=== PATIENT | male | born 1980 | race Caucasian/White ===

== ENCOUNTER 2023-10-21 18:27 | Inpatient (IN) | payer OTHER, SELFPAY ==
[2023-10-21] VITALS (11 sets, daily range): BP systolic 91–118; BP diastolic 55–76; BMI 28.5; BMI 26.5
[2023-10-21 13:47] LABS: % Basophils 0.3 % (0-2); % Immature Granulocytes 0.3 % (0-0.5); % Lymphocytes 9.1 % (20.5-51.1); % Monocytes 1.5 % (1.7-9.3); % Neutrophils 88.8 % (42.2-75.2); Absolute Lymphocytes 0.3 10^3/uL (1.2-3.4); Absolute Monocytes 0.1 10^3/uL (0.1-0.6); Absolute Neutrophils 2.9 10^3/uL (1.4-6.5); Hematocrit 38.9 % (39.0-52.0); Hemoglobin 13.2 g/dL (13.0-18.0); Mean Corp Hgb Conc. 33.9 g/dL (33.0-37.0); Mean Corpuscular Hgb 29.1 pg (27.0-31.0); Mean Corpuscular Volume 85.7 fL (80.0-94.0); Nucleated Red Blood Cells % 0 % (-); Red Blood Cell Count 4.54 10^6/uL (4.70-6.10); Red Cell Dist. Width 13.1 % (11.5-14.5); White Blood Cell Count 3.3 10^3/uL (4.8-10.8)
--- NOTE | 2023-10-21 13:54 | ED.GENMED ---
History of Present Illness
<Lavell Galeas Jr., PA-C - Last Filed: 10/21/23 17:42>
General
Chief Complaint: Change in Mental Status
Source: patient
Exam Limitations: none
Time Seen by Provider: 10/21/23 13:29
Nursing documentation reviewed up to this point in time: agreed with
Travel History
Have you had any contact with someone who has COVID-19?: No
Do you have any symptoms of coronavirus? Fever > 100 degrees, chills, cough, shortness of breath, sore throat, loss of taste or smell, muscle aches, or headache?: No
History of Present Illness
History of Present Illness:
43-year-old male with past medical history of seizure disorder cerebral palsy presenting to the emergency department from [facility] where he was there for suicidal ideation over the past few days coming in with altered mental status and fever
today. He claims that his foot pain to his right foot was also somewhat hypoxic prior to arrival as well. Denies any recent ingestions
Review of Systems
<Lavell Galeas Jr., PA-C - Last Filed: 10/21/23 17:42>
Review of Systems
Allergies reviewed?: Yes
All Other Systems: ROS reviewed and negative except as documented in HPI and ROS
Phy Exam
<Lavell Galeas Jr., PA-C - Last Filed: 10/21/23 17:42>
Physical Exam
Physical Exam:
GENERAL: Alert , in no apparent distress
EYE: pupils equal and reactive
NECK: Supple, no significant adenopathy.
ENT: o/p clr, mmm.
CARDIAC: Regular rate and rhythm .
LUNGS: Clear breath sounds bilaterally, no acute respiratory distress, no wheezes/rales/rhonchi
ABDOMEN: Soft, without focal tenderness, no r/g, no cvat
NEUROLOGICAL: Alert not oriented, no focal neuro deficits
SKIN: Warm and dry, skin intact.
MUSCULOSKELETAL: Significant redness swelling and tenderness palpation to the right lower extremity from the mid pagan and distal eschar to the medial aspect of the forefoot on the right side, well perfused.
PSYCH: Normal and appropriate interaction.
Course
<Lavell Galeas Jr., PA-C - Last Filed: 10/21/23 17:42>
Orders/Labs/Results
Orders:
Orders
10/21/23 13:30
EKG [Electrocardiogram (*1)] Urgent
Reason for Study: Fatigue / Weakness
10/21/23 13:31
EKG- Treatment ONCE
10/21/23 13:36
Acetaminophen Urgent
Comment: ADD ON
Alcohol Urgent
Basic Metabolic Panel Urgent
COVID-19 Antigen Urgent
Source: Nasal Swab
Complete Blood Count/With Diff Urgent
Lactic Acid Urgent
Salicylate Urgent
Comment: ADD ON
Blood Culture Urgent
EMIR Source: Blood/Venous
Specimen Description:
Influenza A+B Rapid Molecular Urgent
EMIR Source: Nasal Swab
Specimen Description:
10/21/23 13:41
0.9% Sodium Chloride 1000 ml [Nss] 2,700 ml IV NOW STA
10/21/23 13:43
Acetaminophen [Tylenol] 650 mg PO NOW STA
10/21/23 13:54
Vancomycin [Vancocin] 2,000 mg 0.9% Sodium Chloride 500 ml [Nss] 500 ml IV NOW
10/21/23 14:03
Fentanyl, Urine Urgent
PTT Urgent
Prothrombin Time Urgent
Urinalysis Reflex To Culture Urgent
Date Specimen was Collected: 10/21/23
Time Specimen was Collected: 13:43
Urine Drug Abuse Screen Urgent
Date Specimen was Collected: 10/21/23
Time Specimen was Collected: 13:43
Urine Microscopic Reflex Cult Urgent
10/21/23 14:13
Add On- LAB Urgent
Tests Added?: alcohol level, salycylate laevel, tylenol level
10/21/23 14:15
Add On- LAB Urgent
Tests Added?: urine drug screen
10/21/23 14:26
Add On- LAB Urgent
Tests Added?: ammonia
10/21/23 14:30
CR Foot - Right Min 3 Views Urgent
Comment:
Reason For Exam: foot infection
10/21/23 14:31
CT Chest Pe Study Urgent
Comment:
Reason For Exam: hypoxemix leg swelling
10/21/23 14:59
Troponin I Urgent
10/21/23 17:25
Ammonia Urgent
Cefepime HCl [Maxipime] 2,000 mg IV NOW STA
10/21/23 17:26
Potassium Urgent
Abnormal Lab Results
10/21/23 10/21/23
13:36 14:03
WBC 3.3 L 10^3/uL
(4.8-10.8)
RBC 4.54 L 10^6/uL
(4.70-6.10)
Hct 38.9 L %
(39.0-52.0)
Absolute Lymphs (auto) 0.3 L 10^3/uL
(1.2-3.4)
Neutrophils % 88.8 H %
(42.2-75.2)
Lymphocytes % 9.1 L %
(20.5-51.1)
Monocytes % 1.5 L %
(1.7-9.3)
PT 16.4 H Sec
(11.4-14.6)
BUN 23 H mg/dl
(9-20)
Creatinine 1.5 H mg/dL
(0.7-1.3)
Urine Ketones Trace A
(Negative)
Urine Bilirubin 1+ A
(Negative)
Leukocyte Esterase Rfl Trace A
(Negative)
Urine Bacteria (Reflex) Few A
(Negative)
Salicylates < 1.0 L mg/dl
(2.0-20.0)
Urine Methadone Screen Positive H
(Negative)
Acetaminophen < 10 L ug/ml
(10-30)
10/21/23 13:36
Vital Signs
Initial and Last Documented VS:
Initial Vital Signs
Temp Pulse Resp BP Pulse Ox
103.2 F H 113 16 103/69 95
10/21/23 13:29 10/21/23 13:29 10/21/23 13:29 10/21/23 13:29 10/21/23 13:29
Last Documented Vital Signs
Temp Pulse Resp BP Pulse Ox
99.4 F 87 13 95/63 2
10/21/23 17:05 10/21/23 17:01 10/21/23 14:45 10/21/23 17:01 10/21/23 13:29
<Kirby Andujar, - Last Filed: 10/21/23 15:28>
Orders/Labs/Results
Orders:
Orders
10/21/23 13:30
EKG [Electrocardiogram (*1)] Urgent
Reason for Study: Fatigue / Weakness
10/21/23 13:31
EKG- Treatment ONCE
10/21/23 13:36
Acetaminophen Urgent
Comment: ADD ON
Alcohol Urgent
Basic Metabolic Panel Urgent
COVID-19 Antigen Urgent
Source: Nasal Swab
Complete Blood Count/With Diff Urgent
Lactic Acid Urgent
Salicylate Urgent
Comment: ADD ON
Blood Culture Urgent
EMIR Source: Blood/Venous
Specimen Description:
Influenza A+B Rapid Molecular Urgent
EMIR Source: Nasal Swab
Specimen Description:
10/21/23 13:41
0.9% Sodium Chloride 1000 ml [Nss] 2,700 ml IV NOW STA
10/21/23 13:43
Acetaminophen [Tylenol] 650 mg PO NOW STA
10/21/23 13:54
Vancomycin [Vancocin] 2,000 mg 0.9% Sodium Chloride 500 ml [Nss] 500 ml IV NOW
10/21/23 14:03
Fentanyl, Urine Urgent
PTT Urgent
Prothrombin Time Urgent
Urinalysis Reflex To Culture Urgent
Date Specimen was Collected: 10/21/23
Time Specimen was Collected: 13:43
Urine Drug Abuse Screen Urgent
Date Specimen was Collected: 10/21/23
Time Specimen was Collected: 13:43
Urine Microscopic Reflex Cult Urgent
10/21/23 14:13
Add On- LAB Urgent
Tests Added?: alcohol level, salycylate laevel, tylenol level
10/21/23 14:15
Add On- LAB Urgent
Tests Added?: urine drug screen
10/21/23 14:26
Add On- LAB Urgent
Tests Added?: ammonia
10/21/23 14:30
CR Foot - Right Min 3 Views Urgent
Comment:
Reason For Exam: foot infection
10/21/23 14:31
CT Chest Pe Study Urgent
Comment:
Reason For Exam: hypoxemix leg swelling
10/21/23 14:59
Troponin I Urgent
10/21/23 17:25
Ammonia Urgent
Cefepime HCl [Maxipime] 2,000 mg IV NOW STA
10/21/23 17:26
Potassium Urgent
Abnormal Lab Results
10/21/23 10/21/23
13:36 14:03
WBC 3.3 L 10^3/uL
(4.8-10.8)
RBC 4.54 L 10^6/uL
(4.70-6.10)
Hct 38.9 L %
(39.0-52.0)
Absolute Lymphs (auto) 0.3 L 10^3/uL
(1.2-3.4)
Neutrophils % 88.8 H %
(42.2-75.2)
Lymphocytes % 9.1 L %
(20.5-51.1)
Monocytes % 1.5 L %
(1.7-9.3)
PT 16.4 H Sec
(11.4-14.6)
BUN 23 H mg/dl
(9-20)
Creatinine 1.5 H mg/dL
(0.7-1.3)
Urine Ketones Trace A
(Negative)
Urine Bilirubin 1+ A
(Negative)
Leukocyte Esterase Rfl Trace A
(Negative)
Urine Bacteria (Reflex) Few A
(Negative)
Salicylates < 1.0 L mg/dl
(2.0-20.0)
Urine Methadone Screen Positive H
(Negative)
Acetaminophen < 10 L ug/ml
(10-30)
10/21/23 13:36
Vital Signs
Initial and Last Documented VS:
Initial Vital Signs
Temp Pulse Resp BP Pulse Ox
103.2 F H 113 16 103/69 95
10/21/23 13:29 10/21/23 13:29 10/21/23 13:29 10/21/23 13:29 10/21/23 13:29
Last Documented Vital Signs
Temp Pulse Resp BP Pulse Ox
99.4 F 87 13 95/63 2
10/21/23 17:05 10/21/23 17:01 10/21/23 14:45 10/21/23 17:01 10/21/23 13:29
<KM Spencer Jr.C - Last Filed: 10/21/23 17:42>
MDM/Problems Addressed
MDM/Problems Addressed:
43-year-old male presenting to the emergency department today with concerns of altered mental status and fever from [facility] where he is currently residing due to suicidal ideation. On arrival temperature of 103.2 elevated heart rate
concern for sepsis and with likely infection source from the right foot concerning is red warm and tender. Started on IV antibiotics white count of 3.3 was given acetaminophen as well as started on a fluid bolus. Creatinine level elevated to 1.5
unclear where his baseline is no elevation of lactic acid. Urinalysis without signs of infection. Patient's hypoxia improving after receiving 2 L nasal cannula. Patient did have hypoxemia. Unclear the source CT scan was obtained to rule out PE
without evidence of PE no signs of significant pneumonia. Patient is an intravenous drug user previously concern for potential endocarditis. Blood cultures have already been sent and is being treated with empiric antibiotics plan for additional
evaluation. Patient will be admitted. Stable during ER stay.
<Lavell Galeas Jr., PA-C - Last Filed: 10/21/23 17:42>
*Critical Care Note
Total Time (30-74mins, 75-104mins- exclusive of procedures): Not Applicable
ED Attending Note
<Lavell Galeas Jr., PA-C - Last Filed: 10/21/23 17:42>
-
Portions of this chart may have been created with voice recognition software.� Occasional wrong word or��sound alike� substitutions may have occurred due to the inherent limitations of voice recognition software.
<Kirby Andujar DO - Last Filed: 10/21/23 15:28>
ED Attending Note
Patient seen and examined by attending physician: Yes
I performed the substantive portion of visit, reviewed & personally made and approve the management plan that is documented in note by myself or DAVID.: Yes
ED Attending Note:
Patient is a 43-year-old male who is brought in from [facility] where he was hospitalized for suicidal ideation and presents with change in mental status being more lethargic as well as a pulse ox below 90%. Patient admits to feeling feverish
and chilled. Patient denies coughing or nasal congestion. Patient denies feeling short of breath. Patient denies any GI or symptoms. Patient has noted that his right foot and leg are getting more swollen and red over the past 24 to 48 hours.
It was not noted originally by the staff at [facility]. On physical exam patient's cerebral palsy findings are unchanged. Patient does appear pale with dry mucous membranes. Head is normocephalic with a supple neck without adenopathy. Heart
is regular and lungs are clear. Abdomen soft nontender. On the patient's right lower extremity there is large amount of erythema and swelling of the foot and right lower leg. There is an eschar that is approximately 2 cm in diameter located on
the plantar surface of the first MTP. Concern the patient has osteomyelitis. The patient really does not have any respiratory type symptoms however we will CT his chest for etiology. Patient will be treated with antibiotics and admitted.
Discharge Plan
Departure
Patient Disposition: Admit
Date of Disposition: 10/21/23
Time of Disposition: 17:41
Admit to: IMU
Admit to doctor: Trevor
Presentation/result/management discussed w/ accepting MD/DO: Hospitalist
Patient with high blood pressure during this ER visit?: No
Condition: Good
Covid-19: Not Applicable
Discharge Problem:
Sepsis, Foot infection, Hypoxemia
Prescriptions:
No Action
trazodone 50 mg Tablet
50 mg PO HS
methadone 10 mg Tablet
140 mg PO DAILY
clonazepam 0.5 mg Tablet
0.5 mg PO QID
sertraline 100 mg Tablet
100 mg PO BID
olanzapine 5 mg Tablet
5 mg PO DAILY
loperamide 2 mg Tablet
2 mg PO Q4H PRN (Reason: diarrhea)
divalproex 500 mg Tablet,Delayed Release (Dr/Ec)
1,000 mg PO HS
divalproex 500 mg Tablet,Delayed Release (Dr/Ec)
250 mg PO DAILY
omeprazole 40 mg Capsule,Delayed Release(Dr/Ec)
40 mg PO DAILY
magnesium hydroxide [Milk of Magnesia] 400 mg/5 mL Suspension
2,400 mg PO BIDPRN PRN (Reason: constipation)
nicotine 21 mg/24 hr Patch 24 Hour
1 patch TRANSDERMAL DAILY
gabapentin 100 mg Capsule
100 mg PO DAILY
olanzapine 20 mg Tablet
20 mg PO HS
Referrals:
UNKNOWN - PT NOT,INTERVIEWE [Family Provider] -
Interventions
Interventions:
*Risk Screen - Suicide Last Done: 10/21/23 13:29
*General Assessment Last Done: 10/21/23 13:29
*Neglect/Abuse Screening Last Done: 10/21/23 13:29
ED- Fall Risk Assessment Last Done: 10/21/23 13:29
*ED COVID-19 Vaccine History Last Done: 10/21/23 13:29
ED- Pulmonary Assessment Last Done: 10/21/23 13:29
ED-Psychological Assessment Last Done: 10/21/23 13:29
ED- Neurological Assessment Last Done: 10/21/23 13:29
ED- Cardiac Assessment Last Done: 10/21/23 13:29
ED Swallowing Screen Last Done: 10/21/23 13:29
--- NOTE | 2023-10-21 14:00 | EDRN ---
the pts Sp02 dipped to 91% on 2L NC, this RN notified provider Cristhian NASH and this RN titrated 02 up to 4L NC, Sp02 came up to 96%, will continue to monitor the pt closely
[2023-10-21] MEDS: NSS 2700 ML IV (14:02)
[2023-10-21] MEDS: TYLENOL 650 MG PO ×2 (14:02→20:38)
[2023-10-21 14:04] LABS: COVID-19 Antigen Negative (Negative)
[2023-10-21 14:08] LABS: Lactic Acid 1.6 mmol/L (0.7-2.0)
[2023-10-21] MEDS: VANCOCIN 540 MG IV (14:13)
[2023-10-21 14:28] LABS: Urine Albumin Trace (Neg - Trace); Urine Bilirubin 1+ (Negative); Urine Character Clear (Clear); Urine Color Yellow; Urine Glucose Negative (Negative); Urine Ketone Trace (Negative); Urine Leukocyte Trace (Negative); Urine Nitrite Negative (Negative); Urine Occult Blood Negative (Negative); Urine Specific Gravity 1.015 (<1.030); Urine Urobilinogen Negative (Neg - 1+)
[2023-10-21 14:31] LABS: INR 1.34; PT 16.4 Sec (11.4-14.6)
[2023-10-21 14:32] LABS: APTT 30.2 Sec (23.4-35.0)
[2023-10-21 14:35] LABS: Blood Urea Nitrogen 23 mg/dl (9-20); Calcium 8.6 mg/dl (8.4-10.2); Carbon Dioxide 23 mmol/L (22-30); Chloride 100 mmol/L (98-107); Estimated Creatinine Clearance 64 ml/min; Glucose 88 mg/dl (70-99); Sodium 135 mmol/L (135-145); eGFR 58.15
[2023-10-21 14:48] LABS: Urine Bacteria Few (Negative)
[2023-10-21 14:49] LABS: Urine Red Blood Cell 0-2 /HPF (0-2); Urine White Cell 0-2 /HPF (0-5)
[2023-10-21 15:16] LABS: Acetaminophen < 10 ug/ml (10-30); Alcohol None Detected; Salicylate < 1.0 mg/dl (2.0-20.0)
[2023-10-21 15:33] LABS: Amphetamines Negative (Negative); Barbiturates Negative (Negative); Benzodiazepines Negative (Negative); Buprenorphine Negative (Negative); Cocaine Negative (Negative); Marijuana Negative (Negative); Methadone Positive (Negative); Methamphetamines Negative (Negative); Opiates Negative (Negative); Phencyclidine Negative (Negative); Tricyclic Antidepressants Negative (Negative)
[2023-10-21 15:40] LABS: Troponin I < 0.012 ng/ml
[2023-10-21 15:49] LABS: Fentanyl, Urine Negative (Negative)
[2023-10-21] MEDS: MAXIPIME 2000 MG IV (17:39)
[2023-10-21 17:41] LABS: Ammonia < 9 umol/L (9-30)
[2023-10-21 18:17] LABS: Potassium 3.1 mmol/L (3.5-5.1)
--- NOTE | 2023-10-21 18:19 | HPS.HSE ---
Addendum entered and electronically signed by Mike Hearn MD 10/21/23 18:40:
I saw and examined the patient.
The SEAT COVER MAKER or PA's note was reviewed and I agree with the note.
Comment: 43-year-old male presents from [facility] where he had been admitted 4 days ago for presentation of suicidal ADHD and and now presents to this facility with a apparent sepsis presentation change in mental status that is improved
somewhat since arrival as was basically poorly responsive and now awake and alert although looks to be chronically ill and presenting with a fever of over 103 with an obviously infected right lower extremity from just below the knee involving the
entire foot with a large chronic appearing eschar at the base of his right great toe. His blood pressure is soft at 92 systolic he is not tachycardic but is hypoxic looks malnourished and he is leukopenic. Initial CT PE study shows no evidence of
pulmonary emboli or pneumonic infiltrate. Has been empirically started on vancomycin and cefepime in the ED. He is on chronic methadone maintenance along with a history of seizure disorder on valproate no recent seizures related by patient.
Initial plain radiologic imaging of the right foot does not show evidence of bone involvement
CT of the chest unremarkable for PE or pneumonic infiltrate
Urine drug screen only positive for methadone/presently negative for benzodiazepines although listed medication on clonazepam 4 times daily
Presentation is consistent with sepsis presumed source right lower extremity/with eschar appearance would not be at all surprised if has underlying osteomyelitis and agree with MRI
-Obtain podiatry consultation
-Continue course of vancomycin and cefepime
-Prior history of MRSA
-Assess for bacteremia blood cultures pending
-Given history of IV drug abuse obtain 2D echocardiogram
-Hypoxia source not obvious after review of CTA of chest possibly in relation to sepsis
-Check for COVID
-Given presentation and history obtain HIV
Seizure history--Obtain valproic level/
Acute kidney injury
-Unclear what his baseline is but does present hypertensive
-So will probably benefit from fluid bolus and fluids IV overnight at least
-Recheck BMP in a.m.
Opioid dependent on main maintenance methadone
-Continue on present dosing
Recent suicidal ideation
-None noted or admitted to presently
-Obtain psychiatry consultation if that changes
Rest of comorbidities as outlined by SEAT COVER MAKER and discussed and agreed on
Original Note:
Family Physician
-
Family Physician: INTERVIEWE UNKNOWN - PT NOT
Chief Complaint
-
Fever
History of Present Illness
Pt is a 43yo M w/ a PMH of Cerebral Palsy, Anxiety, Depression, Auditory Hallucinations w/ accompanying Suicidal Ideations and IV drug use who is presenting to the ED from [facility] c/o altered mentation and fever. He states he is feeling
better now, but was feeling 'out of sorts' prior to his arrival. Upon arrival patient was noted to have a fever of 103.2F. He admits that his right foot has been looking good, but it unclear of the timeline. He does admit to previously having MRSA
in that foot and requiring surgery for infection of the foot. He admits to prior IVDA but denies any usage since 2006.
Medical History
Past Medical History
Past Medical History: Reports Other
Additional Past Medical History:
Anxiety/Auditory Hallucination
Seizure Disorder
Cerebral Palsy
IV Drug Abuse
Past Surgical History: Reports Other
Additional Past Surgical History:
Right Foot Infection s/p I&D
Hip Replacement
Social History
Tobacco: Smoker (1 ppd)
Alcohol: Former (Quit in 2006)
Drug: Former User (Quit in 2006)
Family History
Family History: Not pertinent
Allergies / Home Medications
Allergies reflects when Allergies were last updated in [facility].
Home Medications with original date entered in [facility]
Allergy/Medication List:
Allergies
Allergy/AdvReac Type Severity Reaction Status Date / Time
aripiprazole [From Abilify] Allergy Rash Verified 10/21/23 13:44
Home Medications
clonazepam 0.5 mg tablet 0.5 mg PO QID 10/21/23
divalproex 500 mg tablet,delayed release 1,000 mg PO HS 10/21/23
divalproex 500 mg tablet,delayed release 250 mg PO DAILY 10/21/23
gabapentin 100 mg capsule 100 mg PO DAILY 10/21/23
loperamide 2 mg tablet 2 mg PO Q4H PRN diarrhea 10/21/23
magnesium hydroxide 400 mg/5 mL oral suspension (Milk of Magnesia) 2,400 mg PO BIDPRN PRN constipation 10/21/23
methadone 10 mg tablet 140 mg PO DAILY 10/21/23
nicotine 21 mg/24 hr daily transdermal patch 1 patch transdermal DAILY 10/21/23
olanzapine 20 mg tablet 20 mg PO HS 10/21/23
olanzapine 5 mg tablet 5 mg PO DAILY 10/21/23
omeprazole 40 mg capsule,delayed release 40 mg PO DAILY 10/21/23
sertraline 100 mg tablet 100 mg PO BID 10/21/23
trazodone 50 mg tablet 50 mg PO HS 10/21/23
Review of Systems
-
A 12 point ROS was completed and negative except as noted: Yes
Constitutional: Reports Fever
Respiratory: Denies Trouble Breathing
Cardiac: Denies Chest Pain or Palpitations
Abdomen/GI: Denies Abdominal Pain, Nausea, Vomiting or Diarrhea
Physical Exam
Vital Signs
Vital Signs
Temp Pulse Resp BP Pulse Ox
99.4 F 87 13 92/61 2
10/21/23 17:05 10/21/23 18:00 10/21/23 14:45 10/21/23 17:37 10/21/23 13:29
Physical Exam
General: Other (Appears ill with poor coloring)
HEENT: Moist mucous membranes and Oxygen (Nasal cannula)
Respiratory: Clear and Non Labored Respirations
Cardiac: S1/S2 and Regular Rhythm
GI: Soft and Non Tender
Musculoskeletal: No Clubbing and No Cyanosis
Skin: Warm, Dry and Other (Erythema right foot extending up the pagan; Large callous with non-healing wound in area of 1st MTP joint)
Neuro: Awake, Alert and Oriented
Psych: Calm
Laboratory Results
-
10/21/23 13:36
10/21/23 17:42
Laboratory Results
PT 16.4 Sec (11.4-14.6) H 10/21/23 14:03
INR 1.34 10/21/23 14:03
APTT 30.2 Sec (23.4-35.0) 10/21/23 14:03
Lactic Acid 1.6 mmol/L (0.7-2.0) 10/21/23 13:36
Total Bilirubin Cancelled 10/21/23 13:36
AST Cancelled 10/21/23 13:36
ALT Cancelled 10/21/23 13:36
Alkaline Phosphatase Cancelled 10/21/23 13:36
Troponin I < 0.012 ng/ml 10/21/23 14:59
Data Reviewed
-
Lab Data: Labs Reviewed by me
Impression/Plan
-
Severe Sepsis secondary to RLE Cellulitis secondary to Non-Healing Wound
-Admit to IMU
-Check Foot MRI as concern for possible underlying osteomyelitis
-Check Echo
-Await blood cultures
-Continue vancomycin and cefepime
-Consult Wound Care
-Consult Podiatry
Acute Kidney Injury
-Continue IVFs
-Recheck labs in AM
Seizure Disorder
-Continue divalproex - Check level
Anxiety/Auditory Hallucinations
-Patient from [facility]
-Continue regimen clonazepam, olanzapine, sertraline and trazodone as prior to admission
Opioid Dependence
-Continue methadone as prior to admission
Tobacco Use Disorder
-Encourage smoking cessation
-Continue nicotine patch
DVT proph: Lovenox
Code Status: Full Code
[2023-10-21] MEDS: KCL 40 MEQ PO (18:53)
--- NOTE | 2023-10-21 19:07 | EDRN ---
Cristhian Galeas stated that the pt was in [facility] for suicidal ideation, this RN spoke with the pt and the pt denies feeling like he wants to harm himself currently, the pt stated to this RN that he has felt better the past two days, Cristhian NASH
made aware of this along with Sridevi Byrne
--- NOTE | 2023-10-21 19:12 | EDRN ---
Charge nurse notified of the pt needing to be on a one to one
--- NOTE | 2023-10-21 19:18 | EDRN ---
verbal report given to receiving IMU nurse
--- NOTE | 2023-10-21 19:24 | EDRN ---
this Rn spoke with the pt again and the pt denies feeling like he is going to hurt himself or others, the pt stated to this RN, 'I don't want to hurt myself at all i was just having a weak moment and went to [facility] for help, i feel much
better now, i promise i don't feel suicidal at all, i understand that you are worried about me', this RN notified Cristhian Galeas and Sridevi Byrne and per provider the pt is to be on a one to one, charge nurse and equipment records supervisor notified again
--- NOTE | 2023-10-21 20:22 | PHA.VAN.IN ---
Assessment
- Assessment
Renal Function: Unknown baseline
Maximum Temperature: 103.2 F oral 10/21 @ 1329
Concomitant Antimicrobials: cefepime
Plan
- Plan
Initial / Loading Dose: vanc 2000mg given in ED @ 1413 + additional 500mg pending administration
Maintenance Regimen: dosing by level
Monitoring: random level 10/22 0600
Pharmacokinetics Vancomycin I
- -
Patient Age: 43
Patient Sex: Male
Vancomycin Day #: 1
Indication: Diabetic Foot
Requesting Provider: Sridevi Hassan
Pertinent Antimicrobial Allergies:
no pertinent antimicrobial allergies
Height / Weight:
Height 6 ft 1 in
Actual Weight 91.2 kg
- Vital Signs / Lab Results
Temp Pulse Resp BP Pulse Ox
98.9 F 89 13 115/72 2
10/21/23 20:08 10/21/23 19:30 10/21/23 14:45 10/21/23 18:56 10/21/23 13:29
Lab Results - Hematology
10/21/23
13:36
WBC 3.3 L
Lab Results - Chemistry
10/21/23 10/21/23 10/21/23
13:36 13:36 13:36
BUN Cancelled 23 H
Creatinine Cancelled 1.5 H
Estimated Creat Clear Cancelled
Albumin
10/21/23
13:36
BUN
Creatinine
Estimated Creat Clear 64
Albumin Cancelled
10/21/23
13:36
Lactic Acid 1.6
Lab Results - Urine
10/21/23
14:03
Urine Nitrite (Reflex) Negative
Leukocyte Esterase Rfl Trace A
Urine WBC (Reflex) 0-2
Urine Bacteria (Reflex) Few A
Microbiology Results
10/21/23 13:36 Influenza Types A & B (JODI) - Final
Nasal Swab Negative for Influenza A & B, NAAT
Negative results must be combined with clinical observations
and patient history.
Nucleic Acid Amplification test (NAAT)performed on the
[facility] [employer] platform.
[2023-10-21] MEDS: DESYREL 50 MG PO (20:37)
[2023-10-21] MEDS: DEPAKOTE (12 HR RELEASE) 1000 MG PO (20:39)
[2023-10-21] MEDS: ZOLOFT 100 MG PO (20:39)
[2023-10-21] MEDS: ZYPREXA 20 MG PO (20:39)
[2023-10-21] MEDS: KLONOPIN 0.5 MG PO (20:40)
[2023-10-21 20:47] LABS: HIV Combo Negative (Negative)
[2023-10-21] MEDS: NSS 1000 IV (20:47)
[2023-10-21] MEDS: VANCOCIN HCL 500 MG 100 IV (20:59)
--- NOTE | 2023-10-21 21:02 | W.CS.POD ---
Consult Summary - Podiatry
-
43-year-old male presents from [facility] where he had been admitted 4 days ago for presentation of suicidal ADHD and and now presents to the [facility] with fever and change of mental status , Podiatry has been asked to evaluate Rt foot
cellultis/abscess. Patient says that he has Rt foot callus lesion for long time and some times the lesion falls of sometimes. He does not have any dormitory counselor that he follows, he does says that few yrs ago he had Rt foot surgery . HE is is in no
acute distress, no SOB, no chest pain
Reviewed PMH, meds and allergies
Exm : Rt foot edematous, palpable pedal pulses
Rt lower leg and foot is erythematous, warm to touch.
Rt submet 1st thick callus lesion with an area of small blister around the callus, no drainage , no open ulceration noted, no signs of any crepitus felt. no signs of any deep abscess felt.
WBC count 3.3
Xrays Rt foot no bone pathology or osteomyelitis
A/p: Rt lower leg and foot cellultis.
Rt plantar large callus lesion.
Plan ; PT evaluated in ER
Cont IV abx
Pending Rt foot MRI. r/o any fluid collection /abscess
Podiatry will follow,
--- NOTE | 2023-10-21 21:03 | PTCARENOTE ---
Patient arrived to room 3351 around 1999. Afebrile. Oriented to room and use of call bowman. CHG wipe down, tele monitor applied showing NSR. 02 2L NC, 99%. 1:1 sitter at bedside for SI. Pt denies any SI at this time, and instructed to report to staff
if feeling any ideations. Admission questions done, emergency contact is step mother Charis who lives in [place].
RLE red, warm, and swollen; +1 pedal pulses, elevated on pillow. Reports chronic pain to right hip, medicated per OCT. RLE nerve pain is intermittent. Pt ate a lunch box, no swallowing issues present. MRSA swab sent. Plan for MRI tomorrow.
[2023-10-22] VITALS (14 sets, daily range): BP systolic 89–138; BP diastolic 50–86; PULSE 81; O2SAT 98
[2023-10-22] MEDS: TYLENOL 650 MG PO ×2 (00:05→15:50)
[2023-10-22] MEDS: STERILE WATER FOR INJECTION 10 ML IV ×3 (02:55→17:50)
[2023-10-22] MEDS: MAXIPIME 2000 MG IV ×3 (02:55→17:49)
--- NOTE | 2023-10-22 04:15 | DOWNTIME ---
There was a [employer] Downtime on 10/22/2023 from 0111 to 10/22/2023 at 0405. Downtime documentation of patient's care, including medication administrations, has been reconciled in the electronic record per guidelines. Refer to the
patient's paper chart under the miscellaneous tab to see printed paper medication records and downtime forms.
[2023-10-22 06:02] LABS: Hematocrit 28.2 % (39.0-52.0); Hemoglobin 9.8 g/dL (13.0-18.0); Mean Corp Hgb Conc. 34.8 g/dL (33.0-37.0); Mean Corpuscular Hgb 29.4 pg (27.0-31.0); Mean Corpuscular Volume 84.7 fL (80.0-94.0); Mean Platelet Volume 11.9 fL (7.4-10.4); Platelet Count 61 10^3/uL (130-400); Red Blood Cell Count 3.33 10^6/uL (4.70-6.10); Red Cell Dist. Width 13.3 % (11.5-14.5); White Blood Cell Count 4.4 10^3/uL (4.8-10.8)
[2023-10-22 06:05] LABS: Vancomycin Random 16.9 ug/ml
[2023-10-22 06:25] LABS: ALT (SGPT) < 10 U/L (0-50); AST (SGOT) 28 U/L (17-59); Albumin 2.5 g/dl (3.5-5.0); Alkaline Phosphatase 52 U/L (38-126); Blood Urea Nitrogen 19 mg/dl (9-20); Calcium 7.3 mg/dl (8.4-10.2); Carbon Dioxide 18 mmol/L (22-30); Chloride 107 mmol/L (98-107); Estimated Creatinine Clearance 81 ml/min; Glucose 102 mg/dl (70-99); Magnesium 1.8 mg/dl (1.6-2.3); Potassium 3.6 mmol/L (3.5-5.1); Sodium 135 mmol/L (135-145); Total Bilirubin 0.5 mg/dl (0.2-1.3); Total Protein 5.7 g/dl (6.3-8.2); eGFR > 60.00
[2023-10-22 06:29] LABS: Depakane 90.1 ug/ml (50.0-120.0)
--- NOTE | 2023-10-22 07:02 | W.PN.HOSP.TC ---
Today's Communication/Plan
-
Continue present course of vancomycin and cefepime
Monitor thrombocytopenia and anemia
Obtain iron and B12 levels
Await blood culture results appreciate podiatry input
If blood cultures turn down man positive will obtain infectious disease consult for a protracted fever with continued leukopenia
Will obtain 2D echocardiogram to further evaluate
Psych consultation pending/recent suicidal ideation and came to us from [facility]
Assessment / Plan
Assessment / Plan
43-year-old male presents from [facility] where he had been admitted 4 days ago for presentation of suicidal ADHD and and now presents to this facility with a apparent sepsis presentation change in mental status that is improved somewhat since
arrival as was basically poorly responsive and now awake and alert although looks to be chronically ill and presenting with a fever of over 103 with an obviously infected right lower extremity from just below the knee involving the entire foot with
a large chronic appearing eschar at the base of his right great toe.� His blood pressure is soft at 92 systolic he is not tachycardic but is hypoxic looks malnourished and he is leukopenic.� Initial CT PE study shows no evidence of pulmonary emboli
or pneumonic infiltrate.� Has been empirically started on vancomycin and cefepime in the ED.� He is on chronic methadone maintenance along with a history of seizure disorder on valproate no recent seizures related by patient.
Initial plain radiologic imaging of the right foot does not show evidence of bone involvement
CT of the chest unremarkable for PE or pneumonic infiltrate
Urine drug screen only positive for methadone/presently negative for benzodiazepines although listed medication on clonazepam 4 times daily
Severe Sepsis secondary to RLE Cellulitis secondary to Non-Healing Wound
-Admit to IMU
-Check Foot MRI as concern for possible underlying osteomyelitis
-Check Echo
-Await blood cultures
-Continue vancomycin and cefepime
-Consult Wound Care
-Consult Podiatry appreciated
-History of MRSA/check screening
-If blood cultures positive will obtain infectious disease input
Acute Kidney Injury
-Continue IVFs
-Recheck labs in AM/creatinine dropped from 1.5-1.3
Anemia/pancytopenia?
-Leukopenia on presentation and initial hemoglobin 13.2>>> now 9.8 after fluids
-Thrombocytopenia/unclear baseline we will have to monitor with DVT prophylaxis and defer further chemical prophylaxis
-HIV pending
Seizure Disorder
-Continue divalproex - Check level
Anxiety/Auditory Hallucinations
-Patient from [facility]
-Continue regimen clonazepam, olanzapine, sertraline and trazodone as prior to admission
Opioid Dependence
-Continue methadone as prior to admission
Tobacco Use Disorder
-Encourage smoking cessation
-Continue nicotine patch
DVT proph: Lovenox
Code Status: Full Code
Anticipated Discharge: 24 - 48 hours
Subjective/Interval History
-
Date of Service: October 22, 2023
No distress overnight remains on low-flow O2 BP borderline soft denies much pain denies any suicidal ideation although remains on one-to-one again febrile overnight up to 101
Objective Data
-
Labs:
Laboratory Results
10/22/23
04:50
WBC 4.4 L
Hgb 9.8 L D
Hct 28.2 L
Plt Count 61 L
Sodium 135
Potassium 3.6
Chloride 107
Carbon Dioxide 18 L
BUN 19
Creatinine 1.3
Glucose 102 H
Calcium 7.3 L
Total Bilirubin 0.5
AST 28
ALT < 10
Alkaline Phosphatase 52
Vital Signs:
Vital Signs
Temp Pulse Resp BP Pulse Ox
99.1 F 89 13 93/52 95
10/22/23 04:18 10/22/23 06:01 10/22/23 06:01 10/22/23 06:01 10/22/23 06:01
I&O
10/21/23 10/22/23 10/23/23
06:59 06:59 06:59
Intake Total 1040 / 1040
Output Total 2400 / 2400
Balance -1360 / -1360
Review of Systems
-
History Source: Patient
Constitutional: Reports Fever and Fatigue
Musculoskeletal: Reports Muscle Pain, Muscle Stiffness and Edema (Right lower extremity)
Physical Exam
-
General: Appears Chronically Ill
HEENT: Normocephalic
Respiratory: Clear to Auscultation
Cardiac: Regular Rhythm
GI: Soft
Musculoskeletal: Edema, Right Lower Extrem (Erythematous/right foot edematous with palpable pedal pulses in the area submetatarsal in the first toe thick callus)
Psych: Intact Judgement/Insight (Denies present suicidal ideation)
Data Reviewed
-
Total Time Spent with Patient (in minutes): 45
Diagnostic Radiology: Report Reviewed by me (No evidence of any osteomyelitis based on right foot plain x-ray)
Labs: Labs Reviewed by me
[2023-10-22 07:05] LABS: HIV Combo Negative (Negative)
[2023-10-22] MEDS: ZOLOFT 100 MG PO ×2 (08:23→21:00)
[2023-10-22] MEDS: PROTONIX 40 MG PO (08:23)
[2023-10-22] MEDS: NEURONTIN 100 MG PO (08:23)
[2023-10-22] MEDS: KLONOPIN 0.5 MG PO ×4 (08:23→21:00)
[2023-10-22] MEDS: NSS 1000 IV ×2 (08:23→21:04)
[2023-10-22] MEDS: ZYPREXA 5 MG PO (08:23)
--- NOTE | 2023-10-22 08:23 | WOUNDNOTE ---
R PLANTAR 1ST MTH
[2023-10-22] MEDS: METHADONE 100 MG/10 ML 140 MG PO (08:24)
[2023-10-22] MEDS: DEPAKOTE (12 HR RELEASE) 250 MG PO (08:24)
--- NOTE | 2023-10-22 08:27 | WOUNDNOTE ---
[facility] RN note: Patient admitted with sepsis, RLE cellulitis. Patient admitted from [facility] for suicidal ideation. Patient is currently on a 1:1 (PCT Jaiden in room).
See H&P for complete history.
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
Wound Location and type/assessment: Patient admitted with: R plantar lateral 1st MTH brown/black necrotic dry ulcer with callus. No drainage. +diffuse RLE erythema. Trace-+1 RLE edema. +Palpable pedal pulses. Patient is able to ambulate. He is
currently R heel weight bear only RLE. Patient's shoe size 13.
Appetite: on regular diet.
Pressure redistribution devices in place: Centrella Max air. Patient can turn self in bed.
Plan: gauze dressing applied to R foot ulcer/callus. Podiatry on consult who will manage R foot ulcer.
Discussed with BLAYNE Hernandez.
Care plan to be updated and will follow as needed. Patient to follow up with firewall administrator.
--- NOTE | 2023-10-22 08:33 | PHA.VAN.FU ---
Vancomycin Assessment / Plan
- Assessment
Renal Function: SCR Decreasing (Unknown baseline. But seems to be improving)
WBC's are: Trending Down
In the past 24 hrs, patient has been: Febrile
Concomitant Antimicrobials: Cefepime
- Assessment - Therapeutic Drug Monitoring
Random Level: 10/22 @ 0440 was 16.9
- Dosing Plan
Dosing by Level: Re-dose today (1250mg)
Will continue to dose by level until baseline SCR is established
- Monitoring Plan
Random Level: 10/23 @0600
- Follow Up
Pharmacy will continue to follow.
Vancomycin Follow UP
- -
Patient Age: 43
Patient Sex: Male
Vancomycin Day #: 2
Indication: Diabetic Foot
Requesting Provider: Sridevi Hassan
Pertinent Antimicrobial Allergies:
no pertinent antimicrobial allergies
Height / Weight:
Height 6 ft 1 in
Actual Weight 91.2 kg
- Vital Signs / Lab Results
Temp Pulse Resp BP Pulse Ox
98.5 F 89 13 93/52 95
10/22/23 07:24 10/22/23 06:01 10/22/23 06:01 10/22/23 06:01 10/22/23 06:01
Lab Results - Hematology
10/21/23 10/22/23
13:36 04:50
WBC 3.3 L 4.4 L
Lab Results - Chemistry
10/21/23 10/21/23 10/21/23
13:36 13:36 13:36
BUN Cancelled 23 H
Creatinine Cancelled 1.5 H
Estimated Creat Clear Cancelled
Albumin
10/21/23 10/22/23
13:36 04:50
BUN 19
Creatinine 1.3
Estimated Creat Clear 64 81
Albumin Cancelled 2.5 L
10/21/23
13:36
Lactic Acid 1.6
Lab Results - Urine
10/21/23
14:03
Urine Nitrite (Reflex) Negative
Leukocyte Esterase Rfl Trace A
Microbiology Results
10/21/23 13:36 Influenza Types A & B (JODI) - Final
Nasal Swab Negative for Influenza A & B, NAAT
Negative results must be combined with clinical observations
and patient history.
Nucleic Acid Amplification test (NAAT)performed on the
[employer] platform.
Therapeutic Drug Monitoring
Random Vancomycin 16.9 ug/ml 10/22/23 04:50
--- NOTE | 2023-10-22 08:36 | WOUNDNOTE ---
[facility] RN note: Patient admitted with sepsis, RLE cellulitis. Patient admitted from [facility] for suicidal ideation. Patient is currently on a 1:1 (PCT Jaiden in room).
See H&P for complete history.
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
Wound Location and type/assessment: Patient admitted with: R plantar medial 1st MTH brown/black necrotic dry ulcer with callus. No drainage. +diffuse RLE erythema. Trace-+1 RLE edema. +Palpable pedal pulses. Patient is able to ambulate. He is
currently R heel weight bear only RLE. Patient's shoe size 13.
Appetite: on regular diet.
Pressure redistribution devices in place: Centrella Max air. Patient can turn self in bed.
Plan: gauze dressing applied to R foot ulcer/callus. Heels elevated off bed with pillow. Podiatry on consult who will manage R foot ulcer. Will follow peripherally as needed.
Discussed with BLAYNE Hernandez.
Care plan to be updated and will follow as needed. Patient to follow up with anaesthesiologist.
[2023-10-22 08:58] LABS: Iron 29 ug/dl (49-181)
[2023-10-22 08:59] LABS: Glycohemoglobin (HgbA1c) 5.4 % (4.0-5.6)
[2023-10-22 09:07] LABS: Percent Saturation 14 % (20-50); Total Iron Binding Capacity 207 ug/dl (261-462)
[2023-10-22] MEDS: NICODERM TRANSDERMAL TRANSDERM (09:18)
[2023-10-22 09:34] LABS: Vitamin B12 733 pg/ml (239-931)
--- NOTE | 2023-10-22 09:39 | PTCARENOTE ---
Pt transported to MRI with PCT Jaiden.
[2023-10-22] MEDS: NICODERM TRANSDERMAL 21 MG TRANSDERM (10:59)
[2023-10-22] MEDS: VANCOCIN 275 MG IV (11:58)
--- NOTE | 2023-10-22 12:33 | CON.MD ---
Consultation - Medical
-
patient seen chart reviewed. spoke with cm. the patient is a 43 year old male from [place] who was being rx at a psych out pt facility there who was referred to [facility] for depression and si. he was there only three or four days before being
sent here for a foot infection. he reports the foot infection is not new. he has dealt with it for about two years. he denies that he is diabetic. glucose on admit is 102. this consult was ordered for si. the patient does report si but no plan or
intent. he does hear voices telling him derogatory things about himself. sometimes the voices do tell him to kill himself but he has never acted on it and says he never would. sleep is not good. has difficulty falling and staying asleep. appetite
good w weight gain of 25 lbs. he can enjoy some aspects of life. liked talking to the other patients at [facility]. he does not have much energy generally. he is impaired by Cerebral palsy. he had received PT in the past and did well but sees
his physical conditioning as having deteriorated a lot in recent past. he has little emotional support. family is scattered see social hx below patient w hx addiction see below. current psych meds klonopin o.5 mg q id this dose he has taken for
many years. was on xanax in the past . zoloft increased from 150 daily to 200 mg daily zyprexa inc from 5 mg daily to 25 mg daily trazodone 50 mg q hs he does feel current psych meds are helping' i need a few more days on it'
past psych hx patient has had four psych admits for depression/hallucinations. has never made a suicide attempt and says he would not was rx [facility] as an out pt
medical hx patient has infected foot/leg which is currently being assessed. there is concern re osteomyelitis. anemia indices microcytic and iron studies support deficiency thereof b12 normal... tcp wbc low despite infection patient born w cp.
seizure d/o on depakote 1250 mg daily gabapentin once daily ?pain? patient on methadone maintenance
substance abuse hx etoh and opiate abuse many years ago. has taken methadone for since 2006 and remained sober
fh addiction
social hx lives alone. parents while he was young. lived w dad who is now and stepmother. his mother lives in [place]. stepmother in [facility]. little contact w either. brother recently dx w ca. does not speak to him. no hx sexual or
physical trauma. on disability. never really gainfully employed few supports
mse alert ox3 cooperative some psychomotor slowing not clear if result of cp or depression. speech very soft at time hard to hear thought process goal oriented hallucinations as above depressed mood constricted affect suicidal thoughts no intent
or plan insight judgment fair memory seems intact
dx major depression w psychotic fx
plan would continue meds as they are for now. i did wonder if the bzp and methadone are making him sedating but it could also be infection/illness in addition to natural demeanor. will monitor. do not feel he needs one to one. he has si but says
would never act on it. should return to [facility] upon medical clearance we will follow
--- NOTE | 2023-10-22 14:39 | CM ---
Patient from [facility] with Hx Cerebral Palsy with Dx Severe Sepsis secondary to RLE Cellulitis secondary to Non-Healing Wound, PATRICIA, Anemia/pancytopenia? Room air. Receiving methadone, IV Abx. Psych Consult noted-
recommend off 1:1. Seen by wound care nurse.
PT Eval 10/22; requires mod-max assist of 2 for transfers, not ambulated as patient unable to maintain heel only WB on right, recommend skilled rehab.
Met with patient who resides alone in a 5th floor apartment in elevator building in [facility].
The patient has been independent in ADLs and ambulation using his SPC.
He has no DME, prior VN or SNF.
PCP - Dr Strickland in [place]
[facility]
Spoke with Amy Solomon [facility]; they are unable to accept the patient back unless he if fully ambulatory and not a fall risk. A new referral would need to be submitted.
Phone call to [facility]; left message requesting callback to discuss possible patient referral to [facility] or [facility].
Spoke with [facility]; she will review referral and see if they can accomodate patient on methadone. Patient would need 30 day exception on PASRR signed by MD OR Level II clearance for SNF.
Plan follow up with [facility] and [facility].
--- NOTE | 2023-10-22 16:36 | PTCARENOTE ---
PT 1:1 d.c. AAO oriented, drowsy at times. Tylenol given for fever 101. Vital signs stable.
--- NOTE | 2023-10-22 17:02 | WOUNDNOTE ---
[facility] RN note: t/c Spoke with Pack Mule Worker Michelle who confirmed the [facility] order was faxed to [facility].
[2023-10-22] MEDS: LOVENOX 40 MG SC (17:50)
[2023-10-22] MEDS: ZYPREXA 20 MG PO (21:00)
[2023-10-22] MEDS: DEPAKOTE (12 HR RELEASE) 1000 MG PO (21:00)
[2023-10-22] MEDS: DESYREL 50 MG PO (21:00)
[2023-10-23] VITALS (12 sets, daily range): BP systolic 84–142; BP diastolic 59–82; PULSE 77; O2SAT 92
[2023-10-23] MEDS: STERILE WATER FOR INJECTION 10 ML IV ×2 (04:07→12:09)
[2023-10-23] MEDS: MAXIPIME 2000 MG IV ×2 (04:07→12:08)
[2023-10-23 06:00] LABS: Vancomycin Random 10.9 ug/ml
--- NOTE | 2023-10-23 06:44 | W.PN.HOSP.TC ---
Today's Communication/Plan
-
Continue present course of vancomycin/with Staph aureus in the blood can discontinue cefepime
Will consult infectious disease
Follow-up blood cultures
Continue to monitor pancytopenia
Appreciate psychiatry input and no evidence of suicidal ideation presently and off one-to-one
Will need PT evaluation and has to be fully ambulatory to go back to [facility]
Assessment / Plan
Assessment / Plan
43-year-old male presents from [facility] where he had been admitted 4 days ago for presentation of suicidal ADHD and and now presents to this facility with a apparent sepsis presentation change in mental status that is improved somewhat since
arrival as was basically poorly responsive and now awake and alert although looks to be chronically ill and presenting with a fever of over 103 with an obviously infected right lower extremity from just below the knee involving the entire foot with
a large chronic appearing eschar at the base of his right great toe.� His blood pressure is soft at 92 systolic he is not tachycardic but is hypoxic looks malnourished and he is leukopenic.� Initial CT PE study shows no evidence of pulmonary emboli
or pneumonic infiltrate.� Has been empirically started on vancomycin and cefepime in the ED.� He is on chronic methadone maintenance along with a history of seizure disorder on valproate no recent seizures related by patient.
Initial plain radiologic imaging of the right foot does not show evidence of bone involvement
CT of the chest unremarkable for PE or pneumonic infiltrate
Urine drug screen only positive for methadone/presently negative for benzodiazepines although listed medication on clonazepam 4 times daily
Severe Sepsis secondary to RLE Cellulitis secondary to Non-Healing Wound
Staph aureus bacteremia prior history of MRSA
-Admit to IMU
-Check Foot MRI as concern for possible underlying osteomyelitis/MRI not showing bone involvement
-Check Echo
-Continue vancomycin and cefepime
-Consult Wound Care
-Consult Podiatry appreciated
-History of MRSA/check screening
-Initial blood culture now growing Staph aureus/will get ID input
Acute Kidney Injury
-Continue IVFs
-Recheck labs in AM/creatinine dropped from 1.5-1.3
Anemia/pancytopenia?
-Leukopenia on presentation and initial hemoglobin 13.2>>> now 9.8 after fluids
-Thrombocytopenia/unclear baseline we will have to monitor with DVT prophylaxis and defer further chemical prophylaxis
-HIV negative
Seizure Disorder
-Continue divalproex - Check level
Anxiety/Auditory Hallucinations
-Patient from [facility]
-Continue regimen clonazepam, olanzapine, sertraline and trazodone as prior to admission
Opioid Dependence
-Continue methadone as prior to admission
Tobacco Use Disorder
-Encourage smoking cessation
-Continue nicotine patch
DVT proph: Lovenox
Code Status: Full Code
Anticipated Discharge: > 48 hours
Subjective/Interval History
-
Date of Service: October 23, 2023
Doing okay good urine output and eating well last temperature was on 4 PM yesterday afebrile since this pain referred and redness to the lower extremity. More worried about stuff he left behind at [facility] and told him to talk to case
management in that regard as he may not be able to go back there. Now off one-to-one
Objective Data
-
Vital Signs:
Vital Signs
Temp Pulse Resp BP Pulse Ox
98.1 F 78 12 116/73 95
10/23/23 04:40 10/23/23 06:00 10/23/23 06:00 10/23/23 06:00 10/23/23 06:00
I&O
10/21/23 10/22/23 10/23/23
06:59 06:59 06:59
Intake Total 1040 / 1040 720 / 720
Output Total 2400 / 2400 1400 / 1400
Balance -1360 / -1360 -680 / -680
Review of Systems
-
History Source: Patient
Constitutional: Reports Fatigue
Respiratory: Reports No Symptoms
Cardiac: Reports No Symptoms
Physical Exam
-
General: No Apparent Distress
HEENT: Normocephalic and PERRLA
Respiratory: Clear to Auscultation
Cardiac: Regular Rhythm
GI: Soft and Nontender
Musculoskeletal: Edema, Right Lower Extrem (Deformity and hallux with callus formation less erythema and swelling since admission)
Skin: Rash and IV Access / Catheter Site
Neuro: Awake
Psych: Anxious
Data Reviewed
-
Total Time Spent with Patient (in minutes): 56
Medical Tests (Nuc Med, Echo etc): Report Reviewed by me (No convincing evidence on MRI of osteomyelitis with evidence of soft tissue wound infection only in the medial forefoot)
Labs: Labs Reviewed by me (White count 4.4/initial blood culture growing Staph aureus)
[2023-10-23] MEDS: NSS IV (07:35)
[2023-10-23] MEDS: NICODERM TRANSDERMAL 21 MG TRANSDERM (08:42)
[2023-10-23] MEDS: NEURONTIN 100 MG PO (08:42)
[2023-10-23] MEDS: KLONOPIN 0.5 MG PO ×4 (08:42→21:49)
[2023-10-23] MEDS: ZYPREXA 5 MG PO (08:42)
[2023-10-23] MEDS: DEPAKOTE (12 HR RELEASE) 250 MG PO (08:42)
[2023-10-23] MEDS: PROTONIX 40 MG PO (08:42)
[2023-10-23] MEDS: ZOLOFT 100 MG PO ×2 (08:42→20:51)
[2023-10-23] MEDS: METHADONE 100 MG/10 ML 140 MG PO (08:43)
--- NOTE | 2023-10-23 08:55 | PHA.VAN.FU ---
Vancomycin Assessment / Plan
- Assessment
Renal Function: No New Labs Today
In the past 24 hrs, patient has been: Febrile
Concomitant Antimicrobials: cefepime
- Assessment - Therapeutic Drug Monitoring
Random Level: 10.9 - drawn ~17.5H after previous dose of 1250mg
- Dosing Plan
Dosing by Level: Re-dose today (Vanc 1500mg)
Dosing Comments: increasing dose slightly given decrease in level
- Monitoring Plan
Random Level: 10/24 06
- Follow Up
Pharmacy will continue to follow.
Vancomycin Follow UP
- -
Patient Age: 43
Patient Sex: Male
Vancomycin Day #: 3
Indication: Diabetic Foot
Requesting Provider: Sridevi Hassan
Pertinent Antimicrobial Allergies:
no pertinent antimicrobial allergies
Height / Weight:
Height 6 ft 1 in
Actual Weight 91.2 kg
- Vital Signs / Lab Results
Temp Pulse Resp BP Pulse Ox
98.1 F 73 15 112/66 95
10/23/23 04:40 10/23/23 08:00 10/23/23 08:00 10/23/23 08:00 10/23/23 08:00
Lab Results - Hematology
10/21/23 10/22/23
13:36 04:50
WBC 3.3 L 4.4 L
Lab Results - Chemistry
10/21/23 10/21/23 10/21/23
13:36 13:36 13:36
BUN Cancelled 23 H
Creatinine Cancelled 1.5 H
Estimated Creat Clear Cancelled
Albumin
10/21/23 10/22/23
13:36 04:50
BUN 19
Creatinine 1.3
Estimated Creat Clear 64 81
Albumin Cancelled 2.5 L
10/21/23
13:36
Lactic Acid 1.6
Microbiology Results
10/21/23 13:36 Blood Culture - Preliminary
Blood/Venous Staphylococcus aureus
Gram Stain - Preliminary
10/21/23 20:07 MRSA Screen - Final
Nose No Methicillin Resistant Staphylococcus aureus isolated.
10/21/23 18:01 Blood Culture - Preliminary
Blood/Venous No Growth in 24 hours- Final report to follow
10/21/23 13:36 Influenza Types A & B (JODI) - Final
Nasal Swab Negative for Influenza A & B, NAAT
Negative results must be combined with clinical observations
and patient history.
Nucleic Acid Amplification test (NAAT)performed on the
[employer] platform.
Therapeutic Drug Monitoring
Random Vancomycin 10.9 ug/ml 10/23/23 05:21
--- NOTE | 2023-10-23 10:52 | W.PN.UPDATE ---
Update Note
Progress Note Update
patient seen chart reviewed. patient reports in the hospital he feels more relaxed and it is easier for him to sleep. he does continue w auditory hallucinations although presently not telling him to harm self. he has not been consistent in giving
me hx of meds. now says he was on zyprexa 20 mg for over six months at 20 mg and this should be enough time for him to have responded. discussed switching to a different antipsychotic. he has not taken risperdal in the past. side effects risks vs
benefits discussed. he did not gain weight with zyprexa but weight gain is also a risk with risperdal. will cut back zyprexa eliminating am dose and reduce hs dose to 15 mg start risperdal 1 mg bid. did not change other medications. noted
patient need to be able to ambulate to return to . another issue...his belongings were left at when he came here including his cell phone and his car keys. could cm check on this for him as he is very anxious they will be lost. will follow
[2023-10-23] MEDS: VANCOCIN 300 MG IV (12:09)
[2023-10-23] MEDS: VANCOCIN 300 ML IV (12:09)
--- NOTE | 2023-10-23 14:38 | CON.ID ---
Consultation
-
Date/Time Consultation Requested: 10/23/23 6:55
Date/Time Consultation Performed: 10/23/23 14:39
Requesting Provider: Dr Hearn
Performing Provider: Dr Ventura
Reason for Consultation: s aureus bacteremia
Chief Complaint / Past History
Chief Complaint
sepsis, ams
History of Present Illness
Mr Cabrera is a 43 year old male with a current history of a chronic foot wound previously requiring surgery due to MRSA infection, remote history of IV drug abuse, auditory hallucinations with suicidal ideations, cerebral palsy who presented here
from [facility] for fever and altered mental status. On arrival was poorly responsive, now awake and alert. Reports last IVDU was 2006 - denies sharing needles at that time but reports that most of his friends who were using came down with s
aurues infections within a few months. He always had trouble with the right hip and developed a septic right hip joint in 2017 requiring replacement. He also gives a vague history of 'brain infection' at that time. Reports more recently he's had
s aureus bacteremia that was attributed to the right foot. His right foot is surprisingly benign at this time. There is right LE edema that is notable and intermittent per patient 'worse when my foot acts us.' The foot wound probes 1 mm deep in 4
different locations but definately no probe to bone - no significant erythema, warmth, tenderness or drainage. The skin around the wound is anesthetic but he has feeling in the dorsal and plantar foot. The right hip now is not red, hot or swollen.
He reports increase from his baseline right hip pain but that the pain in the right foot is worse. No other hardwear. No other suspected skin infections. The right knee is 'popping' but not red, hot, swollen or tender.
Since arrival here initially febrile to 103.2 orally, mild hypotension, systolic 92, normal HR with occasional tachycardia, wbc 3.3 on arrival now 4.4, hgb 9.8, plt 61, L shift is noted, eos are not present, INR 1.3, cr initially 1.5 now 1.3, a1c
5.4, K 3.6, co2 18, ammonia <9, UA no pyuria, UDS + methadone only, hiv screen negative, covid ag neg, 10/22 MRI LE: medial forefoot wound without evidence of osteomyelitis, 10/21 foot xray: no evidence of osteo, CTA PE: no pe, blood culturs x2 4
hours apart are both positive - first IDd as s aureus, nasal mrsa swab negative, repeeat blood cultures x2 are in progress, TTE: no vegetations, currently on vancomycin and cefepime. ID is consulted for assistance with management.
Past History
Allergy History:
aripiprazole [From Abilify] Allergy (Verified 10/21/23 13:44)
Rash
Review of Systems
Review of Systems
General: Fever and Chills
All systems: All other systems were reviewed and were negative
Vital Signs
Temp Pulse Resp BP Pulse Ox
97.8 F 79 12 118/79 96
10/23/23 11:55 10/23/23 10:00 10/23/23 10:00 10/23/23 10:00 10/23/23 10:00
Physical Exam
Physical Exam
Constitutional: No Acute Distress
Cardiovascular: Regular Rate and S1/S2; Negative Murmur or Rub
Pulmonary: Clear and Symmetric; Negative Wheezes, Rales or Rhonchi
Gastrointestinal: Soft, Non Tender, Non Distended and Normal Bowel Sounds
Extremities: Other (1+ edeam of the RLE; R hip no erythema, warmth or fluctuance; there is tenderness along the hip posteriorly )
Skin: Warm and Dry; Negative Rash or Jaundice
Wound: Other (right foot superficial wound - probes 1 mm deep at most - no probe to bone, no erythema, warmth, tenderness or draiange)
Lab / Diagnostic Study Results
10/22/23 04:50
10/22/23 04:50
Abs Immat Gran (auto) 0.0 10^3/uL (0-0.05) 10/21/23 13:36
Absolute Neuts (auto) 2.9 10^3/uL (1.4-6.5) 10/21/23 13:36
Absolute Lymphs (auto) 0.3 10^3/uL (1.2-3.4) L 10/21/23 13:36
Absolute Monos (auto) 0.1 10^3/uL (0.1-0.6) 10/21/23 13:36
Absolute Basos (auto) 0.0 10^3/uL (0-0.2) 10/21/23 13:36
Immature Gran % 0.3 % (0-0.5) 10/21/23 13:36
Neutrophils % 88.8 % (42.2-75.2) H 10/21/23 13:36
Lymphocytes % 9.1 % (20.5-51.1) L 10/21/23 13:36
Monocytes % 1.5 % (1.7-9.3) L 10/21/23 13:36
Eosinophils % 0.0 % (0-6) 10/21/23 13:36
Basophils % 0.3 % (0-2) 10/21/23 13:36
PT 16.4 Sec (11.4-14.6) H 10/21/23 14:03
INR 1.34 10/21/23 14:03
Lactic Acid 1.6 mmol/L (0.7-2.0) 10/21/23 13:36
Microbiology Results
Micro:
10/23/23 09:43 Blood Culture - Pending
Blood/Venous
10/21/23 18:01 Blood Culture - Preliminary
Blood/Venous Positive culture in progress
Gram Stain - Preliminary
10/21/23 13:36 Blood Culture - Preliminary
Blood/Venous Staphylococcus aureus
Gram Stain - Preliminary
10/21/23 20:07 MRSA Screen - Final
Nose No Methicillin Resistant Staphylococcus aureus isolated.
10/23/23 08:29 Blood Culture - Pending
Blood/Venous
10/21/23 13:36 Influenza Types A & B (JODI) - Final
Nasal Swab Negative for Influenza A & B, NAAT
Negative results must be combined with clinical observations
and patient history.
Nucleic Acid Amplification test (NAAT)performed on the
[employer] NOW platform.
Assessment / Plan
S aureus bacteremia
Foot wound - not diabetic
H/o S aureus bacteremia - R hip septic joint s/p replacement
PATRICIA, Pancytopnia
Seizure Disorder - on divalproex
Remote history of IVDU
- repeat blood cultures x2 in progress and daily until persistently clear
- TTE: no vegetations - if bacteremia persistent then would proceed to MELISSA
- MRI foot not consistent with osteomyelitis
- Xray of the R hip and pelvis to start
- appreciate podiatry input
- continue vancomycin, add cefazolin
- pending course might be a candidate for a long acting lipoglycopeptide, alternatively a course of IV therapy if it is felt that patient would be safe with a line
- follow clinically
--- NOTE | 2023-10-23 16:00 | CM ---
Patient from [facility] with Hx Cerebral Palsy with Dx Severe Sepsis secondary to RLE Cellulitis secondary to Non-Healing Wound, PATRICIA, Anemia/pancytopenia? Room air. Receiving methadone, IV Abx. Psych Consult. Seen
by wound care nurse.
Spoke with Jc [facility] Manager (ph [phone]); request that facility deliver patient's belongings including his wallet, ID and cell phone. He will have a automobile drivers drop off the belongings with security around 6pm and ask that they bring
them up to patient's room.
Met with patient and told him [facility] will bring him his belongings and he was relieved about that. He has an ortho shoe given to him today. He feels he will be able to ambulate when PT works with him again.
Spoke with Saira with [facility]; second request to please see patient with Hx substance abuse re; referral to inpatient psych facility. Will need facility that can accomodate medical needs - most likely patient will be ambulatory with RW and need
wound care. She will ask Liborio to see him this evening. Probable referral to [facility].
Plan follow patient's progress with PT.
Plan follow up with [facility].
Plan Inpatient Psych/Substance Abuse Facility.
--- NOTE | 2023-10-23 16:11 | W.PN.POD ---
Today's Communication
Today's Communication
Patient stable per podiatry
Assessment / Plan
-
A/P : resolved Rt lower leg cellultis.
Rt plantar large callus lesion - debrided at bedside
Plan ; Will cont local wound care with topical Bactroban ointment to the Rt submet 1st ulceration
DH pressure relief shoe and wt bear as tolerated.
Rt foot xrays no osteomyelitis
Rt foot MRI with no osteomyelitis or no fluid collection /abscess
No surgical intervention by podiatry
Subjective
Chief Complaint
Rt lower leg cellultis
Subjective
PT seen at bedside, doing well, no fever, chills. Resolved redness to Rt lower leg
Objective
Temp Pulse Resp BP Pulse Ox
97.8 F 68 8 108/76 96
10/23/23 11:55 10/23/23 14:00 10/23/23 14:00 10/23/23 14:00 10/23/23 14:00
10/22/23 04:50
10/22/23 04:50
Vital Signs and Lab results were reviewed.
Rt foot resolved erythema and resolved edema.
B/L palpable pedal pulses
Rt lower leg normal skin temp to touch
Rt submet 1st thick callus lesion with an area of small blister around the callus, no drainage , no open ulceration noted, no signs of any crepitus felt. no signs of any deep abscess felt.
--- NOTE | 2023-10-23 16:43 | PTCARENOTE ---
Patient OOB to chair with assist x1, right Law[place] shoe on. Patient has no c/o pain. pleasant and compliant.
[2023-10-23] MEDS: LOVENOX 40 MG SC (17:30)
[2023-10-23] MEDS: RISPERDAL 1 MG PO (20:51)
[2023-10-23] MEDS: ANCEF 10 IV (20:51)
[2023-10-23] MEDS: DEPAKOTE (12 HR RELEASE) 1000 MG PO (21:48)
[2023-10-23] MEDS: DESYREL 50 MG PO (21:48)
[2023-10-23] MEDS: ZYPREXA 15 MG PO (21:49)
--- NOTE | 2023-10-23 22:33 | PTCARENOTE ---
Patient received all belongings from security office. This nurse removed 3 packs of cigarettes, driver utility worker and medication bottles from room. Patient requested he keep 2 empty methadone bottles at his bedside since the prescription information is on the
bottle. Patient with multiple brown paper bags containing clothes/electronics/personal belongings/father's ashes/wallet/drivers licence/glasses/cell phones and chargers.
[2023-10-24] VITALS (10 sets, daily range): BP systolic 103–133; BP diastolic 65–91; PULSE 76; O2SAT 96
[2023-10-24] MEDS: ANCEF 10 IV ×3 (05:09→21:55)
[2023-10-24 05:26] LABS: Hematocrit 28.5 % (39.0-52.0); Hemoglobin 10.1 g/dL (13.0-18.0); Mean Corp Hgb Conc. 35.4 g/dL (33.0-37.0); Mean Corpuscular Hgb 29.8 pg (27.0-31.0); Mean Corpuscular Volume 84.1 fL (80.0-94.0); Red Blood Cell Count 3.39 10^6/uL (4.70-6.10); Red Cell Dist. Width 13.8 % (11.5-14.5); White Blood Cell Count 2.6 10^3/uL (4.8-10.8)
[2023-10-24 05:38] LABS: Blood Urea Nitrogen 12 mg/dl (9-20); Calcium 8.1 mg/dl (8.4-10.2); Carbon Dioxide 26 mmol/L (22-30); Chloride 102 mmol/L (98-107); Estimated Creatinine Clearance 117 ml/min; Glucose 110 mg/dl (70-99); Potassium 3.5 mmol/L (3.5-5.1); Sodium 137 mmol/L (135-145); eGFR > 60.00
[2023-10-24 05:50] LABS: Vancomycin Random 10.9 ug/ml
[2023-10-24 05:51] LABS: Mean Platelet Volume 11.6 fL (7.4-10.4); Platelet Count 52 10^3/uL (130-400)
--- NOTE | 2023-10-24 07:11 | W.PN.HOSP.TC ---
Today's Communication/Plan
-
Continue cefazolin
Continue follow-up blood cultures still remaining positive may need MELISSA
Continue to monitor leukopenia and thrombocytopenia
Monitor weightbearing status and assess PT performance as has to be fully ambulatory for [facility] to take back
Psych also following off one-to-one
Assessment / Plan
Assessment / Plan
43-year-old male presents from [facility] where he had been admitted 4 days ago for presentation of suicidal ADHD and and now presents to this facility with a apparent sepsis presentation change in mental status that is improved somewhat since
arrival as was basically poorly responsive and now awake and alert although looks to be chronically ill and presenting with a fever of over 103 with an obviously infected right lower extremity from just below the knee involving the entire foot with
a large chronic appearing eschar at the base of his right great toe.� His blood pressure is soft at 92 systolic he is not tachycardic but is hypoxic looks malnourished and he is leukopenic.� Initial CT PE study shows no evidence of pulmonary emboli
or pneumonic infiltrate.� Has been empirically started on vancomycin and cefepime in the ED.� He is on chronic methadone maintenance along with a history of seizure disorder on valproate no recent seizures related by patient.
Initial plain radiologic imaging of the right foot does not show evidence of bone involvement
CT of the chest unremarkable for PE or pneumonic infiltrate
Urine drug screen only positive for methadone/presently negative for benzodiazepines although listed medication on clonazepam 4 times daily
Severe Sepsis secondary to RLE Cellulitis secondary to Non-Healing Wound
Staph aureus bacteremia prior history of MRSA
-Admit to IMU>> MedSurg
-Check Foot MRI as concern for possible underlying osteomyelitis/MRI not showing bone involvement
-Check Echo TTE no vegetation seen
-Continue vancomycin and cefepime
-Consult Wound Care appreciated
-Consult Podiatry appreciated
-History of MRSA/MRSA screen here negative/vancomycin DC'd
-Initial blood culture now growing Staph aureus/ ID input changed to cefazolin
Acute Kidney Injury
-Continue IVFs
-Recheck labs in AM/creatinine dropped from 1.5-1.3>> now 1.0
Anemia/pancytopenia?
-Leukopenia on presentation and initial hemoglobin 13.2>>> now 9.8 >> 10.1
-Thrombocytopenia/unclear baseline we will have to monitor with DVT prophylaxis and defer further chemical prophylaxis
-HIV negative
Seizure Disorder
-Continue divalproex - Check level
Anxiety/Auditory Hallucinations
-Patient from [facility]
-Continue regimen clonazepam, olanzapine, sertraline and trazodone as prior to admission
Opioid Dependence
-Continue methadone as prior to admission
Tobacco Use Disorder
-Encourage smoking cessation
-Continue nicotine patch
DVT proph: Lovenox
Code Status: Full Code
Anticipated Discharge: 24 - 48 hours
Subjective/Interval History
-
Date of Service: October 24, 2023
No new symptoms or complaints
Objective Data
-
Labs:
Laboratory Results
10/24/23
04:58
WBC 2.6 L
Hgb 10.1 L
Hct 28.5 L
Plt Count 52 L
Sodium 137
Potassium 3.5
Chloride 102
Carbon Dioxide 26
BUN 12
Creatinine 0.9
Glucose 110 H
Calcium 8.1 L
Vital Signs:
Vital Signs
Temp Pulse Resp BP Pulse Ox
98.1 F 63 13 103/69 95
10/24/23 03:04 10/24/23 04:00 10/24/23 04:00 10/24/23 04:00 10/24/23 04:00
I&O
10/23/23 10/24/23 10/25/23
06:59 06:59 06:59
Intake Total 720 / 720 240 / 240
Output Total 1400 / 1400 2650 / 2650
Balance -680 / -680 -2410 / -2410
Review of Systems
-
All other systems: Not reviewed unless documented
Physical Exam
-
General: Appears Chronically Ill
HEENT: Normocephalic
Respiratory: Clear to Auscultation
Cardiac: Regular Rhythm
GI: Soft and Nontender
Musculoskeletal: Edema, Right Upper Extrem
Neuro: Awake, Alert, Oriented, AO x 3 and No Motor Deficits
Psych: Negative Suicidal
--- NOTE | 2023-10-24 07:56 | PHA.VAN.FU ---
Vancomycin Assessment / Plan
- Assessment
Renal Function: SCR Decreasing
In the past 24 hrs, patient has been: Afebrile
Concomitant Antimicrobials: cefazolin
- Assessment - Therapeutic Drug Monitoring
Random Level: 10.9 - drawn ~17H after previous dose of 1500mg
- Dosing Plan
Adjust Regimen to: Vanc 1250mg Q12H - give 1000mg now then start regimen at 1800
New Regimen Predicts: AUC (416), Peak (27.9), Trough (10)
Since patient maintaining level > 12H after previous dose of 1500mg, will start Q12H regimen at slightly lower dosing
Continue to follow renal function
- Monitoring Plan
No level(s) ordered at this time: consider levels in next few days
- Follow Up
Pharmacy will continue to follow.
Vancomycin Follow UP
- -
Patient Age: 43
Patient Sex: Male
Vancomycin Day #: 4
Indication: Bacteremia
Requesting Provider: Sridevi Hassan
Pertinent Antimicrobial Allergies:
no pertinent antimicrobial allergies
Height / Weight:
Height 6 ft 1 in
Actual Weight 91.2 kg
- Vital Signs / Lab Results
Temp Pulse Resp BP Pulse Ox
98.1 F 63 13 103/69 95
10/24/23 03:04 10/24/23 04:00 10/24/23 04:00 10/24/23 04:00 10/24/23 04:00
Lab Results - Hematology
10/21/23 10/22/23 10/24/23
13:36 04:50 04:58
WBC 3.3 L 4.4 L 2.6 L
Lab Results - Chemistry
10/21/23 10/21/23 10/21/23
13:36 13:36 13:36
BUN Cancelled 23 H
Creatinine Cancelled 1.5 H
Estimated Creat Clear Cancelled
Albumin
10/21/23 10/22/23 10/24/23
13:36 04:50 04:58
BUN 19 12
Creatinine 1.3 0.9
Estimated Creat Clear 64 81 117
Albumin Cancelled 2.5 L
10/21/23
13:36
Lactic Acid 1.6
Microbiology Results
10/21/23 13:36 Blood Culture - Preliminary
Blood/Venous Staphylococcus aureus
Gram Stain - Preliminary
10/21/23 18:01 Blood Culture - Preliminary
Blood/Venous Positive culture in progress
Gram Stain - Preliminary
10/21/23 20:07 MRSA Screen - Final
Nose No Methicillin Resistant Staphylococcus aureus isolated.
Therapeutic Drug Monitoring
Random Vancomycin 10.9 ug/ml 10/24/23 04:58
[2023-10-24] MEDS: DEPAKOTE (12 HR RELEASE) 250 MG PO (08:11)
[2023-10-24] MEDS: PROTONIX 40 MG PO (08:12)
[2023-10-24] MEDS: ZOLOFT 100 MG PO ×2 (08:12→20:38)
[2023-10-24] MEDS: KLONOPIN 0.5 MG PO ×4 (08:12→21:29)
[2023-10-24] MEDS: NICODERM TRANSDERMAL 21 MG TRANSDERM (08:12)
[2023-10-24] MEDS: NEURONTIN 100 MG PO (08:12)
[2023-10-24] MEDS: METHADONE 100 MG/10 ML 140 MG PO (08:12)
[2023-10-24] MEDS: RISPERDAL 1 MG PO ×2 (08:12→20:38)
[2023-10-24] MEDS: BACTROBAN 2% OINTMENT 1 APPLIC TOPICAL (08:15)
[2023-10-24] MEDS: VANCOCIN 200 IV (09:30)
--- NOTE | 2023-10-24 10:06 | W.PN.UPDATE ---
Update Note
Progress Note Update
patient seen chart reviewed. spoke with nursing. the patient is 'tired' presumably due to illness, immobility, affective sx. he is not currently suicidal. he does continue w hallucinations not command type. the last time he was hallucination free
was about one year ago. he had been taking zyprexa for about six months without resolution. the patient is now on risperdal started this week. the zyprexa will be tapered as the risperdal dosage is increased. he is not complaining of any side
effects. noted that has been asking for b cares consult. patient has actually been sober since 2006 and does not at this point need rehab. a placement closer to his home in [place] has been suggested [facility]'
forwarded this info to his case managers. on a + note [facility] delivered his belongings and he now has his phone and keys. psych will check in w him on weekend.
--- NOTE | 2023-10-24 11:11 | PTCARENOTE ---
Patient AAOx3, flat affect. Reports still hearing voices but no suicidal ideations. Making needs known. VSS. Baseline +LE neuropathy. No pain. +pulses. Wound care performed. Continuing to monitor patient.
--- NOTE | 2023-10-24 11:13 | W.PN.ID1 ---
Date of Service
Date of Service: October 24, 2023
Today's Communication
follow repeat blood cultures
- continue cefazolin stop vanc
- pending course might be a candidate for a long acting lipoglycopeptide, alternatively a course of IV therapy if it is felt that patient would be safe with a line or unable to arrange placement
Assessment / Plan
S aureus bacteremia
Cellulitis -resolved
Foot wound - not diabetic
H/o S aureus bacteremia - R hip septic joint s/p replacement
PATRICIA, Pancytopnia
Seizure Disorder - on divalproex
Remote history of IVDU
- 10/22 photos did show more erythematous foot - under wound care tab; most likely source of bacteremia
- repeat blood cultures x2 in progress - continue to follow
- TTE: no vegetations - if bacteremia persistent then would proceed to MELISSA
- MRI foot not consistent with osteomyelitis
- Xray of the R hip and pelvis - no evidence of osteomyelitis,
- continue cefazolin stop vanc
- pending course might be a candidate for a long acting lipoglycopeptide, alternatively a course of IV therapy if it is felt that patient would be safe with a line or unable to arrange placement
- follow clinically
Chief Complaint
-: Fever and Bacteremia
Subjective / Review of Systems
No further fevers
bp stable
isolate MSSA
xry of the hip without evidence of chronic osteo
echo without veg
Vital Signs / Physical Exam
Vital Signs
Vital Signs
Temp Pulse Resp BP Pulse Ox
98.0 F 57 13 118/70 95
10/24/23 07:20 10/24/23 11:08 10/24/23 11:08 10/24/23 11:08 10/24/23 11:08
Physical Exam
Constitutional: No Acute Distress
Cardiovascular: Regular Rate and S1/S2; Negative Murmur or Rub
Pulmonary: Clear and Symmetric; Negative Wheezes or Rales
Gastrointestinal: Soft, Non Tender, Non Distended and Normal Bowel Sounds
Skin: Warm and Dry; Negative Rash or Jaundice
Wound: Other (dressing take down deferred)
Objective Data
Lab Data
Lab Results
10/24/23 04:58
10/24/23 04:58
PT 16.4 Sec (11.4-14.6) H 10/21/23 14:03
INR 1.34 10/21/23 14:03
APTT 30.2 Sec (23.4-35.0) 10/21/23 14:03
Estimated Creat Clear 117 ml/min 10/24/23 04:58
Lactic Acid 1.6 mmol/L (0.7-2.0) 10/21/23 13:36
Total Bilirubin 0.5 mg/dl (0.2-1.3) 10/22/23 04:50
AST 28 U/L (17-59) 10/22/23 04:50
ALT < 10 U/L (0-50) 10/22/23 04:50
Alkaline Phosphatase 52 U/L (38-126) 10/22/23 04:50
Most recent labs reviewed.
Micro Results:
10/23/23 09:43 Blood Culture - Preliminary
Blood/Venous No Growth in 24 hours- Final report to follow
10/21/23 18:01 Blood Culture - Preliminary
Blood/Venous S aureus-Methicillin Sensitive
Gram Stain - Preliminary
10/21/23 13:36 Blood Culture - Preliminary
Blood/Venous S aureus-Methicillin Sensitive
Gram Stain - Preliminary
10/23/23 08:29 Blood Culture - Preliminary
Blood/Venous No Growth in 24 hours- Final report to follow
10/24/23 04:58 Blood Culture - Pending
Blood/Venous
10/21/23 20:07 MRSA Screen - Final
Nose No Methicillin Resistant Staphylococcus aureus isolated.
10/21/23 13:36 Influenza Types A & B (JODI) - Final
Nasal Swab Negative for Influenza A & B, NAAT
Negative results must be combined with clinical observations
and patient history.
Nucleic Acid Amplification test (NAAT)performed on the
[employer] platform.
Care Review
Plan reviewed with: Other Provider (clinical pharmacist - lipoglycopeptide availability)
--- NOTE | 2023-10-24 11:43 | CM ---
Addendum entered by Le Rai RN 10/24/23 14:56:
Message from Dr Ventura; patient will need cefazolin 2gm iv q8 hrs through 11/02.
Spoke with [facility] (ph [phone], fax [phone]) will not consider a referral on this patient until he is independent in all ADLs without an assistive device, off IV antibiotics, and they a request 201 form.
Jose De Jesus from PT confirmed he is not going to be independent without a device. Requested updated therapy notes.
Spoke with [facility] (ph [phone], fax [phone]); they can accept the referral to their Medical Recovery Unit for this patient who is ambulatory with min assist & RW and who is on Abx. They do not want a 201
form. Referral sent via Active Fax.
Plan follow up with [facility] re; acceptance.
Addendum entered by Le Rai RN 10/24/23 12:57:
Spoke with patient and relayed that [facility] is making referrals to [facility] as his preferred facility, and other behavioral inpatient units, and patient agreed.
Original Note:
Patient from [facility] with Hx Cerebral Palsy with Dx Severe Sepsis secondary to RLE Cellulitis secondary to Non-Healing Wound, PATRICIA, Anemia/pancytopenia? Room air. Receiving methadone, IV Abx. Psych Consult. Per
nurses note 11/21: Reports still hearing voices but no suicidal ideations. Seen by wound care nurse- issued Chris ibarra. PT Eval 10/23: transfers requires supervision, Patient ambulated 5' then 8' with SPC and min A x 1, recommend inpt psych v SNF.
Spoke with [facility] Chávez; Liborio saw the patient yesterday evening and he agreed to Inpatient Psych referrals. Saira was made aware that Dr Zamudio requests referral to [facility] in [place]. Dr Zamudio stating patient has
been sober for years and does not need rehab ([facility] aware patient on methadone). She will also try [facility] and [facility] as they take patients with medical needs. Clinical info for referral sent via Active Fax to her fax [phone].
[facility] apparently delivered patient's belongings to him yesterday as requested.
Plan follow up with [facility] re; Inpatient Psych placement possibly at [facility].
--- NOTE | 2023-10-24 15:13 | CM ---
Patient from [facility] with Hx Cerebral Palsy with Dx Severe Sepsis secondary to RLE Cellulitis secondary to Non-Healing Wound, PATRICIA, Anemia/pancytopenia? Room air. Receiving methadone, IV Abx. Psych Consult. Per
nurses note 11/21: Reports still hearing voices but no suicidal ideations. Seen by wound care nurse- issued Chris ibarra. PT Eval 10/23: transfers requires supervision, Patient ambulated 5' then 8' with SPC and min A x 1, recommend inpt psych v SNF.
Spoke with JORY Chávez; Liborio saw the patient yesterday evening and he agreed to Inpatient Psych referrals. Saira was made aware that Dr Zamudio requests referral to [facility] in [place]. Dr Zamudio stating patient has
been sober for years and does not need rehab (JORY aware patient on methadone).
[facility] apparently delivered patient's belongings to him yesterday as requested.
Message from Dr Ventura; patient will need cefazolin 2gm iv q8 hrs through 11/02. provided script.
Spoke with [facility] (ph [phone], fax [phone]) will not consider a referral on this patient until he is independent in all ADLs without an assistive device, off IV antibiotics, and they a request 201 form.
Jose De Jesus from PT confirmed he is not going to be independent without a device. Requested updated therapy notes.
Phone calls x2 to [facility] Admissions- finally answered by Nabil at answering service who took message to callback about referral. Confirmed fax # [phone]- referral sent via Active Fax.
Plan follow up with [facility] re; Inpatient Psych placement.
[2023-10-24] MEDS: LOVENOX 40 MG SC (17:20)
[2023-10-24] MEDS: TYLENOL 650 MG PO (17:20)
[2023-10-24] MEDS: ZYPREXA 15 MG PO (21:29)
[2023-10-24] MEDS: DESYREL 50 MG PO (21:29)
[2023-10-24] MEDS: DEPAKOTE (12 HR RELEASE) 1000 MG PO (21:29)
--- NOTE | 2023-10-24 21:37 | PTCARENOTE ---
Assumed care of Pt from day RN. Pt AAOX3, slow, quiet speech. Per Pt he has not had any audible hallucination all day. Pt vitals stable at this time. Assessment care and vitals as charted.
[2023-10-25] MEDS: ANCEF 10 IV ×3 (04:09→21:50)
[2023-10-25 05:16] LABS: Hemoglobin 10.7 g/dL (13.0-18.0); Mean Corp Hgb Conc. 34.5 g/dL (33.0-37.0); Mean Corpuscular Hgb 29.4 pg (27.0-31.0); Mean Corpuscular Volume 85.2 fL (80.0-94.0); Mean Platelet Volume 11.6 fL (7.4-10.4); Platelet Count 60 10^3/uL (130-400); Red Blood Cell Count 3.64 10^6/uL (4.70-6.10); Red Cell Dist. Width 13.9 % (11.5-14.5); White Blood Cell Count 2.6 10^3/uL (4.8-10.8)
--- NOTE | 2023-10-25 07:09 | W.PN.HOSP.TC ---
Today's Communication/Plan
-
Continue present management IV cefazolin
Continue to monitor PT progress to hopefully get him off ambulatory device
[place] will be finding appropriate psych facility will need IV antibiotic therapy through october further management will depend on ID recommendations at that point
Assessment / Plan
Assessment / Plan
43-year-old male presents from [facility] where he had been admitted 4 days ago for presentation of suicidal ADHD and and now presents to this facility with a apparent sepsis presentation change in mental status that is improved somewhat since
arrival as was basically poorly responsive and now awake and alert although looks to be chronically ill and presenting with a fever of over 103 with an obviously infected right lower extremity from just below the knee involving the entire foot with
a large chronic appearing eschar at the base of his right great toe.� His blood pressure is soft at 92 systolic he is not tachycardic but is hypoxic looks malnourished and he is leukopenic.� Initial CT PE study shows no evidence of pulmonary emboli
or pneumonic infiltrate.� Has been empirically started on vancomycin and cefepime in the ED.� He is on chronic methadone maintenance along with a history of seizure disorder on valproate no recent seizures related by patient.
Initial plain radiologic imaging of the right foot does not show evidence of bone involvement
CT of the chest unremarkable for PE or pneumonic infiltrate
Urine drug screen only positive for methadone/presently negative for benzodiazepines although listed medication on clonazepam 4 times daily
Severe Sepsis secondary to RLE Cellulitis secondary to Non-Healing Wound
Staph aureus bacteremia prior history of MRSA/presently with MSSA and blood
-Admit to IMU>> MedSurg
-Check Foot MRI as concern for possible underlying osteomyelitis/MRI not showing bone involvement
-Check Echo TTE no vegetation seen
-Continue cefazolin/MSSA bacteremia
-Consult Wound Care appreciated
-Consult Podiatry appreciated
-History of MRSA/MRSA screen here negative/vancomycin DC'd
-ID has narrowed to cefazolin
-Initial blood culture positive for MSSA all subsequent cultures thus far no growth plan is for antibiotic therapy through November 02
Acute Kidney Injury
-Continue IVFs
-Recheck labs in AM/creatinine dropped from 1.5-1.3>> now 1.0
Anemia/pancytopenia?
-Leukopenia on presentation and initial hemoglobin 13.2>>> now 9.8 >> 10.7
-Thrombocytopenia/unclear baseline we will have to monitor with DVT prophylaxis and defer further chemical prophylaxis
-HIV negative
Seizure Disorder
-Continue divalproex - Check level
Anxiety/Auditory Hallucinations
-Patient from [facility]
-Continue regimen clonazepam, olanzapine, sertraline and trazodone as prior to admission
-Psychiatry following/issue at discharge will be finding a appropriate psych facility and whether by then still require IV antibiotic
Opioid Dependence
-Continue methadone as prior to admission
Tobacco Use Disorder
-Encourage smoking cessation
-Continue nicotine patch
DVT proph: Lovenox
Code Status: Full Code
Anticipated Discharge: 24 - 48 hours
Subjective/Interval History
-
Date of Service: October 25, 2023
Doing okay still using a 4 point cane and PT he received his items from [facility] which relates some of his anxiety
Objective Data
-
Labs:
Laboratory Results
10/25/23
04:51
WBC 2.6 L
Hgb 10.7 L
Hct 31.0 L
Plt Count 60 L
Vital Signs:
Vital Signs
Temp Pulse Resp BP Pulse Ox
97.7 F 89 18 130/78 98
10/24/23 23:01 10/24/23 23:01 10/24/23 23:01 10/24/23 23:01 10/24/23 23:01
I&O
10/24/23 10/25/23 10/26/23
06:59 06:59 06:59
Intake Total 240 / 240 490 / 490
Output Total 2650 / 2650 1830 / 1830
Balance -2410 / -2410 -1340 / -1340
Review of Systems
-
History Source: Patient
Constitutional: Reports Weakness; Denies Night Sweats or Chills
Physical Exam
-
General: Appears Chronically Ill
Respiratory: Clear to Auscultation
Cardiac: Regular Rhythm
GI: Soft
Musculoskeletal: Edema, Right Lower Extrem (Swelling and less erythema)
Neuro: Awake, Alert and Oriented
Psych: Depressed
Data Reviewed
-
Total Time Spent with Patient (in minutes): 56
Labs: Labs Reviewed by me (White count 2.6 hemoglobin 10.7)
[2023-10-25] MEDS: METHADONE 100 MG/10 ML 140 MG PO (09:30)
[2023-10-25] MEDS: NEURONTIN 100 MG PO (09:32)
[2023-10-25] MEDS: NICODERM TRANSDERMAL 21 MG TRANSDERM (09:32)
[2023-10-25] MEDS: RISPERDAL 1 MG PO ×2 (09:32→22:09)
[2023-10-25] MEDS: BACTROBAN 2% OINTMENT 1 APPLIC TOPICAL (09:32)
[2023-10-25] MEDS: ZOLOFT 100 MG PO ×2 (09:32→20:22)
[2023-10-25] MEDS: PROTONIX 40 MG PO (09:32)
[2023-10-25] MEDS: DEPAKOTE (12 HR RELEASE) 250 MG PO (09:32)
[2023-10-25] MEDS: KLONOPIN 0.5 MG PO ×4 (09:32→22:09)
[2023-10-25 09:40] VITALS: BP 113/75
--- NOTE | 2023-10-25 09:45 | W.PN.ID1 ---
Date of Service
Date of Service: October 25, 2023
Today's Communication
- continue cefazolin - tentatively x 2 weeks through 11/02, alternatively pending dispo might be a candidate for a long acting lipoglycopeptide. I will remain in contact with the team in planning and did have extensive discussion with the team
regarding dispo and potential antibiotics yesterday. A script for cefazolin was provided to case management 10/24 to assist with planning.
Assessment / Plan
S aureus bacteremia
Cellulitis -resolved
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
H/o S aureus bacteremia - R hip septic joint s/p replacement
PATRICIA, Pancytopenia
Seizure Disorder - on divalproex
Remote history of IVDU
- repeat blood cultures x2 in progress - continue to follow
- continue cefazolin - tentatively x 2 weeks through 11/02, alternatively pending dispo might be a candidate for a long acting lipoglycopeptide. I will remain in contact with the team in planning and did have extensive discussion with the team
regarding dispo and potential antibiotics yesterday. A script for cefazolin was provided to case management 10/24 to assist with planning.
- follow clinically
Chief Complaint
-: Fever and Bacteremia
Subjective / Review of Systems
afebrile
bp stable
stable leukopenia
cr stable
repeat blood cultures no growth to date
less pain in the foot - able to bear weight - approaching his baseline
Vital Signs / Physical Exam
Vital Signs
Vital Signs
Temp Pulse Resp BP Pulse Ox
97.5 F 60 20 113/75 98
10/25/23 07:20 10/25/23 09:40 10/25/23 09:40 10/25/23 09:40 10/25/23 09:40
Physical Exam
Constitutional: No Acute Distress
Cardiovascular: Regular Rate and S1/S2; Negative Murmur or Rub
Pulmonary: Clear and Symmetric; Negative Wheezes or Rales
Gastrointestinal: Soft, Non Tender, Non Distended and Normal Bowel Sounds
Skin: Warm and Dry; Negative Rash or Jaundice
Wound: Other (dressing clean/dry/intact)
Objective Data
Lab Data
Lab Results
10/25/23 04:51
10/24/23 04:58
PT 16.4 Sec (11.4-14.6) H 10/21/23 14:03
INR 1.34 10/21/23 14:03
APTT 30.2 Sec (23.4-35.0) 10/21/23 14:03
Estimated Creat Clear 117 ml/min 10/24/23 04:58
Lactic Acid 1.6 mmol/L (0.7-2.0) 10/21/23 13:36
Total Bilirubin 0.5 mg/dl (0.2-1.3) 10/22/23 04:50
AST 28 U/L (17-59) 10/22/23 04:50
ALT < 10 U/L (0-50) 10/22/23 04:50
Alkaline Phosphatase 52 U/L (38-126) 10/22/23 04:50
Most recent labs reviewed.
Micro Results:
10/23/23 08:29 Blood Culture - Preliminary
Blood/Venous No Growth in 48 hours- Final report to follow
10/24/23 04:58 Blood Culture - Preliminary
Blood/Venous No Growth in 24 hours- Final report to follow
10/25/23 04:51 Blood Culture - Pending
Blood/Venous
10/23/23 09:43 Blood Culture - Preliminary
Blood/Venous No Growth in 24 hours- Final report to follow
10/21/23 18:01 Blood Culture - Preliminary
Blood/Venous S aureus-Methicillin Sensitive
Gram Stain - Preliminary
10/21/23 13:36 Blood Culture - Preliminary
Blood/Venous S aureus-Methicillin Sensitive
Gram Stain - Preliminary
10/21/23 20:07 MRSA Screen - Final
Nose No Methicillin Resistant Staphylococcus aureus isolated.
10/21/23 13:36 Influenza Types A & B (JODI) - Final
Nasal Swab Negative for Influenza A & B, NAAT
Negative results must be combined with clinical observations
and patient history.
Nucleic Acid Amplification test (NAAT)performed on the
[employer] platform.
Care Review
Plan reviewed with: Physician (Dr Hearn - dispo)
--- NOTE | 2023-10-25 09:58 | PTCARENOTE ---
Patient AAOx3, very flat, drowsy. Reports feeling tired. Reports still having auditory hallucinations occasionally but no suicidal ideations or harmful thoughts or commands from voices. +1 RLE edema. No pain. VSS. Poor appetite. Right foot wound
CDI. Waiting for M/S bed. Continuing to closely monitor patient.
--- NOTE | 2023-10-25 11:27 | W.PN.UPDATE ---
Update Note
Progress Note Update
Pt seen, chart reviewed, case discussed with nursing staff. Pt lying in bed, very groggy/sedated. Able to wake and answer questions, but remains drowsy. Pt denies active SI or AH today. He started Risperidone 1 mg BID 10/23, which is likely
adding to sedating effect of long-term combination of Methadone maint tx and Klonopin 0.5 mg QID. Unable to fully assess mental status due to sedated state this morning. No overt signs of psychosis/halluc.
Imp: MDD with psychotic features (reported hallucinations)
Opioid Dependence, on Methadone Maintenance tx
Rec: Continue to taper down Zyprexa, monitor response to trial of Risperidone- consider changing to HS only
will follow
[2023-10-25] MEDS: LOVENOX 40 MG SC (18:06)
--- NOTE | 2023-10-25 18:35 | PTCARENOTE ---
Patient mentioned another behavioral health facility closer to his home that he would like us to look in to for him going to after discharge - it's called [facility] in [place]. Message sent to FABIANA Melendez. He also had questions about what
type of therapy our psychiatrists are recommending for him to go to after discharge. Message sent to Dr Vidal to discuss with patient tomorrow.
[2023-10-25 20:18] VITALS: BP 109/65
--- NOTE | 2023-10-25 20:35 | PTCARENOTE ---
Addendum entered by Viviana Plata RN 10/26/23 07:11:
spell check* Auditory Hallucinations
Original Note:
Assumed care of Pt from Day RN, Pt AAOX3. Pt stated he had a few audible hallucinations today that were derogatory, non with thought of harming self or others. Emotional support given. Pt has no complaints at this time. Assessment care and vitals as
charted.
[2023-10-25] MEDS: DESYREL 50 MG PO (22:08)
[2023-10-25] MEDS: ZYPREXA 10 MG PO (22:09)
[2023-10-25] MEDS: DEPAKOTE (12 HR RELEASE) 1000 MG PO (22:09)
[2023-10-26] MEDS: ANCEF 10 IV ×3 (03:35→19:57)
[2023-10-26 06:02] LABS: Hematocrit 31.2 % (39.0-52.0); Hemoglobin 10.7 g/dL (13.0-18.0); Mean Corp Hgb Conc. 34.3 g/dL (33.0-37.0); Mean Corpuscular Hgb 29.6 pg (27.0-31.0); Mean Corpuscular Volume 86.4 fL (80.0-94.0); Mean Platelet Volume 11.5 fL (7.4-10.4); Platelet Count 77 10^3/uL (130-400); Red Blood Cell Count 3.61 10^6/uL (4.70-6.10); Red Cell Dist. Width 13.6 % (11.5-14.5); White Blood Cell Count 3.4 10^3/uL (4.8-10.8)
[2023-10-26 06:07] LABS: Blood Urea Nitrogen 12 mg/dl (9-20); Calcium 8.1 mg/dl (8.4-10.2); Carbon Dioxide 29 mmol/L (22-30); Chloride 100 mmol/L (98-107); Estimated Creatinine Clearance > 125 ml/min; Glucose 103 mg/dl (70-99); Potassium 3.9 mmol/L (3.5-5.1); Sodium 138 mmol/L (135-145); eGFR > 60.00
--- NOTE | 2023-10-26 07:00 | W.PN.HOSP.TC ---
Today's Communication/Plan
-
Present plans are for IV cefazolin through November 02
If can find psych facility that can take him consideration for change to an oral antibiotic with consultation with ID at that point
Continue wound care
Continue attempts at ambulation to see if will require device going forward
Assessment / Plan
Assessment / Plan
43-year-old male presents from [facility] where he had been admitted 4 days ago for presentation of suicidal ADHD and and now presents to this facility with a apparent sepsis presentation change in mental status that is improved somewhat since
arrival as was basically poorly responsive and now awake and alert although looks to be chronically ill and presenting with a fever of over 103 with an obviously infected right lower extremity from just below the knee involving the entire foot with
a large chronic appearing eschar at the base of his right great toe.� His blood pressure is soft at 92 systolic he is not tachycardic but is hypoxic looks malnourished and he is leukopenic.� Initial CT PE study shows no evidence of pulmonary emboli
or pneumonic infiltrate.� Has been empirically started on vancomycin and cefepime in the ED.� He is on chronic methadone maintenance along with a history of seizure disorder on valproate no recent seizures related by patient.
Initial plain radiologic imaging of the right foot does not show evidence of bone involvement
CT of the chest unremarkable for PE or pneumonic infiltrate
Urine drug screen only positive for methadone/presently negative for benzodiazepines although listed medication on clonazepam 4 times daily
Severe Sepsis secondary to RLE Cellulitis secondary to Non-Healing Wound
Staph aureus bacteremia prior history of MRSA/presently with MSSA and blood
-Admit to IMU>> MedSurg
-Check Foot MRI as concern for possible underlying osteomyelitis/MRI not showing bone involvement
-Check Echo TTE no vegetation seen
-Continue cefazolin/MSSA bacteremia
-Consult Wound Care appreciated
-Consult Podiatry appreciated
-History of MRSA/MRSA screen here negative/vancomycin DC'd
-ID has narrowed to cefazolin
-Initial blood culture positive for MSSA all subsequent cultures thus far no growth plan is for antibiotic therapy through November 02
Acute Kidney Injury
-Continue IVFs
-Recheck labs in AM/creatinine dropped from 1.5-1.3>> now 1.0
Anemia/pancytopenia?
-Leukopenia on presentation and initial hemoglobin 13.2>>> now 9.8 >> 10.7
-Thrombocytopenia/unclear baseline we will have to monitor with DVT prophylaxis and defer further chemical prophylaxis
-HIV negative
Seizure Disorder
-Continue divalproex - Check level
Anxiety/Auditory Hallucinations
-Patient from [facility]
-Continue regimen clonazepam, olanzapine, sertraline and trazodone as prior to admission
-Psychiatry following/issue at discharge will be finding a appropriate psych facility and whether by then still require IV antibiotic
Opioid Dependence
-Continue methadone as prior to admission
Tobacco Use Disorder
-Encourage smoking cessation
-Continue nicotine patch
DVT proph: Lovenox
Code Status: Full Code
Anticipated Discharge: 24 - 48 hours
Subjective/Interval History
-
Date of Service: October 26, 2023
States he had more trouble getting to sleep last night eventually did sleep and woke him from sleep on rounds. No new complaints. Did not ambulate much yesterday.
Objective Data
-
Labs:
Laboratory Results
10/26/23
05:35
WBC 3.4 L
Hgb 10.7 L
Hct 31.2 L
Plt Count 77 L D
Sodium 138
Potassium 3.9
Chloride 100
Carbon Dioxide 29
BUN 12
Creatinine 0.8
Glucose 103 H
Calcium 8.1 L
Vital Signs:
Vital Signs
Temp Pulse Resp BP Pulse Ox
98.1 F 57 16 109/65 98
10/26/23 03:23 10/25/23 20:18 10/25/23 20:18 10/25/23 20:18 10/25/23 20:34
I&O
10/25/23 10/26/23 10/27/23
06:59 06:59 06:59
Intake Total 490 / 490 800 / 800
Output Total 1830 / 1830 2275 / 2275
Balance -1340 / -1340 -1475 / -1475
Review of Systems
-
History Source: Patient
Constitutional: Reports No Symptoms
EENT: Reports No Symptoms Reported
Respiratory: Reports No Symptoms
Psych: Reports Depressed
Physical Exam
-
General: Appears Chronically Ill
HEENT: Normocephalic
Respiratory: Clear to Auscultation
Cardiac: Regular Rhythm
GI: Soft
Musculoskeletal: Edema, Right Lower Extrem
Psych: Calm
Data Reviewed
-
Total Time Spent with Patient (in minutes): 45
Labs: Labs Reviewed by me (White count 3.4 hemoglobin 10.7 but stable platelet count 77,000 up from 60,000/chemistry stable)
[2023-10-26 07:46] VITALS: BP 118/74
--- NOTE | 2023-10-26 09:32 | W.PN.ID1 ---
Date of Service
Date of Service: October 26, 2023
Today's Communication
- continue cefazolin - tentatively x 2 weeks through 11/02, alternatively pending dispo might be a candidate for a long acting lipoglycopeptide which is an IV form of vancomycin with a very long half life if it allows for a safe discharge
significantly earlier than 11/02
Assessment / Plan
S aureus bacteremia
Cellulitis -resolved
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
H/o S aureus bacteremia - R hip septic joint s/p replacement
PATRICIA, Pancytopenia
Seizure Disorder - on divalproex
Remote history of IVDU
- repeat blood cultures x2 in progress - continue to follow
- oral antibiotics not appropriate for s aureus bacteremia and were not recommended by me
- continue cefazolin - tentatively x 2 weeks through 11/02, alternatively pending dispo might be a candidate for a long acting lipoglycopeptide which is an IV form of vancomycin with a very long half life if it allows for a safe discharge
significantly earlier than 11/02
- follow clinically
Chief Complaint
-: Fever and Bacteremia
Subjective / Review of Systems
afebrile
bp stable
improved leukopenia
cr stable
repeat blood cultures remain no growth to date
tolerating current therapies
Vital Signs / Physical Exam
Vital Signs
Vital Signs
Temp Pulse Resp BP Pulse Ox
98.2 F 58 18 118/74 95
10/26/23 07:46 10/26/23 07:46 10/26/23 07:46 10/26/23 07:46 10/26/23 07:46
Physical Exam
Constitutional: No Acute Distress
Cardiovascular: Regular Rate and S1/S2; Negative Murmur or Rub
Pulmonary: Clear and Symmetric; Negative Wheezes or Rales
Gastrointestinal: Soft, Non Tender, Non Distended and Normal Bowel Sounds
Skin: Warm and Dry; Negative Rash or Jaundice
Objective Data
Lab Data
Lab Results
10/26/23 05:35
10/26/23 05:35
PT 16.4 Sec (11.4-14.6) H 10/21/23 14:03
INR 1.34 10/21/23 14:03
APTT 30.2 Sec (23.4-35.0) 10/21/23 14:03
Estimated Creat Clear > 125 ml/min 10/26/23 05:35
Lactic Acid 1.6 mmol/L (0.7-2.0) 10/21/23 13:36
Total Bilirubin 0.5 mg/dl (0.2-1.3) 10/22/23 04:50
AST 28 U/L (17-59) 10/22/23 04:50
ALT < 10 U/L (0-50) 10/22/23 04:50
Alkaline Phosphatase 52 U/L (38-126) 10/22/23 04:50
Most recent labs reviewed.
Micro Results:
10/23/23 08:29 Blood Culture - Preliminary
Blood/Venous No Growth in 72 hours- Final report to follow
10/25/23 04:51 Blood Culture - Preliminary
Blood/Venous No Growth in 24 hours- Final report to follow
10/26/23 05:35 Blood Culture - Pending
Blood/Venous
10/24/23 04:58 Blood Culture - Preliminary
Blood/Venous No Growth in 48 hours- Final report to follow
10/23/23 09:43 Blood Culture - Preliminary
Blood/Venous No Growth in 48 hours- Final report to follow
10/21/23 18:01 Blood Culture - Preliminary
Blood/Venous S aureus-Methicillin Sensitive
Gram Stain - Preliminary
10/21/23 13:36 Blood Culture - Preliminary
Blood/Venous S aureus-Methicillin Sensitive
Gram Stain - Preliminary
10/21/23 20:07 MRSA Screen - Final
Nose No Methicillin Resistant Staphylococcus aureus isolated.
10/21/23 13:36 Influenza Types A & B (JODI) - Final
Nasal Swab Negative for Influenza A & B, NAAT
Negative results must be combined with clinical observations
and patient history.
Nucleic Acid Amplification test (NAAT)performed on the
[employer] platform.
Care Review
Plan reviewed with: Physician (Dr Hearn - no oral antibiotics)
[2023-10-26] MEDS: ZOLOFT 100 MG PO ×2 (09:41→19:57)
[2023-10-26] MEDS: PROTONIX 40 MG PO (09:41)
[2023-10-26] MEDS: KLONOPIN 0.5 MG PO ×4 (09:42→22:10)
[2023-10-26] MEDS: NEURONTIN 100 MG PO (09:42)
[2023-10-26] MEDS: DEPAKOTE (12 HR RELEASE) 250 MG PO (09:42)
[2023-10-26] MEDS: NICODERM TRANSDERMAL 21 MG TRANSDERM (09:42)
[2023-10-26] MEDS: METHADONE 100 MG/10 ML 140 MG PO (09:43)
[2023-10-26] MEDS: BACTROBAN 2% OINTMENT 1 APPLIC TOPICAL (09:43)
--- NOTE | 2023-10-26 11:56 | W.PN.UPDATE ---
Update Note
Progress Note Update
Pt seen, chart reviewed. Pt a little more awake this morning, but still slowed, somewhat lethargic. Hospitalist decreased Risperidone/stopped AM dose- did not receive this morning. No EPS evident. Pt c/o difficulty falling asleep last night. He
reports passing SI with no specific plan; pt ambivalent about being able to be safe at home. Pt continues to be on increased dose of Zoloft 200 mg per day- increased at [facility] during 4-day stay prior to transfer here at . No overt signs
of psychosis.
Imp:� MDD with psychotic features (reported hallucinations)
�� � � Opioid Dependence, on Methadone Maintenance tx
Rec:� Continue to taper down Zyprexa, monitor response to trial of Risperidone- now at HS only, as well as increased Zoloft
�� � � will follow
[2023-10-26 15:36] VITALS: BP 110/60
[2023-10-26] MEDS: LOVENOX 40 MG SC (17:14)
[2023-10-26] MEDS: DESYREL 75 MG PO (22:10)
[2023-10-26] MEDS: RISPERDAL 1 MG PO (22:10)
[2023-10-26] MEDS: DEPAKOTE (12 HR RELEASE) 1000 MG PO (22:10)
[2023-10-26] MEDS: ZYPREXA 5 MG PO (22:47)
[2023-10-26 23:00] VITALS: BP 133/71
--- NOTE | 2023-10-27 03:14 | PTCARENOTE ---
Pt AAOx3 slow speech but appears much less drowsy. Pt engaging in conversation about move he was watching. Pt periodically having audible hallucinations with degrading remarks along with some times seeing shadows. Assessment care and vitals as
charted.
[2023-10-27] MEDS: ANCEF 10 IV ×3 (05:05→21:17)
[2023-10-27] MEDS: PROTONIX 40 MG PO (08:33)
[2023-10-27] MEDS: NICODERM TRANSDERMAL 21 MG TRANSDERM (08:33)
[2023-10-27] MEDS: KLONOPIN 0.5 MG PO ×4 (08:33→22:39)
[2023-10-27] MEDS: DEPAKOTE (12 HR RELEASE) 250 MG PO (08:33)
[2023-10-27] MEDS: ZOLOFT 100 MG PO ×2 (08:33→20:36)
[2023-10-27] MEDS: NEURONTIN 100 MG PO (08:33)
[2023-10-27] MEDS: METHADONE 100 MG/10 ML 140 MG PO (08:34)
[2023-10-27] MEDS: TYLENOL 650 MG PO (08:34)
[2023-10-27 08:35] VITALS: BP 121/79
[2023-10-27] MEDS: BACTROBAN 2% OINTMENT 1 APPLIC TOPICAL (08:35)
--- NOTE | 2023-10-27 10:59 | W.PN.ID1 ---
Date of Service
Date of Service: October 27, 2023
Today's Communication
- continue cefazolin - tentatively x 2 weeks through 11/02, alternatively pending dispo might be a candidate for a long acting lipoglycopeptide which is an IV form of vancomycin with a very long half life if it allows for a safe discharge
significantly earlier than 11/02
Assessment / Plan
S aureus bacteremia - cleared
Cellulitis -resolved
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
H/o S aureus bacteremia - R hip septic joint s/p replacement
PATRICIA, Pancytopenia
Seizure Disorder - on divalproex
Remote history of IVDU
- repeat blood cultures x2 no growth to date
- continue cefazolin - tentatively x 2 weeks through 11/02, alternatively pending dispo might be a candidate for a long acting lipoglycopeptide which is an IV form of vancomycin with a very long half life if it allows for a safe discharge
significantly earlier than 11/02
- follow clinically
Chief Complaint
-: Fever and Bacteremia
Subjective / Review of Systems
afebrile
bp stable
no labs this am
blood cultures cleared
Vital Signs / Physical Exam
Vital Signs
Vital Signs
Temp Pulse Resp BP Pulse Ox
98.1 F 56 18 121/79 95
10/27/23 07:40 10/27/23 08:35 10/27/23 08:35 10/27/23 08:35 10/27/23 08:35
Physical Exam
Constitutional: No Acute Distress
Cardiovascular: Regular Rate and S1/S2; Negative Murmur or Rub
Pulmonary: Clear and Symmetric; Negative Wheezes or Rales
Gastrointestinal: Soft, Non Tender, Non Distended and Normal Bowel Sounds
Skin: Warm and Dry; Negative Rash or Jaundice
Wound: Other (dressing clean, dry, intact)
Objective Data
Lab Data
Lab Results
10/26/23 05:35
10/26/23 05:35
PT 16.4 Sec (11.4-14.6) H 10/21/23 14:03
INR 1.34 10/21/23 14:03
APTT 30.2 Sec (23.4-35.0) 10/21/23 14:03
Estimated Creat Clear > 125 ml/min 10/26/23 05:35
Lactic Acid 1.6 mmol/L (0.7-2.0) 10/21/23 13:36
Total Bilirubin 0.5 mg/dl (0.2-1.3) 10/22/23 04:50
AST 28 U/L (17-59) 10/22/23 04:50
ALT < 10 U/L (0-50) 10/22/23 04:50
Alkaline Phosphatase 52 U/L (38-126) 10/22/23 04:50
Most recent labs reviewed.
Micro Results:
10/23/23 09:43 Blood Culture - Preliminary
Blood/Venous No Growth in 4 days- Final report to follow
10/23/23 08:29 Blood Culture - Preliminary
Blood/Venous No Growth in 4 days- Final report to follow
10/26/23 05:35 Blood Culture - Preliminary
Blood/Venous No Growth in 24 hours- Final report to follow
10/24/23 04:58 Blood Culture - Preliminary
Blood/Venous No Growth in 72 hours- Final report to follow
10/25/23 04:51 Blood Culture - Preliminary
Blood/Venous No Growth in 48 hours- Final report to follow
10/21/23 18:01 Blood Culture - Preliminary
Blood/Venous S aureus-Methicillin Sensitive
Gram Stain - Preliminary
10/21/23 13:36 Blood Culture - Preliminary
Blood/Venous S aureus-Methicillin Sensitive
Gram Stain - Preliminary
10/21/23 20:07 MRSA Screen - Final
Nose No Methicillin Resistant Staphylococcus aureus isolated.
10/21/23 13:36 Influenza Types A & B (JODI) - Final
Nasal Swab Negative for Influenza A & B, NAAT
Negative results must be combined with clinical observations
and patient history.
Nucleic Acid Amplification test (NAAT)performed on the
[employer] platform.
Care Review
Plan reviewed with: Physician (Dr Ladd and Dr Coulter - boyd)
--- NOTE | 2023-10-27 11:27 | CM ---
Addendum entered by Le Rai RN 10/27/23 16:24:
Spoke with Amy Rainey, [facility] ([place] [phone], fax [phone]); they cannot accept the patient due to his mobility. They cannot do IV or IM antibiotics, only PO.
Message to [facility] [employer] [facility]: [facility] declined Mr Deborah, even if switched to PO Abx (they do not do IV or IM) due to his mobility issues. It will be difficult to find an Inpatient Psych facility to accept him as he requires
mod assist for mobility, and per PT is not expected to become independent again soon. Also difficult to get an accepting SNF due to his high dose methadone.
Original Note:
Patient from [facility] with Hx Cerebral Palsy with Dx Severe Sepsis secondary to RLE Cellulitis secondary to Non-Healing Wound, PATRICIA, Anemia/pancytopenia?, Anxiety/Auditory Hallucinations. Room air. Receiving
methadone, IV Abx. Psych Consult. Seen by wound care nurse- nancy ibarra. PT 10/25; mod assist transfers, min assist ambulation, recommend inpt psych v SNF.
Message from nurse Meghana that patient interested in [facility].
Phone call to [facility] Reyes in [place] (ph [phone]); they are a voluntary psych program providing 3-5 days respite only.
Spoke with patient and informed him that [facility] would not be an appropriate referral for his needs and he stated he understood. He is hoping for referrals close to [facility] where he lives, and was made aware that CM will see where he
could be accepted that could meet his medical and psych needs.
Phone call to [facility] (ph [phone]); left message requesting callback re; referral.
Spoke with Esmer, [facility]; left message requesting callback today re; referral.
[facility] they are not accepting any referrals at this time as they are on lockdown due to Covid.
[facility] only does substance abuse rehab with medical needs so not referring.
Spoke with Peyton [facility]; she spoke with Karan - they are not accepting patients who need IV Abx.
Phone call to [facility]; left message requesting callback re; referral.
Spoke with Amy Heaton [facility]; they are closed to referrals at this time.
Spoke with [facility]; they only do dual diagnosis if active rehab needs.
Spoke with Amy Vaughan [facility] ([place] [phone], fax [phone]); they do take inpatient psych referrals with medical needs and do have an available bed. Referral sent via Active Fax.
Plan follow up [facility] for acceptance.
[2023-10-27 13:20] VITALS: BP 133/92; PULSE 57; O2SAT 99
--- NOTE | 2023-10-27 14:45 | PTCARENOTE ---
10/27- Patient oriented and transferred to unit without issue. AAOX3; flat affect, slow speech. Skin=pale/dry. Wound dressings on R-foot and L-toe are CDI, freshly dressed as of today. Patient denies any current needs at this time.
--- NOTE | 2023-10-27 14:45 | W.PN.HOSP.TC ---
Today's Communication/Plan
-
Continue Cefazolin therapy through November 02
Assessment / Plan
Assessment / Plan
Assessment/Plan
Severe Sepsis secondary to RLE Cellulitis secondary to Non-Healing Wound
Staph aureus bacteremia prior history of MRSA/presently with MSSA and blood
-Check Foot MRI as concern for possible underlying osteomyelitis/MRI not showing bone involvement
-Check Echo TTE no vegetation seen
-Continue cefazolin/MSSA bacteremia
-Consult Wound Care appreciated
-Consult Podiatry appreciated
-History of MRSA/MRSA screen here negative/vancomycin DC'd
-ID has narrowed to cefazolin
-Initial blood culture positive for MSSA all subsequent cultures thus far no growth plan is for antibiotic therapy through November 02
Acute Kidney Injury
-Continue IVFs
-Recheck labs in AM/creatinine dropped from 1.5-1.3>> now 0.8
Anemia/pancytopenia?
-Leukopenia on presentation and initial hemoglobin 13.2>>> now 9.8 >> 10.7
-Thrombocytopenia/unclear baseline we will have to monitor with DVT prophylaxis and defer further chemical prophylaxis
-HIV negative
Seizure Disorder
-Continue divalproex - Check level
Anxiety/Auditory Hallucinations
-Patient from [facility]
-Continue regimen clonazepam, olanzapine, sertraline and trazodone as prior to admission
-Psychiatry following/issue at discharge will be finding a appropriate psych facility and whether by then still require IV antibiotic
Opioid Dependence
-Continue methadone as prior to admission
Tobacco Use Disorder
-Encourage smoking cessation
-Continue nicotine patch
DVT proph: Lovenox
Code Status: Full Code
Anticipated Discharge: Within 24 hours
Subjective/Interval History
-
Date of Service: October 27, 2023
Objective Data
-
Vital Signs:
Vital Signs
Temp Pulse Resp BP Pulse Ox
98.1 F 56 18 121/79 95
10/27/23 07:40 10/27/23 08:35 10/27/23 08:35 10/27/23 08:35 10/27/23 08:35
I&O
10/26/23 10/27/23 10/28/23
06:59 06:59 06:59
Intake Total 800 / 800 1280 / 1280 480 / 480
Output Total 2275 / 2275 2450 / 2450
Balance -1475 / -1475 -1170 / -1170 480 / 480
Physical Exam
-
General: Well Nourished
HEENT: Normocephalic and Atraumatic
Respiratory: Clear to Auscultation; Negative Wheezes
Cardiac: Regular Rhythm and S1/S2
GI: Soft, Nontender and Nondistended
Musculoskeletal: Edema, Right Upper Extrem
Psych: Calm
--- NOTE | 2023-10-27 14:47 | W.PN.HOSP.TC ---
Today's Communication/Plan
-
Afebrile.
Remains on IV antibiotics
Repeated blood cultures negative to date.
Mental status improved on current psychiatric regimen.
Discharge planing to psychiatric facility with completion of IV antibiotics through 11/02
Assessment / Plan
Assessment / Plan
43-year-old male presents from [facility] where he had been admitted 4 days ago for presentation of suicidal ADHD and and now presents to this facility with a apparent sepsis presentation change in mental status that is improved somewhat since
arrival as was basically poorly responsive and now awake and alert although looks to be chronically ill and presenting with a fever of over 103 with an obviously infected right lower extremity from just below the knee involving the entire foot with
a large chronic appearing eschar at the base of his right great toe.� His blood pressure is soft at 92 systolic he is not tachycardic but is hypoxic looks malnourished and he is leukopenic.� Initial CT PE study shows no evidence of pulmonary emboli
or pneumonic infiltrate.� Has been empirically started on vancomycin and cefepime in the ED.� He is on chronic methadone maintenance along with a history of seizure disorder on valproate no recent seizures related by patient.
Initial plain radiologic imaging of the right foot does not show evidence of bone involvement
CT of the chest unremarkable for PE or pneumonic infiltrate
Urine drug screen only positive for methadone/presently negative for benzodiazepines although listed medication on clonazepam 4 times daily
Severe Sepsis secondary to RLE Cellulitis secondary to Non-Healing Wound
Staph aureus bacteremia prior history of MRSA/presently with MSSA and blood
-Admit to IMU>> MedSurg
-Check Foot MRI as concern for possible underlying osteomyelitis/MRI not showing bone involvement
-Check Echo TTE no vegetation seen
-Continue cefazolin/MSSA bacteremia
-Consult Wound Care appreciated
-Consult Podiatry appreciated
-History of MRSA/MRSA screen here negative/vancomycin DC'd
-ID has narrowed to cefazolin
-Initial blood culture positive for MSSA all subsequent cultures thus far no growth plan is for antibiotic therapy through November 02
Acute Kidney Injury
-Continue IVFs
-Recheck labs in AM/creatinine dropped from 1.5-1.3>> now 1.0
Anemia/pancytopenia?
-Leukopenia on presentation and initial hemoglobin 13.2>>> now 9.8 >> 10.7
-Thrombocytopenia/unclear baseline we will have to monitor with DVT prophylaxis and defer further chemical prophylaxis
-HIV negative
Seizure Disorder
-Continue divalproex - Check level
Anxiety/Auditory Hallucinations
-Patient from [facility]
-Continue regimen clonazepam, olanzapine, sertraline and trazodone as prior to admission
-Psychiatry following/issue at discharge will be finding a appropriate psych facility and whether by then still require IV antibiotic
Opioid Dependence
-Continue methadone as prior to admission
Tobacco Use Disorder
-Encourage smoking cessation
-Continue nicotine patch
DVT proph: Lovenox
Code Status: Full Code
Anticipated Discharge: 24 - 48 hours
Subjective/Interval History
-
Date of Service: October 27, 2023
Objective Data
-
Vital Signs:
Vital Signs
Temp Pulse Resp BP Pulse Ox
98.1 F 56 18 121/79 95
10/27/23 07:40 10/27/23 08:35 10/27/23 08:35 10/27/23 08:35 10/27/23 08:35
I&O
10/26/23 10/27/23 10/28/23
06:59 06:59 06:59
Intake Total 800 / 800 1280 / 1280 480 / 480
Output Total 2275 / 2275 2450 / 2450
Balance -1475 / -1475 -1170 / -1170 480 / 480
Physical Exam
-
General: Well Developed and No Apparent Distress
HEENT: Normocephalic, Atraumatic and Moist Mucous Membranes
Respiratory: Clear to Auscultation
Cardiac: Regular Rhythm and S1/S2; Negative Murmur, Rub or Gallop
GI: Soft, Nontender, Nondistended and Normal Bowel Sounds; Negative Organomegaly
Rectal: Deferred by Provider
Musculoskeletal: No Clubbing, No Cyanosis and No Edema
Skin: Negative Rash
Neuro: Nonfocal/Grossly Intact
--- NOTE | 2023-10-27 14:50 | PTCARENOTE ---
Patient sent to [facility] room 431 with all belongings, headphones, cell phone butcher meat cord, 2 book bags and multiple paper bags. Pt still had cigarettes and liter on chart, sent to [facility]. Pt still has medications locked in pharmacy.
[2023-10-27 15:30] VITALS: BP 111/79
--- NOTE | 2023-10-27 16:44 | W.PN.UPDATE ---
Update Note
Progress Note Update
Pt seen, resting in bed after transfer to 4th floor from IMU. Pt more alert each day. He continues to reports AH/voices, though not as prominent. Tolerating trial of Risperidone- now at HS only. Pt concerned about his foot infection and safety
at home, states he lives on his own in an apartment building, goes to [facility] 4 days per week, as well as outpatient therapist and Psychiatrist appointments. No EPS evident; pt has CP. Overall, pt feels a little better in mental state.
QTc today 464, mildly prolonged compared to 436 on admission.
Imp: MDD with psychotic features (reported hallucinations)
�� � � Opioid Dependence, on Methadone Maintenance tx
Rec:� Continue to taper down Zyprexa, monitor response to trial of Risperidone- will increase to 2 mg HS
Continue Zoloft (increased to 200 mg per day at [facility] prior to admission), need to continue to monitor QTc due to interaction with Methadone
�� � � will follow
[2023-10-27] MEDS: LOVENOX 40 MG SC (16:57)
[2023-10-27] MEDS: ZYPREXA 5 MG PO (22:39)
[2023-10-27] MEDS: RISPERDAL 2 MG PO (22:39)
[2023-10-27] MEDS: DEPAKOTE (12 HR RELEASE) 1000 MG PO (22:39)
[2023-10-27] MEDS: DESYREL 75 MG PO (22:40)
[2023-10-27 23:00] VITALS: BP 139/90
[2023-10-28] MEDS: ANCEF 10 IV ×3 (04:28→19:54)
[2023-10-28 07:00] VITALS: BP 135/71
[2023-10-28] MEDS: ZOLOFT 100 MG PO ×2 (08:33→19:54)
[2023-10-28] MEDS: DEPAKOTE (12 HR RELEASE) 250 MG PO (08:33)
[2023-10-28] MEDS: PROTONIX 40 MG PO (08:33)
[2023-10-28] MEDS: KLONOPIN 0.5 MG PO ×4 (08:34→22:38)
[2023-10-28] MEDS: NICODERM TRANSDERMAL 21 MG TRANSDERM (08:34)
[2023-10-28] MEDS: METHADONE 100 MG/10 ML 140 MG PO (08:34)
[2023-10-28] MEDS: NEURONTIN 100 MG PO (08:34)
[2023-10-28] MEDS: BACTROBAN 2% OINTMENT 1 APPLIC TOPICAL (08:45)
--- NOTE | 2023-10-28 10:01 | CM ---
Addendum entered by Nadine Gee 10/28/23 15:48:
manager finance sent out 26 referrals patient has still not been accepted at any psychiatric facility. manager finance spoke with Jana at [facility] and she stated that they cannot accept a medical patient who has difficulty ambulating. Case
manager finance spoke with admissions at [facility] and they cannot accept patient as patient is too medically complex due to wound care, seizure d/o, mental health and difficulty ambulating.
Original Note:
manager finance reviewed patient's chart and patient was admitted from [facility] for suicide ideation from [place]. Patient with Cerebral Palsy and RLE Cellulitis secondary to non healing wound, patient on Methodone
140mg and IV ABX Ancef 2 gm Q 8. [facility] will not accept patient back unless patient is 'fully ambulatory and not a fall risk' (Patient was not fully ambulatory to begin with as patient has Cerebral Palsy).
Patient has been referred to multiple psychiatric facilities and has been denied by all facilities.
[facility]: No due to patient mobility, IV ABX
[facility] [place]: No, respite care
[facility]: No, Patient mobility issues
[facility]: No
[facility]: No
[facility]:No
[facility]; No referrals at this time
[facility]: Patient needs to be off assist device and IV ABX.
[facility]; Cannot accept IV ABX
[facility]; declined due to patient's mobility and IV ABX.
Additional Referrals sent to
[facility]
Plan; Placement if possible
[2023-10-28] MEDS: MIRALAX 17 GRAMS PO (11:23)
--- NOTE | 2023-10-28 11:45 | W.PN.UPDATE ---
Update Note
Progress Note Update
Patient seen at bedside, chart reviewed, discussed with staff. Mr. Cabrera reports feeling less sleepy overall. He was sleeping upon entering his room but easily aroused to name. He tells me he has not had any SI nor AH in the last 24hours. He says he
feels he has been stabilizing since being in the hospital. He does not feel he needs IP psych treatment at this moment and feels he is safe to return to his OP Psych provider at [facility] as well as his Methadone clinic [facility]. He explains his mental health has been 'up and down' for the last year and his is trying to feel better. He talks to me about his sobriety as well. He does have a lot of concern regarding his foot. He tells me it started a long
time ago after a surgery and it healed and then came back. He is worried this will happen again.
Impression/Plan:� Major depressive disorder with psychotic features - Continue with Zoloft at 200mg and Trazodone 75mg, will now stop Zyprexa and continue Risperdal 2mg HS, may need to adjust/increase. Continue to monitor QTC, 10/27 QTC was 464.
Opioid Dependence, on Methadone Maintenance and followed at [facility].
--- NOTE | 2023-10-28 12:31 | W.PN.HOSP.TC ---
Addendum entered and electronically signed by Kamran Ladd MD 10/28/23 15:31:
Patient seen and examined.
Discussed with resident
Impression/plan:
Sepsis secondary to right lower extremity cellulitis.
MSSA bacteremia.
Echocardiogram with no evidence of endovascular infection.
Continue antibiotics with plan for IV Ancef through 11/02
Acute kidney injury improved with IV fluids.
Opiate use disorder on methadone.
Altered mental status suspected due to continuation of above as well as acute infection.
Seizure disorder.
Psychiatric/neurologic regimen being adjusted.
Found to be oversedated over the last 48 hours.
Weaned off Zyprexa with transition to Risperdal. Continue Risperdal, will attempt to reduce dose to 1 mg at bedtime and monitor closely, could come back to 2 mg if required
Discussed with psychiatry. Continue Zoloft and trazodone
Prolonged QTc stable and improved.
Original Note:
Today's Communication/Plan
-
Discharge planing to psychiatric facility with completion of IV antibiotics through 11/02
Assessment / Plan
Assessment / Plan
Assessment/Plan
Severe Sepsis secondary to RLE Cellulitis secondary to Non-Healing Wound
Staph aureus bacteremia prior history of MRSA/presently with MSSA and blood
-Check Foot MRI as concern for possible underlying osteomyelitis/MRI not showing bone involvement
-Check Echo TTE no vegetation seen
-Continue cefazolin/MSSA bacteremia
-Consult Wound Care appreciated
-Consult Podiatry appreciated
-History of MRSA/MRSA screen here negative/vancomycin DC'd
-ID has narrowed to cefazolin
-Initial blood culture positive for MSSA all subsequent cultures thus far no growth plan is for antibiotic therapy through November 02
Acute Kidney Injury
-Continue IVFs
-Recheck labs in AM/creatinine dropped from 1.5-1.3>> now 0.8
Anemia/pancytopenia?
-Leukopenia on presentation and initial hemoglobin 13.2>>> now 9.8 >> 10.7
-Thrombocytopenia/unclear baseline we will have to monitor with DVT prophylaxis and defer further chemical prophylaxis
-HIV negative
Seizure Disorder
-Continue divalproex - Check level
Anxiety/Auditory Hallucinations
-Patient from [facility]
-Continue regimen clonazepam, olanzapine, sertraline and trazodone as prior to admission
-Psychiatry following/issue at discharge will be finding a appropriate psych facility and whether by then still require IV antibiotic
Opioid Dependence
-Continue methadone as prior to admission
Tobacco Use Disorder
-Encourage smoking cessation
-Continue nicotine patch
DVT proph: Lovenox
Code Status: Full Code
Anticipated Discharge: Within 24 hours
Subjective/Interval History
-
Date of Service: October 28, 2023
Objective Data
-
Vital Signs:
Vital Signs
Temp Pulse Resp BP Pulse Ox
97.6 F 63 18 135/71 95
10/28/23 07:00 10/28/23 07:00 10/28/23 07:00 10/28/23 07:00 10/28/23 07:00
I&O
10/27/23 10/28/23 10/29/23
06:59 06:59 06:59
Intake Total 1280 / 1280 1200 / 1200
Output Total 2450 / 2450 1350 / 1350
Balance -1170 / -1170 -150 / -150
Physical Exam
-
General: Well Developed and No Apparent Distress
HEENT: Normocephalic, Atraumatic and Moist Mucous Membranes
Respiratory: Clear to Auscultation
Cardiac: Regular Rhythm and S1/S2; Negative Murmur or Rub
Musculoskeletal: No Clubbing, No Cyanosis and No Edema
Skin: Negative Rash
Neuro: Nonfocal/Grossly Intact
--- NOTE | 2023-10-28 13:36 | W.PN.ID1 ---
Date of Service
Date of Service: October 28, 2023
Today's Communication
- continue cefazolin x 2 weeks through 11/02 - heard back from leather case finisher that IV antibiotics are not preventing discharge plan - rather wound care and ambulation are ongoing issues
Assessment / Plan
S aureus bacteremia - cleared
Cellulitis -resolved
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
H/o S aureus bacteremia - R hip septic joint s/p replacement
PATRICIA, Pancytopenia
Seizure Disorder - on divalproex
Remote history of IVDU
- repeat blood cultures x2 no growth to date
- continue cefazolin x 2 weeks through 11/02 - heard back from [facility] case finisher that IV antibiotics are not preventing discharge plan - rather wound care and ambulation are ongoing issues
- follow clinically
Chief Complaint
-: Fever and Bacteremia
Subjective / Review of Systems
afebrile
bp stable
improved leukopenia
cr stable
repeat blood cultures remain no growth
Vital Signs / Physical Exam
Vital Signs
Vital Signs
Temp Pulse Resp BP Pulse Ox
97.6 F 63 18 135/71 95
10/28/23 07:00 10/28/23 07:00 10/28/23 07:00 10/28/23 07:00 10/28/23 07:00
Physical Exam
Constitutional: No Acute Distress and Comfortable
Cardiovascular: Regular Rate
Pulmonary: Symmetric and Non Labored
Gastrointestinal: Non Distended
Skin: Warm and Dry; Negative Rash or Jaundice
Neurological: Negative Awake
Objective Data
Lab Data
Lab Results
10/26/23 05:35
10/26/23 05:35
PT 16.4 Sec (11.4-14.6) H 10/21/23 14:03
INR 1.34 10/21/23 14:03
APTT 30.2 Sec (23.4-35.0) 10/21/23 14:03
Estimated Creat Clear > 125 ml/min 10/26/23 05:35
Lactic Acid 1.6 mmol/L (0.7-2.0) 10/21/23 13:36
Total Bilirubin 0.5 mg/dl (0.2-1.3) 10/22/23 04:50
AST 28 U/L (17-59) 10/22/23 04:50
ALT < 10 U/L (0-50) 10/22/23 04:50
Alkaline Phosphatase 52 U/L (38-126) 10/22/23 04:50
Most recent labs reviewed.
Micro Results:
10/21/23 18:01 Blood Culture - Final
Blood/Venous S aureus-Methicillin Sensitive
Gram Stain - Final
10/21/23 13:36 Blood Culture - Final
Blood/Venous S aureus-Methicillin Sensitive
Gram Stain - Final
10/23/23 09:43 Blood Culture - Final
Blood/Venous No Growth - Final Report
10/23/23 08:29 Blood Culture - Final
Blood/Venous No Growth - Final Report
10/26/23 05:35 Blood Culture - Preliminary
Blood/Venous No Growth in 48 hours- Final report to follow
10/24/23 04:58 Blood Culture - Preliminary
Blood/Venous No Growth in 4 days- Final report to follow
10/25/23 04:51 Blood Culture - Preliminary
Blood/Venous No Growth in 72 hours- Final report to follow
10/21/23 20:07 MRSA Screen - Final
Nose No Methicillin Resistant Staphylococcus aureus isolated.
10/21/23 13:36 Influenza Types A & B (JODI) - Final
Nasal Swab Negative for Influenza A & B, NAAT
Negative results must be combined with clinical observations
and patient history.
Nucleic Acid Amplification test (NAAT)performed on the
[employer] platform.
[2023-10-28 15:00] VITALS: BP 102/69
[2023-10-28] MEDS: LOVENOX 40 MG SC (17:47)
[2023-10-28] MEDS: DEPAKOTE (12 HR RELEASE) 1000 MG PO (22:38)
[2023-10-28] MEDS: RISPERDAL 1 MG PO (22:38)
[2023-10-28] MEDS: DESYREL 75 MG PO (22:38)
[2023-10-28 23:13] VITALS: BP 136/84
[2023-10-29] MEDS: ANCEF 10 IV ×3 (04:28→19:45)
[2023-10-29 07:30] VITALS: BP 120/73
[2023-10-29] MEDS: DEPAKOTE (12 HR RELEASE) 250 MG PO (08:54)
[2023-10-29] MEDS: NEURONTIN 100 MG PO (08:54)
[2023-10-29] MEDS: ZOLOFT 100 MG PO ×2 (08:54→19:46)
[2023-10-29] MEDS: PROTONIX 40 MG PO (08:54)
[2023-10-29] MEDS: METHADONE 100 MG/10 ML 140 MG PO (08:54)
[2023-10-29] MEDS: KLONOPIN 0.5 MG PO ×4 (08:54→21:03)
[2023-10-29] MEDS: MIRALAX 17 GRAMS PO (08:55)
[2023-10-29] MEDS: NICODERM TRANSDERMAL 21 MG TRANSDERM (08:55)
[2023-10-29] MEDS: BACTROBAN 2% OINTMENT 1 APPLIC TOPICAL (09:01)
[2023-10-29] MEDS: TYLENOL 650 MG PO (09:39)
--- NOTE | 2023-10-29 10:58 | CM ---
Addendum entered by Nadine Gee 10/29/23 15:20:
clinical outcomes manager spoke with admissions for [facility] and [facility], if patient is accepted at [facility] they would need to switch Methadone to pill form. clinical outcomes manager asked facilities to come out and meet with patient.
Original Note:
clinical outcomes manager continues to follow with patient progress and recommendation is for patient to follow up with outpatient psychiatry at [facility] as well as patient's Methadone Clinic at [facility]. Physical therapy are
recommending skilled care and patient is agreeable to [facility] or any other facility that can provide Methadone to patient while receiving therapy.
Plan; To locate skilled facilities that can provide Methadone to patient while receiving PT/OT.
--- NOTE | 2023-10-29 11:22 | W.PN.HOSP.TC ---
Addendum entered and electronically signed by Kamran Ladd MD 10/29/23 16:10:
Patient seen and examined
Discussed with resident
Continue IV antibiotics with plan to complete through 11/03/2023.
Mental status stable with no evidence for agitation or behavioral problems
Continue Risperdal at current dose
Continue methadone.
Ongoing disposition efforts
Original Note:
Today's Communication/Plan
-
Continue Risperdal
Continue antibiotics with plan for IV Ancef through 11/02
Assessment / Plan
Assessment / Plan
Assessment/Plan
Severe Sepsis secondary to RLE Cellulitis secondary to Non-Healing Wound
Staph aureus bacteremia prior history of MRSA/presently with MSSA and blood
-Check Foot MRI as concern for possible underlying osteomyelitis/MRI not showing bone involvement
-Check Echo TTE no vegetation seen
-Continue cefazolin/MSSA bacteremia
-Consult Wound Care appreciated
-Consult Podiatry appreciated
-History of MRSA/MRSA screen here negative/vancomycin DC'd
-ID has narrowed to cefazolin
-Initial blood culture positive for MSSA all subsequent cultures thus far no growth plan is for antibiotic therapy through November 02
Acute Kidney Injury
-Continue IVFs
-Recheck labs in AM/creatinine dropped from 1.5-1.3>> now 0.8
-Acute kidney injury improved with IV fluids.
Anemia/pancytopenia?
-Leukopenia on presentation and initial hemoglobin 13.2>>> now 9.8 >> 10.7
-Thrombocytopenia/unclear baseline we will have to monitor with DVT prophylaxis and defer further chemical prophylaxis
-HIV negative
Seizure Disorder
-Continue divalproex - Check level
Anxiety/Auditory Hallucinations
-Patient from [facility]
-Continue regimen clonazepam, olanzapine, sertraline and trazodone as prior to admission
-Psychiatry following/issue at discharge will be finding a appropriate psych facility and whether by then still require IV antibiotic
Opioid Dependence
-Continue methadone as prior to admission
-Weaned off Zyprexa with transition to Risperdal.� Continue Risperdal, will attempt to reduce dose to 1 mg at bedtime and monitor closely, could come back to 2 mg if required
-Continue Zoloft and trazodone
Tobacco Use Disorder
-Encourage smoking cessation
-Continue nicotine patch
DVT proph: Lovenox
Code Status: Full Code
Anticipated Discharge: Within 24 hours
Subjective/Interval History
-
Date of Service: October 29, 2023
Objective Data
-
Vital Signs:
Vital Signs
Temp Pulse Resp BP Pulse Ox
97.7 F 64 18 120/73 96
10/29/23 07:30 10/29/23 07:30 10/29/23 07:30 10/29/23 07:30 10/29/23 07:30
I&O
10/28/23 10/29/23 10/30/23
06:59 06:59 06:59
Intake Total 1200 / 1200 240 / 240
Output Total 1350 / 1350 1550 / 1550
Balance -150 / -150 -1310 / -1310
Physical Exam
-
General: Well Developed and Well Nourished
HEENT: Normocephalic and Atraumatic
Respiratory: Clear to Auscultation
Cardiac: Regular Rhythm and S1/S2; Negative Murmur or Rub
GI: Soft, Nontender and Nondistended
Musculoskeletal: No Clubbing, No Cyanosis and No Edema
Skin: Warm; Negative Rash
Neuro: Nonfocal/Grossly Intact
--- NOTE | 2023-10-29 11:37 | W.PN.UPDATE ---
Update Note
Progress Note Update
patient seen chart reviewed. discussed with case mgt. mr hodge has improved considerably since i saw him last week. he is reporting no longer hearing voices. he is not having suicidal thoughts. he feels comfortable with the idea of dc to home with
out patient followup. there have been some changes made in meds. zyprexa dc'ed as he was too sedated. he remains on depakote zoloft risperdal klonopin trazodone q hs gabapentin for neuropathy and metadone. this remains a considerable amount of
medication and if he remains here over the next week will talk w him about considering cutting back on for example the qid klonopin. he is feeling physically stronger and pain in leg is lessened. no changes made in psych medications today. will
follow
--- NOTE | 2023-10-29 13:45 | WOUNDNOTE ---
R PLANTAR 1ST MTH (photo taken by BLAYNE Benito)
--- NOTE | 2023-10-29 13:45 | WOUNDNOTE ---
WOC RN note: Dr. Up changed R foot local care to daily moisturizer and clean sock after RN Brianna blakely texted updated R foot callus photo. Area is much improved. Care plan and discharge instructions updated. Will follow peripherally as
needed.
--- NOTE | 2023-10-29 15:06 | W.PN.ID1 ---
Date of Service
Date of Service: October 29, 2023
Today's Communication
- continue cefazolin x 2 weeks through 11/02 - heard back from case making machine operator that IV antibiotics are not preventing discharge plan - rather wound care and ambulation are ongoing issues
Assessment / Plan
S aureus bacteremia - cleared
Cellulitis -resolved
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
H/o S aureus bacteremia - R hip septic joint s/p replacement
PATRICIA, Pancytopenia
Seizure Disorder - on divalproex
Remote history of IVDU
- repeat blood cultures x2 no growth to date
- continue cefazolin x 2 weeks through 11/02 - heard back from case making machine operator that IV antibiotics are not preventing discharge plan - rather wound care and ambulation are ongoing issues
- follow clinically
Chief Complaint
-: Fever and Bacteremia
Subjective / Review of Systems
afebrile
bp stable
tolerating current antibiotics
Vital Signs / Physical Exam
Vital Signs
Vital Signs
Temp Pulse Resp BP Pulse Ox
97.7 F 64 18 120/73 96
10/29/23 07:30 10/29/23 07:30 10/29/23 07:30 10/29/23 07:30 10/29/23 07:30
Physical Exam
Constitutional: No Acute Distress and Comfortable
Cardiovascular: Regular Rate
Pulmonary: Symmetric and Non Labored
Gastrointestinal: Non Distended
Neurological: Negative Awake
Objective Data
Lab Data
Lab Results
10/26/23 05:35
10/26/23 05:35
PT 16.4 Sec (11.4-14.6) H 10/21/23 14:03
INR 1.34 10/21/23 14:03
APTT 30.2 Sec (23.4-35.0) 10/21/23 14:03
Estimated Creat Clear > 125 ml/min 10/26/23 05:35
Lactic Acid 1.6 mmol/L (0.7-2.0) 10/21/23 13:36
Total Bilirubin 0.5 mg/dl (0.2-1.3) 10/22/23 04:50
AST 28 U/L (17-59) 10/22/23 04:50
ALT < 10 U/L (0-50) 10/22/23 04:50
Alkaline Phosphatase 52 U/L (38-126) 10/22/23 04:50
Most recent labs reviewed.
Micro Results:
10/26/23 05:35 Blood Culture - Preliminary
Blood/Venous No Growth in 72 hours- Final report to follow
10/24/23 04:58 Blood Culture - Final
Blood/Venous No Growth - Final Report
10/25/23 04:51 Blood Culture - Preliminary
Blood/Venous No Growth in 4 days- Final report to follow
10/21/23 18:01 Blood Culture - Final
Blood/Venous S aureus-Methicillin Sensitive
Gram Stain - Final
10/21/23 13:36 Blood Culture - Final
Blood/Venous S aureus-Methicillin Sensitive
Gram Stain - Final
10/23/23 09:43 Blood Culture - Final
Blood/Venous No Growth - Final Report
10/23/23 08:29 Blood Culture - Final
Blood/Venous No Growth - Final Report
10/21/23 20:07 MRSA Screen - Final
Nose No Methicillin Resistant Staphylococcus aureus isolated.
10/21/23 13:36 Influenza Types A & B (JODI) - Final
Nasal Swab Negative for Influenza A & B, NAAT
Negative results must be combined with clinical observations
and patient history.
Nucleic Acid Amplification test (NAAT)performed on the
[employer] platform.
[2023-10-29 15:30] VITALS: BP 103/65
[2023-10-29] MEDS: LOVENOX 40 MG SC (17:56)
[2023-10-29] MEDS: DESYREL 75 MG PO (21:03)
[2023-10-29] MEDS: RISPERDAL 1 MG PO (21:03)
[2023-10-29] MEDS: DEPAKOTE (12 HR RELEASE) 1000 MG PO (21:05)
[2023-10-29 23:00] VITALS: BP 90/57
[2023-10-30] MEDS: ANCEF 10 IV ×3 (03:02→20:19)
[2023-10-30 07:30] VITALS: BP 117/81
[2023-10-30] MEDS: DEPAKOTE (12 HR RELEASE) 250 MG PO (09:44)
[2023-10-30] MEDS: MIRALAX 17 GRAMS PO (09:45)
[2023-10-30] MEDS: KLONOPIN 0.5 MG PO ×4 (09:59→21:02)
[2023-10-30] MEDS: NEURONTIN 100 MG PO (09:59)
[2023-10-30] MEDS: PROTONIX 40 MG PO (09:59)
[2023-10-30] MEDS: NICODERM TRANSDERMAL 21 MG TRANSDERM (10:00)
[2023-10-30] MEDS: METHADONE 100 MG/10 ML 140 MG PO (10:00)
[2023-10-30] MEDS: ZOLOFT 100 MG PO ×2 (10:05→20:19)
[2023-10-30 10:45] VITALS: BP 125/67; PULSE 63; O2SAT 95
[2023-10-30] MEDS: FLUSH (NSS) 1 FLUSH IV (12:38)
--- NOTE | 2023-10-30 13:18 | W.PN.UPDATE ---
Update Note
Progress Note Update
patient seen chart reviewed. discussed with nursing and with cm. the patient is doing reasonably well psychiatrically. he feels depression has improved. he is not having suicidal thoughts. hallucinations have all but disappeared. noted he will
need iv antibioitics through 3.4. hopefully a placement can be found that will accomodate the iv antibiotics. he should go to snf prior to return home. will follow
--- NOTE | 2023-10-30 15:06 | W.PN.ID1 ---
Date of Service
Date of Service: October 30, 2023
Today's Communication
- continue cefazolin x 2 weeks through 11/02 - heard back from case checker that IV antibiotics are not preventing discharge plan - rather wound care and ambulation are ongoing issues - if this situation changes please notify me
Assessment / Plan
S aureus bacteremia - cleared
Cellulitis -resolved
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
H/o S aureus bacteremia - R hip septic joint s/p replacement
PATRICIA, Pancytopenia
Seizure Disorder - on divalproex
Remote history of IVDU
- repeat blood cultures x2 no growth to date
- continue cefazolin x 2 weeks through 11/02 - heard back from case checker that IV antibiotics are not preventing discharge plan - rather wound care and ambulation are ongoing issues - if this situation changes please notify me
- follow clinically
Chief Complaint
-: Fever and Bacteremia
Subjective / Review of Systems
afebrile
bp stable
ordering lunch - no complaints
Vital Signs / Physical Exam
Vital Signs
Vital Signs
Temp Pulse Resp BP Pulse Ox
98.7 F 59 20 117/81 95
10/30/23 07:30 10/30/23 07:30 10/30/23 07:30 10/30/23 07:30 10/30/23 07:30
Physical Exam
Constitutional: No Acute Distress
Cardiovascular: Regular Rate and S1/S2; Negative Murmur or Rub
Pulmonary: Clear and Symmetric; Negative Wheezes or Rales
Gastrointestinal: Soft, Non Tender, Non Distended and Normal Bowel Sounds
Skin: Warm and Dry; Negative Rash or Jaundice
Lines: PIV (no erythema, warmth tenderness or drainage)
Objective Data
Lab Data
Lab Results
10/26/23 05:35
10/26/23 05:35
PT 16.4 Sec (11.4-14.6) H 10/21/23 14:03
INR 1.34 10/21/23 14:03
APTT 30.2 Sec (23.4-35.0) 10/21/23 14:03
Estimated Creat Clear > 125 ml/min 10/26/23 05:35
Lactic Acid 1.6 mmol/L (0.7-2.0) 10/21/23 13:36
Total Bilirubin 0.5 mg/dl (0.2-1.3) 10/22/23 04:50
AST 28 U/L (17-59) 10/22/23 04:50
ALT < 10 U/L (0-50) 10/22/23 04:50
Alkaline Phosphatase 52 U/L (38-126) 10/22/23 04:50
Most recent labs reviewed.
Micro Results:
10/26/23 05:35 Blood Culture - Preliminary
Blood/Venous No Growth in 4 days- Final report to follow
10/25/23 04:51 Blood Culture - Final
Blood/Venous No Growth - Final Report
10/24/23 04:58 Blood Culture - Final
Blood/Venous No Growth - Final Report
10/21/23 18:01 Blood Culture - Final
Blood/Venous S aureus-Methicillin Sensitive
Gram Stain - Final
10/21/23 13:36 Blood Culture - Final
Blood/Venous S aureus-Methicillin Sensitive
Gram Stain - Final
10/23/23 09:43 Blood Culture - Final
Blood/Venous No Growth - Final Report
10/23/23 08:29 Blood Culture - Final
Blood/Venous No Growth - Final Report
10/21/23 20:07 MRSA Screen - Final
Nose No Methicillin Resistant Staphylococcus aureus isolated.
10/21/23 13:36 Influenza Types A & B (JODI) - Final
Nasal Swab Negative for Influenza A & B, NAAT
Negative results must be combined with clinical observations
and patient history.
Nucleic Acid Amplification test (NAAT)performed on the
[employer] ID NOW platform.
--- NOTE | 2023-10-30 15:53 | CM ---
Spoke with patient in room.
As per CM note [facility] was interested but pt would need to switch to pill form of Methadone.
Pt agreed to changing to po if needed.
Psychiatry involved.
PLAN Possible SNF
[2023-10-30 16:00] VITALS: BP 92/65
--- NOTE | 2023-10-30 17:21 | W.PN.HOSP.TC ---
Today's Communication/Plan
-
IV antibiotics through 11/02.
Placement
Assessment / Plan
Assessment / Plan
Assessment/Plan
Severe Sepsis secondary to RLE Cellulitis secondary to Non-Healing Wound
Staph aureus bacteremia prior history of MRSA/presently with MSSA and blood
-Check Foot MRI as concern for possible underlying osteomyelitis/MRI not showing bone involvement
-Check Echo TTE no vegetation seen
-Continue cefazolin/MSSA bacteremia
-Consult Wound Care appreciated
-Consult Podiatry appreciated
-History of MRSA/MRSA screen here negative/vancomycin DC'd
-ID has narrowed to cefazolin
-Initial blood culture positive for MSSA all subsequent cultures thus far no growth plan is for antibiotic therapy through November 02
Acute Kidney Injury
-Continue IVFs
-Recheck labs in AM/creatinine dropped from 1.5-1.3>> now 0.8
-Acute kidney injury improved with IV fluids.
Anemia/pancytopenia?
-Leukopenia on presentation and initial hemoglobin 13.2>>> now 9.8 >> 10.7
-Thrombocytopenia/unclear baseline we will have to monitor with DVT prophylaxis and defer further chemical prophylaxis
-HIV negative
Seizure Disorder
-Continue divalproex - Check level
Anxiety/Auditory Hallucinations
-Patient from [facility]
-Continue regimen clonazepam, olanzapine, sertraline and trazodone as prior to admission
-Psychiatry following/issue at discharge will be finding a appropriate psych facility and whether by then still require IV antibiotic
Opioid Dependence
-Continue methadone as prior to admission
-Weaned off Zyprexa with transition to Risperdal.� Continue Risperdal, will attempt to reduce dose to 1 mg at bedtime and monitor closely, could come back to 2 mg if required
-Continue Zoloft and trazodone
Tobacco Use Disorder
-Encourage smoking cessation
-Continue nicotine patch
DVT proph: Lovenox
Code Status: Full Code
Anticipated Discharge: 24 - 48 hours
Subjective/Interval History
-
Date of Service: October 30, 2023
Objective Data
-
Vital Signs:
Vital Signs
Temp Pulse Resp BP Pulse Ox
97.4 F 65 17 92/65 95
10/30/23 16:00 10/30/23 16:00 10/30/23 16:00 10/30/23 16:00 10/30/23 16:00
I&O
10/29/23 10/30/23 10/31/23
06:59 06:59 06:59
Intake Total 240 / 240 600 / 600
Output Total 1550 / 1550 625 / 625
Balance -1310 / -1310 -25 / -25
Physical Exam
-
General: Well Developed and No Apparent Distress
HEENT: Normocephalic, Atraumatic and Moist Mucous Membranes
Respiratory: Clear to Auscultation
Cardiac: Regular Rhythm and S1/S2; Negative Murmur, Rub or Gallop
GI: Soft, Nontender, Nondistended and Normal Bowel Sounds; Negative Organomegaly
Rectal: Deferred by Provider
Musculoskeletal: No Clubbing, No Cyanosis and No Edema
Skin: Negative Rash
Neuro: Nonfocal/Grossly Intact
[2023-10-30] MEDS: LOVENOX 40 MG SC (18:11)
[2023-10-30] MEDS: DESYREL 75 MG PO (21:01)
[2023-10-30] MEDS: RISPERDAL 1 MG PO (21:02)
[2023-10-30] MEDS: DEPAKOTE (12 HR RELEASE) 1000 MG PO (21:02)
[2023-10-31 00:25] VITALS: BP 112/65
[2023-10-31] MEDS: ANCEF 10 IV ×3 (03:23→19:55)
[2023-10-31 08:10] VITALS: BP 107/70
[2023-10-31] MEDS: ZOLOFT 100 MG PO ×2 (08:10→21:31)
[2023-10-31] MEDS: NEURONTIN 100 MG PO (08:10)
[2023-10-31] MEDS: DEPAKOTE (12 HR RELEASE) 250 MG PO (08:10)
[2023-10-31] MEDS: METHADONE 100 MG/10 ML 140 MG PO (08:11)
[2023-10-31] MEDS: MIRALAX PO (08:11)
[2023-10-31] MEDS: PROTONIX 40 MG PO (08:16)
[2023-10-31] MEDS: NICODERM TRANSDERMAL 21 MG TRANSDERM (08:16)
[2023-10-31] MEDS: KLONOPIN 0.5 MG PO ×4 (08:16→21:31)
--- NOTE | 2023-10-31 11:44 | W.PN.HOSP.TC ---
Addendum entered and electronically signed by Kamran Ladd MD 10/31/23 16:33:
Patient seen and examined
Discussed with resident
Impression/plan:
Sepsis secondary to right lower extremity cellulitis with MSSA bacteremia
Plan is to complete 2 weeks of IV antibiotics/Ancef
Opiate use disorder.
Altered mental status/TME upon admission resolved and back to baseline
Continue methadone
Placement to [facility] facility pending bed availability and insurance authorization.
Original Note:
Today's Communication/Plan
-
IV antibiotics through 11/02.
Placement
Assessment / Plan
Assessment / Plan
Assessment/Plan
Severe Sepsis secondary to RLE Cellulitis secondary to Non-Healing Wound
Staph aureus bacteremia prior history of MRSA/presently with MSSA and blood
-Check Foot MRI as concern for possible underlying osteomyelitis/MRI not showing bone involvement
-Check Echo TTE no vegetation seen
-Continue cefazolin/MSSA bacteremia
-Consult Wound Care appreciated
-Consult Podiatry appreciated
-History of MRSA/MRSA screen here negative/vancomycin DC'd
-ID has narrowed to cefazolin
-Initial blood culture positive for MSSA all subsequent cultures thus far no growth plan is for antibiotic therapy through November 02
Acute Kidney Injury
-Continue IVFs
-Recheck labs in AM/creatinine dropped from 1.5-1.3>> now 0.8
-Acute kidney injury improved with IV fluids.
Anemia/pancytopenia?
-Leukopenia on presentation and initial hemoglobin 13.2>>> now 9.8 >> 10.7
-Thrombocytopenia/unclear baseline we will have to monitor with DVT prophylaxis and defer further chemical prophylaxis
-HIV negative
Seizure Disorder
-Continue divalproex - Check level
Anxiety/Auditory Hallucinations
-Patient from [facility]
-Continue regimen clonazepam, olanzapine, sertraline and trazodone as prior to admission
-Psychiatry following/issue at discharge will be finding a appropriate psych facility and whether by then still require IV antibiotic
Opioid Dependence
-Continue methadone as prior to admission
-Weaned off Zyprexa with transition to Risperdal.� Continue Risperdal, will attempt to reduce dose to 1 mg at bedtime and monitor closely, could come back to 2 mg if required
-Continue Zoloft and trazodone
Tobacco Use Disorder
-Encourage smoking cessation
-Continue nicotine patch
DVT proph: Lovenox
Code Status: Full Code
Anticipated Discharge: 24 - 48 hours
Subjective/Interval History
-
Date of Service: October 31, 2023
Objective Data
-
Vital Signs:
Vital Signs
Temp Pulse Resp BP Pulse Ox
98.3 F 63 16 107/70 98
10/31/23 08:10 10/31/23 08:10 10/31/23 08:10 10/31/23 08:10 10/31/23 08:10
I&O
10/30/23 10/31/23 11/01/23
06:59 06:59 06:59
Intake Total 600 / 600 1560 / 1560
Output Total 625 / 625 2175 / 2175
Balance -25 / -25 -615 / -615
Physical Exam
-
General: Well Developed and Well Nourished
HEENT: Normocephalic, Atraumatic and Moist Mucous Membranes
Respiratory: Clear to Auscultation
Cardiac: Regular Rhythm and S1/S2; Negative Murmur, Rub or Gallop
GI: Soft, Nontender, Nondistended and Normal Bowel Sounds; Negative Organomegaly
Rectal: Deferred by Provider
Musculoskeletal: No Clubbing, No Cyanosis and No Edema
Skin: Negative Rash
Neuro: Nonfocal/Grossly Intact
--- NOTE | 2023-10-31 11:48 | W.PN.ID1 ---
Date of Service
Date of Service: October 31, 2023
Today's Communication
- continue cefazolin x 2 weeks through 11/02 - heard back from pillowcase maker that IV antibiotics are not preventing discharge plan - rather wound care and ambulation are ongoing issues
- Will follow peripherally, please call if concerns arise
Assessment / Plan
S aureus bacteremia - cleared
Cellulitis -resolved
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
H/o S aureus bacteremia - R hip septic joint s/p replacement
PATRICIA, Pancytopenia
Seizure Disorder - on divalproex
Remote history of IVDU
- continue cefazolin x 2 weeks through 11/02 - heard back from pillowcase maker that IV antibiotics are not preventing discharge plan - rather wound care and ambulation are ongoing issues
- recommend follow up with podiatry - to optimize footwear
- Will follow peripherally, please call if concerns arise
Chief Complaint
-: Fever and Bacteremia
Subjective / Review of Systems
afebrile
bp stable
tolerating current therapies
Vital Signs / Physical Exam
Vital Signs
Vital Signs
Temp Pulse Resp BP Pulse Ox
98.3 F 63 16 107/70 98
10/31/23 08:10 10/31/23 08:10 10/31/23 08:10 10/31/23 08:10 10/31/23 08:10
Physical Exam
Constitutional: No Acute Distress
Cardiovascular: Regular Rate and S1/S2; Negative Murmur or Rub
Pulmonary: Clear and Symmetric; Negative Wheezes or Rales
Gastrointestinal: Soft, Non Tender, Non Distended and Normal Bowel Sounds
Skin: Warm and Dry; Negative Rash or Jaundice
Wound: Other (R foot callous along the 1st medial MTP joint, no erythema or fluctuance)
Objective Data
Lab Data
Lab Results
10/26/23 05:35
10/26/23 05:35
PT 16.4 Sec (11.4-14.6) H 10/21/23 14:03
INR 1.34 10/21/23 14:03
APTT 30.2 Sec (23.4-35.0) 10/21/23 14:03
Estimated Creat Clear > 125 ml/min 10/26/23 05:35
Lactic Acid 1.6 mmol/L (0.7-2.0) 10/21/23 13:36
Total Bilirubin 0.5 mg/dl (0.2-1.3) 10/22/23 04:50
AST 28 U/L (17-59) 10/22/23 04:50
ALT < 10 U/L (0-50) 10/22/23 04:50
Alkaline Phosphatase 52 U/L (38-126) 10/22/23 04:50
Most recent labs reviewed.
Micro Results:
10/26/23 05:35 Blood Culture - Final
Blood/Venous No Growth - Final Report
10/25/23 04:51 Blood Culture - Final
Blood/Venous No Growth - Final Report
10/24/23 04:58 Blood Culture - Final
Blood/Venous No Growth - Final Report
10/21/23 18:01 Blood Culture - Final
Blood/Venous S aureus-Methicillin Sensitive
Gram Stain - Final
10/21/23 13:36 Blood Culture - Final
Blood/Venous S aureus-Methicillin Sensitive
Gram Stain - Final
10/23/23 09:43 Blood Culture - Final
Blood/Venous No Growth - Final Report
10/23/23 08:29 Blood Culture - Final
Blood/Venous No Growth - Final Report
10/21/23 20:07 MRSA Screen - Final
Nose No Methicillin Resistant Staphylococcus aureus isolated.
10/21/23 13:36 Influenza Types A & B (JODI) - Final
Nasal Swab Negative for Influenza A & B, NAAT
Negative results must be combined with clinical observations
and patient history.
Nucleic Acid Amplification test (NAAT)performed on the
[employer] ID NOW platform.
--- NOTE | 2023-10-31 12:40 | CM ---
Spoke with [facility] Pt liaison . She requested an update via care port for [facility] to be sent . Informed her Psychiatry recommended SNf prior to dc home.Referral sent.
Nadine also aware IV antibiotic needed till 11/03/23.
As per CM note pt would need to switch to pill form of Methadone.Pt agreed to changing to po if needed.
He needs auth with [facility].
PLAN To [facility] if accepted and auth obtained
--- NOTE | 2023-10-31 14:34 | W.PN.UPDATE ---
Update Note
Progress Note Update
patient seen chart reviewed. discussed with nursing. patient does continue overall to feel better psychiatrically but he has a moment this am when he started to think about those he has lost family and friends. we talked about him trying to build
a social network through NA or AA or even volunteering with the [employer] when he is physically better. he feels all of the above may be doable. no hcanges made in psych meds. snf is likely disposition. we also talked about how patient's foot
wound got so bad. he is hopeful that when he returns home he can engage in some PT to help with mobility etc . will follow.
[2023-10-31 14:57] VITALS: BP 87/50
[2023-10-31] MEDS: LOVENOX 40 MG SC (17:26)
[2023-10-31] MEDS: DESYREL 75 MG PO (21:29)
[2023-10-31] MEDS: DEPAKOTE (12 HR RELEASE) 1000 MG PO (21:30)
[2023-10-31] MEDS: RISPERDAL 1 MG PO (21:31)
[2023-10-31 23:00] VITALS: BP 102/62
[2023-11-01] MEDS: ANCEF 10 IV ×3 (04:09→19:49)
[2023-11-01 07:45] VITALS: BP 110/71
--- NOTE | 2023-11-01 07:49 | W.PN.HOSP.TC ---
Today's Communication/Plan
-
see bold
Assessment / Plan
Assessment / Plan
Assessment/Plan
Severe Sepsis secondary to RLE Cellulitis secondary to Non-Healing Wound
Staph aureus bacteremia prior history of MRSA/presently with MSSA and blood
-Appreciate podiatry and wound care
-Foot MRI not showing bone involvement, TTE no vegetation seen
-Initial blood culture positive for MSSA all subsequent cultures thus far no growth plan is for antibiotic therapy through November 02
-History of MRSA/MRSA screen here negative/vancomycin DC'd
-ID recommends IV Ancef for 2 weeks through 11/02
-Needs SNF for discharge due to wound care and ambulation issues
Acute Kidney Injury
-Continue IVFs
-Recheck labs in AM/creatinine dropped from 1.5-1.3>> now 0.8
-Acute kidney injury resolved s/p IV fluids.
Anemia/pancytopenia?
-Leukopenia on presentation and initial hemoglobin 13.2>>> now 9.8 >> 10.7
-Thrombocytopenia/unclear baseline we will have to monitor with DVT prophylaxis and defer further chemical prophylaxis
-HIV negative
Seizure Disorder
-Continue divalproex - Check level
Anxiety/Auditory Hallucinations
-Patient from [facility]
-Continue regimen clonazepam, olanzapine, sertraline and trazodone as prior to admission
-Psychiatry following/issue at discharge will be finding a appropriate psych facility and whether by then still require IV antibiotic
Opioid Dependence
-Continue methadone as prior to admission
-Weaned off Zyprexa with transition to Risperdal.� Continue Risperdal, will attempt to reduce dose to 1 mg at bedtime and monitor closely, could come back to 2 mg if required
-Continue Zoloft and trazodone
Tobacco Use Disorder
-Encourage smoking cessation
-Continue nicotine patch
DVT proph: SQ Lovenox
Code Status: Full Code
Physical Exam
Constitutional: No Acute Distress
Cardiovascular: Regular Rate and S1/S2; Negative Murmur or Rub
Pulmonary: Clear and Symmetric; Negative Wheezes or Rales
Gastrointestinal: Soft, Non Tender, Non Distended and Normal Bowel Sounds
Skin: Warm and Dry; Negative Rash or Jaundice
Wound: Other (R foot callous along the 1st medial MTP joint, no erythema or fluctuance)
Anticipated Discharge: 24 - 48 hours
Subjective/Interval History
-
Date of Service: November 01, 2023
Patient reports feeling better. He has chronic hip pain. No chest pain, no shortness of breath.
Objective Data
-
Vital Signs:
Vital Signs
Temp Pulse Resp BP Pulse Ox
98 F 64 16 102/62 95
10/31/23 23:00 10/31/23 23:00 10/31/23 23:00 10/31/23 23:00 10/31/23 23:00
I&O
10/31/23 11/01/23 11/02/23
06:59 06:59 06:59
Intake Total 1560 / 1560 720 / 720
Output Total 2175 / 2175 1550 / 1550
Balance -615 / -615 -830 / -830
[2023-11-01] MEDS: NICODERM TRANSDERMAL 21 MG TRANSDERM (09:41)
[2023-11-01] MEDS: METHADONE 100 MG/10 ML 140 MG PO (09:41)
[2023-11-01] MEDS: DEPAKOTE (12 HR RELEASE) 250 MG PO (09:42)
[2023-11-01] MEDS: NEURONTIN 100 MG PO (09:42)
[2023-11-01] MEDS: PROTONIX 40 MG PO (09:42)
[2023-11-01] MEDS: ZOLOFT 100 MG PO ×2 (09:42→20:41)
[2023-11-01] MEDS: KLONOPIN 0.5 MG PO ×4 (09:43→20:44)
[2023-11-01] MEDS: MIRALAX PO (09:53)
--- NOTE | 2023-11-01 13:10 | CM ---
Addendum entered by Melyssa Pretty 11/01/23 13:27:
Await updated therapy notes to initiate auth.
Patient will be an [facility] admission.
Addendum entered by Melyssa Pretty 11/01/23 13:12:
Liz Pelletier NPI #[id number]
Dr Blair NPI # [id number]
Original Note:
TC to Nadine/Liz Pelletier, she will accept patient for short term rehab.
Await NPI numbers.
Patient will require insurance authorization.
Plan: skilled rehab when medically stable.
[2023-11-01 14:20] VITALS: BP 125/67; PULSE 63; O2SAT 95
[2023-11-01 15:45] VITALS: BP 97/66
[2023-11-01] MEDS: LOVENOX 40 MG SC (17:23)
--- NOTE | 2023-11-01 17:51 | W.PN.UPDATE ---
Update Note
Progress Note Update
43 y/o man with CP admitted from [facility] due to foot infection. He is in the psych hospital due to recurrence of psychotic depression. His mood is improved and hallucinations have ended. Still may have psychotic thoughts about his home
being where the voices come from. Sleeps well. Appetite good (was eating dinner while I was in room). Seems to be stabilized on antidepressants and risperidone 1 mg. Psychiatry will follow.
[2023-11-01] MEDS: FLUSH (NSS) 1 FLUSH IV (19:50)
[2023-11-01] MEDS: DESYREL 75 MG PO (20:40)
[2023-11-01] MEDS: RISPERDAL 1 MG PO (20:41)
[2023-11-01] MEDS: DEPAKOTE (12 HR RELEASE) 1000 MG PO (20:44)
[2023-11-01 23:41] VITALS: BP 110/63
[2023-11-02] MEDS: ANCEF 10 IV ×3 (04:47→19:37)
[2023-11-02 07:45] VITALS: BP 114/69
[2023-11-02] MEDS: PROTONIX 40 MG PO (08:30)
[2023-11-02] MEDS: NEURONTIN 100 MG PO (08:30)
[2023-11-02] MEDS: NICODERM TRANSDERMAL 21 MG TRANSDERM (08:30)
[2023-11-02] MEDS: DEPAKOTE (12 HR RELEASE) 250 MG PO (08:30)
[2023-11-02] MEDS: KLONOPIN 0.5 MG PO ×4 (08:30→20:59)
[2023-11-02] MEDS: ZOLOFT 100 MG PO ×2 (08:30→19:37)
[2023-11-02] MEDS: METHADONE 100 MG/10 ML 140 MG PO (08:31)
[2023-11-02] MEDS: MIRALAX 17 GRAMS PO (08:49)
--- NOTE | 2023-11-02 09:45 | W.PN.HOSP.TC ---
Today's Communication/Plan
-
Discharge to rehab with bed available
Assessment / Plan
Assessment / Plan
Assessment/Plan
Severe Sepsis secondary to RLE Cellulitis secondary to Non-Healing Wound
Staph aureus bacteremia prior history of MRSA/presently with MSSA and blood
-Appreciate podiatry and wound care
-Foot MRI not showing bone involvement, TTE no vegetation seen
-Initial blood culture positive for MSSA all subsequent cultures thus far no growth plan is for antibiotic therapy through November 02
-History of MRSA/MRSA screen here negative/vancomycin DC'd
-ID recommends IV Ancef for 2 weeks through 11/02
-Needs SNF for discharge due to wound care and ambulation issues
Acute Kidney Injury
-Continue IVFs
-Recheck labs in AM/creatinine dropped from 1.5-1.3>> now 0.8
-Acute kidney injury resolved s/p IV fluids.
Anemia/pancytopenia?
-Leukopenia on presentation and initial hemoglobin 13.2>>> now 9.8 >> 10.7
-Thrombocytopenia/unclear baseline we will have to monitor with DVT prophylaxis and defer further chemical prophylaxis
-HIV negative
Seizure Disorder
-Continue divalproex - Check level
Anxiety/Auditory Hallucinations
-Patient from [facility]
-Continue regimen clonazepam, olanzapine, sertraline and trazodone as prior to admission
-Psychiatry following/issue at discharge will be finding a appropriate psych facility and whether by then still require IV antibiotic
Opioid Dependence
-Continue methadone as prior to admission
-Weaned off Zyprexa with transition to Risperdal.� Continue Risperdal, will attempt to reduce dose to 1 mg at bedtime and monitor closely, could come back to 2 mg if required
-Continue Zoloft and trazodone
Tobacco Use Disorder
-Encourage smoking cessation
-Continue nicotine patch
DVT proph: SQ Lovenox
Code Status: Full Code
Physical Exam
Constitutional: No Acute Distress
Cardiovascular: Regular Rate and S1/S2; Negative Murmur or Rub
Pulmonary: Clear and Symmetric; Negative Wheezes or Rales
Gastrointestinal: Soft, Non Tender, Non Distended and Normal Bowel Sounds
Skin: Warm and Dry; Negative Rash or Jaundice
Wound: Other (R foot callous along the 1st medial MTP joint, no erythema or fluctuance)
Anticipated Discharge: Within 24 hours
Subjective/Interval History
-
Date of Service: November 02, 2023
No chest pain, no shortness of breath. No fever, no abdominal pain.
Objective Data
-
Vital Signs:
Vital Signs
Temp Pulse Resp BP Pulse Ox
97.5 F 61 14 114/69 96
11/02/23 07:45 11/02/23 07:45 11/02/23 07:45 11/02/23 07:45 11/02/23 07:45
I&O
11/01/23 11/02/23 11/03/23
06:59 06:59 06:59
Intake Total 720 / 720 1440 / 1440
Output Total 1550 / 1550 1050 / 1050
Balance -830 / -830 390 / 390
--- NOTE | 2023-11-02 14:15 | W.PN.UPDATE ---
Update Note
Progress Note Update
43 y/o single man admitted 10/21/23 due to RLE cellulitis from [facility] where he was being treated for psychotic depression with suicidal ideation. 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
coma. Is on Methadone 140 mg. for pain; had iatrogenic addiction,but also said that he had a large group of friends who all from drugs.
He was resting in bed watching television. Alert and oriented. Affect somewhat flat. He is still of the belief that someone who previously lived in his apartment in [place] has the adams and has put cameras in the apartment and may taint his food.
He denies ever having thoughts like this in other places he has lived. Is on disability and has [employer] housing. Unemployed.
His current medications are: Risperdal 1 mg. HS; Klonopin 0.5 mg. QID; Depakote 250/1000 for seizures, Neurontin 100 mg. QD, methadone 140 mg. QD, Nicotine patch, Zoloft 100 mg. BID; trazodone 75 mg. HS and Protonix and Ancef.
While I am not making changes today, he might need a higher dose of Risperdal for delusional beliefs.
Psychiatry will follow.
[2023-11-02 15:40] VITALS: BP 97/70
[2023-11-02] MEDS: LOVENOX 40 MG SC (17:29)
[2023-11-02] MEDS: DEPAKOTE (12 HR RELEASE) 1000 MG PO (20:57)
[2023-11-02] MEDS: DESYREL 75 MG PO (20:57)
[2023-11-02] MEDS: RISPERDAL 1 MG PO (21:00)
[2023-11-02 23:29] VITALS: BP 110/74
[2023-11-03] MEDS: ANCEF 10 IV ×3 (03:33→20:00)
[2023-11-03 08:00] VITALS: BP 104/60
[2023-11-03] MEDS: NICODERM TRANSDERMAL 21 MG TRANSDERM (08:52)
[2023-11-03] MEDS: METHADONE 100 MG/10 ML 140 MG PO (08:52)
[2023-11-03] MEDS: NEURONTIN 100 MG PO (08:55)
[2023-11-03] MEDS: PROTONIX 40 MG PO (08:55)
[2023-11-03] MEDS: DEPAKOTE (12 HR RELEASE) 250 MG PO (08:55)
[2023-11-03] MEDS: MIRALAX PO (08:55)
[2023-11-03] MEDS: KLONOPIN 0.5 MG PO ×4 (08:55→21:07)
[2023-11-03] MEDS: ZOLOFT 100 MG PO ×2 (08:55→21:03)
[2023-11-03 10:42] VITALS: BP 109/69; PULSE 69
--- NOTE | 2023-11-03 13:04 | W.PN.HOSP.TC ---
Addendum entered and electronically signed by Kamran Ladd MD 11/03/23 17:46:
Patient seen and examined
Discussed with resident
Impression/plan:
Severe sepsis with MSSA bacteremia.
Workup negative for endovascular infection/endocarditis
Completing course of Ancef through 11/02.
Acute kidney injury improved.
Opioid dependence.
Mental status stable.
On methadone, Risperdal.
Ongoing disposition to intermediate facility
Patient with sepsis and bacteremia, hospital course complicated with acute kidney injury and TME with currently improved mental status back to baseline. Given significant deconditioning patient will required further debilitation in intermediate
facility with anticipated length of stay less than 30 days.
Original Note:
Today's Communication/Plan
-
Discharge to rehab
Assessment / Plan
Assessment / Plan
Assessment/Plan
Severe Sepsis secondary to RLE Cellulitis secondary to Non-Healing Wound
Staph aureus bacteremia prior history of MRSA/presently with MSSA and blood
-Appreciate podiatry and wound care
-Foot MRI not showing bone involvement, TTE no vegetation seen
-Initial blood culture positive for MSSA all subsequent cultures thus far no growth plan is for antibiotic therapy through November 02
-History of MRSA/MRSA screen here negative/vancomycin DC'd
-ID recommends IV Ancef for 2 weeks through 11/02
-Needs SNF for discharge due to wound care and ambulation issues
Acute Kidney Injury
-Continue IVFs
-Recheck labs in AM/creatinine dropped from 1.5-1.3>> now 0.8
-Acute kidney injury resolved s/p IV fluids.
Anemia/pancytopenia?
-Leukopenia on presentation and initial hemoglobin 13.2>>> now 9.8 >> 10.7
-Thrombocytopenia/unclear baseline we will have to monitor with DVT prophylaxis and defer further chemical prophylaxis
-HIV negative
Seizure Disorder
-Continue divalproex - Check level
Anxiety/Auditory Hallucinations
-Patient from [facility]
-Continue regimen clonazepam, olanzapine, sertraline and trazodone as prior to admission
-Psychiatry following/issue at discharge will be finding a appropriate psych facility and whether by then still require IV antibiotic
Opioid Dependence
-Continue methadone as prior to admission
-Weaned off Zyprexa with transition to Risperdal.� Continue Risperdal, will attempt to reduce dose to 1 mg at bedtime and monitor closely, could come back to 2 mg if required
-Continue Zoloft and trazodone
Tobacco Use Disorder
-Encourage smoking cessation
-Continue nicotine patch
DVT proph: SQ Lovenox
Code Status: Full Code
Anticipated Discharge: Within 24 hours
Subjective/Interval History
-
Date of Service: November 03, 2023
Objective Data
-
Vital Signs:
Vital Signs
Temp Pulse Resp BP Pulse Ox
98.0 F 66 14 104/60 96
11/03/23 08:00 11/03/23 08:00 11/03/23 08:00 11/03/23 08:00 11/03/23 08:00
I&O
11/02/23 11/03/23 11/04/23
06:59 06:59 06:59
Intake Total 1440 / 1440 1440 / 1440
Output Total 1050 / 1050 1175 / 1175
Balance 390 / 390 265 / 265
Physical Exam
-
General: Well Developed and No Apparent Distress
HEENT: Normocephalic, Atraumatic and Moist Mucous Membranes
Respiratory: Clear to Auscultation
Cardiac: Regular Rhythm and S1/S2; Negative Murmur, Rub or Gallop
GI: Soft, Nontender, Nondistended and Normal Bowel Sounds; Negative Organomegaly
Rectal: Deferred by Provider
Musculoskeletal: No Clubbing and No Cyanosis
Skin: Warm
Neuro: Nonfocal/Grossly Intact
--- NOTE | 2023-11-03 14:40 | CM ---
evaluation manager spoke with [facility] admissions and they can accept patient NPI for [facility] [id number], Dr Blair, , supervisor case loading contacted [employer] medicaid [phone] and spoke with A and pending
Auth is [id number], all clinicals faxed to [phone]. evaluation manager reached out to physician to document exemption on patient's chart (patient has met criteria for 30 day exemption).
Plan; Skilled placement at [facility] awaiting Auth, patient has been updated.
--- NOTE | 2023-11-03 15:41 | W.PN.UPDATE ---
Update Note
Progress Note Update
Pt seen, chart reviewed. Pt sitting in chair, alert, calm, cooperative. He acknowledges some paranoid thoughts 'when I'm in my apartment.' Denies any paranoia here. Pt cooperative with care, states he hopes to complete course of IV abx today, is
agreeable to medical rehab. No agitation. Denies SI, affect is stable.
Imp: MDD with psychotic features- resolving. Pt stable for discharge to SNF
�� � � Opioid Dependence, on Methadone Maintenance tx
Rec:� Continue Risperidone at current dose, continue Zoloft (increased just prior to admission), continue current psychotropic meds
�� � � will follow
[2023-11-03] MEDS: LOVENOX 40 MG SC (17:04)
[2023-11-03 17:15] VITALS: BP 126/86
[2023-11-03] MEDS: DESYREL 75 MG PO (21:03)
[2023-11-03] MEDS: DEPAKOTE (12 HR RELEASE) 1000 MG PO (21:07)
[2023-11-03] MEDS: RISPERDAL 1 MG PO (21:07)
[2023-11-03 23:07] VITALS: BP 110/71
[2023-11-04 07:50] VITALS: BP 111/71
[2023-11-04] MEDS: NICODERM TRANSDERMAL 21 MG TRANSDERM (08:15)
[2023-11-04] MEDS: NEURONTIN 100 MG PO (08:15)
[2023-11-04] MEDS: DEPAKOTE (12 HR RELEASE) 250 MG PO (08:15)
[2023-11-04] MEDS: KLONOPIN 0.5 MG PO ×4 (08:15→21:09)
[2023-11-04] MEDS: METHADONE 100 MG/10 ML 140 MG PO (08:15)
[2023-11-04] MEDS: ZOLOFT 100 MG PO ×2 (08:15→20:03)
[2023-11-04] MEDS: PROTONIX 40 MG PO (08:15)
[2023-11-04] MEDS: MIRALAX 17 GRAMS PO (08:16)
--- NOTE | 2023-11-04 11:18 | W.PN.UPDATE ---
Update Note
Progress Note Update
Patient seen at bedside, chart reviewed, discussed with staff. Mr. Cabrera is resting calmly in bed, cooperative and pleasant, He tells me he feels he is ready to move on to rehab to get stronger so her can go home. He again expresses some paranoia
about his home but does not explain any further. He tells me he longer he has been away from home, the better he feels. He denies ay SI/SB. No AH.VH reported.
Impression/Plan:� Major depressive disorder with psychotic features - Continue with Zoloft at 100mg BID and Trazodone 75mg, klonopin 0.5mg QID, & Risperdal 1mg HS; Opioid Dependence, on Methadone Maintenance and followed at [facility].
--- NOTE | 2023-11-04 12:47 | W.PN.HOSP.TC ---
Addendum entered and electronically signed by Kamran Ladd MD 11/04/23 16:53:
Patient seen and examined
Discussed with resident with case resource manager
MSSA bacteremia
Completed course of antibiotics
Medically stable for placement to [facility] facility pending insurance authorization
Original Note:
Today's Communication/Plan
-
Discharge to [facility] facility
Assessment / Plan
Assessment / Plan
Assessment/Plan
Severe Sepsis secondary to RLE Cellulitis secondary to Non-Healing Wound
Staph aureus bacteremia prior history of MRSA/presently with MSSA and blood
-Appreciate podiatry and wound care
-Foot MRI not showing bone involvement, TTE no vegetation seen
-Initial blood culture positive for MSSA all subsequent cultures thus far no growth plan is for antibiotic therapy through November 02
-History of MRSA/MRSA screen here negative/vancomycin DC'd
-Workup negative for endovascular infection/endocarditis
-Completing course of Ancef through 11/02.
Acute Kidney Injury
-Continue IVFs
-Recheck labs in AM/creatinine dropped from 1.5-1.3>> now 0.8
-Acute kidney injury resolved s/p IV fluids.
Anemia/pancytopenia?
-Leukopenia on presentation and initial hemoglobin 13.2>>> now 9.8 >> 10.7
-Thrombocytopenia/unclear baseline we will have to monitor with DVT prophylaxis and defer further chemical prophylaxis
-HIV negative
Seizure Disorder
-Continue divalproex - Check level
Anxiety/Auditory Hallucinations
-Patient from [facility]
-Continue regimen clonazepam, olanzapine, sertraline and trazodone as prior to admission
-Psychiatry following/issue at discharge will be finding a appropriate psych facility and whether by then still require IV antibiotic
Opioid Dependence
-Continue methadone as prior to admission
-Weaned off Zyprexa with transition to Risperdal.� Continue Risperdal, will attempt to reduce dose to 1 mg at bedtime and monitor closely, could come back to 2 mg if required
-Continue Zoloft and trazodone
-Mental status stable.
Tobacco Use Disorder
-Encourage smoking cessation
-Continue nicotine patch
DVT proph: SQ Lovenox
Code Status: Full Code
Anticipated Discharge: Within 24 hours
Subjective/Interval History
-
Date of Service: November 04, 2023
Objective Data
-
Vital Signs:
Vital Signs
Temp Pulse Resp BP Pulse Ox
97.9 F 66 18 111/71 97
11/04/23 07:50 11/04/23 07:50 11/04/23 07:50 11/04/23 07:50 11/04/23 07:50
I&O
11/03/23 11/04/23 11/05/23
06:59 06:59 06:59
Intake Total 1440 / 1440 1920 / 1920
Output Total 1175 / 1175 1625 / 1625
Balance 265 / 265 295 / 295
Physical Exam
-
General: Well Developed and No Apparent Distress
HEENT: Normocephalic, Atraumatic and Moist Mucous Membranes
Respiratory: Clear to Auscultation
Cardiac: Regular Rhythm and S1/S2; Negative Murmur, Rub or Gallop
GI: Soft, Nontender, Nondistended and Normal Bowel Sounds; Negative Organomegaly
Rectal: Deferred by Provider
Musculoskeletal: No Clubbing, No Cyanosis and No Edema
Skin: Negative Rash
Neuro: Nonfocal/Grossly Intact
--- NOTE | 2023-11-04 14:17 | CM ---
called [facility] to check on auth. Was told that they did not receive fax sent yesterday. Re faxed and received call that [facility] received the fax.
[2023-11-04 15:45] VITALS: BP 112/74
[2023-11-04] MEDS: LOVENOX 40 MG SC (17:08)
[2023-11-04] MEDS: DESYREL 75 MG PO (21:08)
[2023-11-04] MEDS: DEPAKOTE (12 HR RELEASE) 1000 MG PO (21:08)
[2023-11-04] MEDS: RISPERDAL 1 MG PO (21:09)
[2023-11-04 23:25] VITALS: BP 121/78
[2023-11-05 07:30] VITALS: BP 108/71
[2023-11-05] MEDS: MIRALAX 17 GRAMS PO (08:14)
[2023-11-05] MEDS: KLONOPIN 0.5 MG PO ×4 (08:14→21:30)
[2023-11-05] MEDS: NICODERM TRANSDERMAL 21 MG TRANSDERM (08:14)
[2023-11-05] MEDS: PROTONIX 40 MG PO (08:14)
[2023-11-05] MEDS: ZOLOFT 100 MG PO ×2 (08:14→21:28)
[2023-11-05] MEDS: NEURONTIN 100 MG PO (08:14)
[2023-11-05] MEDS: DEPAKOTE (12 HR RELEASE) 250 MG PO (08:14)
[2023-11-05] MEDS: METHADONE 100 MG/10 ML 140 MG PO (09:08)
--- NOTE | 2023-11-05 11:05 | CM ---
front desk manager reviewed patient's chart and received a denial from patient's insurance that [facility] are out of network with patient's insurance and therefor insurance will not approve patient for skilled placement, community case manager reached out to
patient's insurance [phone], to proceed with a peer to peer appeal with physician.
Plan; Peer to peer.
--- NOTE | 2023-11-05 11:36 | W.PN.HOSP.TC ---
Addendum entered and electronically signed by Kamran Ladd MD 11/05/23 17:34:
Patient seen and examined
Discussed with resident, case investigator and psychiatry.
Impression/plan:*
Resolved sepsis due to MSSA bacteremia
Completed course of IV antibiotics for 2 weeks.
Acute kidney injury resolved with IV fluids
Chronic opiate use disorder on methadone
Deconditioning.
Ongoing disposition efforts Home versus penitentiary facility
Original Note:
Today's Communication/Plan
-
Medically stable for placement to penitentiary facility pending insurance authorization
Assessment / Plan
Assessment / Plan
Assessment/Plan
Severe Sepsis secondary to RLE Cellulitis secondary to Non-Healing Wound
Staph aureus bacteremia prior history of MRSA/presently with MSSA and blood
-Appreciate podiatry and wound care
-Foot MRI not showing bone involvement, TTE no vegetation seen
-Initial blood culture positive for MSSA all subsequent cultures thus far no growth plan is for antibiotic therapy through November 02
-History of MRSA/MRSA screen here negative/vancomycin DC'd
-Workup negative for endovascular infection/endocarditis
-Completing course of Ancef through 11/02.
Acute Kidney Injury
-Continue IVFs
-Recheck labs in AM/creatinine dropped from 1.5-1.3>> now 0.8
-Acute kidney injury resolved s/p IV fluids.
Anemia/pancytopenia?
-Leukopenia on presentation and initial hemoglobin 13.2>>> now 9.8 >> 10.7
-Thrombocytopenia/unclear baseline we will have to monitor with DVT prophylaxis and defer further chemical prophylaxis
-HIV negative
Seizure Disorder
-Continue divalproex - Check level
Anxiety/Auditory Hallucinations
-Patient from [facility]
-Continue regimen clonazepam, olanzapine, sertraline and trazodone as prior to admission
-Psychiatry following/issue at discharge will be finding a appropriate psych facility and whether by then still require IV antibiotic
Opioid Dependence
-Continue methadone as prior to admission
-Weaned off Zyprexa with transition to Risperdal.� Continue Risperdal, will attempt to reduce dose to 1 mg at bedtime and monitor closely, could come back to 2 mg if required
-Continue Zoloft and trazodone
-Mental status stable.
Tobacco Use Disorder
-Encourage smoking cessation
-Continue nicotine patch
DVT proph: SQ Lovenox
Code Status: Full Code
Anticipated Discharge: Within 24 hours
Subjective/Interval History
-
Date of Service: November 05, 2023
Objective Data
-
Vital Signs:
Vital Signs
Temp Pulse Resp BP Pulse Ox
98.3 F 65 18 108/71 97
11/05/23 07:30 11/05/23 07:30 11/05/23 07:30 11/05/23 07:30 11/05/23 07:30
I&O
11/04/23 11/05/23 11/06/23
06:59 06:59 06:59
Intake Total 1920 / 1920 2880 / 2880
Output Total 1625 / 1625 1100 / 1100
Balance 295 / 295 1780 / 1780
Physical Exam
-
General: Well Developed and No Apparent Distress
HEENT: Normocephalic, Atraumatic and Moist Mucous Membranes
Respiratory: Clear to Auscultation
Cardiac: Regular Rhythm and S1/S2; Negative Murmur, Rub or Gallop
GI: Soft, Nontender, Nondistended and Normal Bowel Sounds; Negative Organomegaly
Rectal: Deferred by Provider
Musculoskeletal: No Clubbing, No Cyanosis and No Edema
Skin: Negative Rash
Neuro: Nonfocal/Grossly Intact
--- NOTE | 2023-11-05 12:01 | W.PN.UPDATE ---
Update Note
Progress Note Update
patient seen chart reviewed discussed with nursing. the patient remains here at although it appears he has been able to be dc for several days. at this point he is likely going to [facility]. he has been stable psychiatrically. no changes
made in medications today. given this fact and that his dc is likely imminent psych will sign off.
[2023-11-05 15:15] VITALS: BP 108/72
[2023-11-05] MEDS: LOVENOX 40 MG SC (17:48)
[2023-11-05] MEDS: DEPAKOTE (12 HR RELEASE) 1000 MG PO (21:28)
[2023-11-05] MEDS: DESYREL 75 MG PO (21:29)
[2023-11-05] MEDS: RISPERDAL 1 MG PO (21:31)
[2023-11-05 23:26] VITALS: BP 107/64
[2023-11-06 07:30] VITALS: BP 109/72
[2023-11-06] MEDS: KLONOPIN 0.5 MG PO ×4 (09:06→21:55)
[2023-11-06] MEDS: DEPAKOTE (12 HR RELEASE) 250 MG PO (09:06)
[2023-11-06] MEDS: NEURONTIN 100 MG PO (09:06)
[2023-11-06] MEDS: ZOLOFT 100 MG PO ×2 (09:06→20:55)
[2023-11-06] MEDS: PROTONIX 40 MG PO (09:07)
[2023-11-06] MEDS: NICODERM TRANSDERMAL 21 MG TRANSDERM (09:07)
[2023-11-06] MEDS: MIRALAX PO (09:07)
[2023-11-06] MEDS: METHADONE 100 MG/10 ML 140 MG PO (09:07)
--- NOTE | 2023-11-06 10:49 | CM ---
Addendum entered by Nadine Gee 11/06/23 13:53:
manager developmental spoke with Tonja [phone], and discussed barriers to placement and faxed over denials to .
Original Note:
manager developmental reviewed patient's chart and spoke with patient this am to provide update on progress. Patient has been accepted at [facility] however patient was denied by insurance because patient's insurance is saying that this facility is out
of network with insurance. manager developmental sent 75 referrals in [facility] and surrounding areas and patient has not been accepted at any of these facilities. Most nursing facilities are not authorized to dispense Methadone. manager developmental fiberglass boat assembly supervisor
reached out to the manager surgical at [facility] patient's insurance and they have offered to reach out and assist with placement.
Plan; Awaiting a return call from manager developmental at [facility].
[2023-11-06 14:54] VITALS: BP 107/72; PULSE 61
[2023-11-06 15:30] VITALS: BP 107/72
--- NOTE | 2023-11-06 16:11 | W.PN.HOSP.TC ---
Today's Communication/Plan
-
Medically optimized pending placement to longterm facility.
Assessment / Plan
Assessment / Plan
Assessment/Plan
Severe Sepsis secondary to RLE Cellulitis secondary to Non-Healing Wound
Staph aureus bacteremia prior history of MRSA/presently with MSSA and blood
-Appreciate podiatry and wound care
-Foot MRI not showing bone involvement, TTE no vegetation seen
-Initial blood culture positive for MSSA all subsequent cultures thus far no growth plan is for antibiotic therapy through November 02
-History of MRSA/MRSA screen here negative/vancomycin DC'd
-Workup negative for endovascular infection/endocarditis
-Completing course of Ancef through 11/02.
Acute Kidney Injury
-Continue IVFs
-Recheck labs in AM/creatinine dropped from 1.5-1.3>> now 0.8
-Acute kidney injury resolved s/p IV fluids.
Anemia/pancytopenia?
-Leukopenia on presentation and initial hemoglobin 13.2>>> now 9.8 >> 10.7
-Thrombocytopenia/unclear baseline we will have to monitor with DVT prophylaxis and defer further chemical prophylaxis
-HIV negative
Seizure Disorder
-Continue divalproex - Check level
Anxiety/Auditory Hallucinations
-Patient from [facility]
-Continue regimen clonazepam, olanzapine, sertraline and trazodone as prior to admission
-Psychiatry following/issue at discharge will be finding a appropriate psych facility and whether by then still require IV antibiotic
Opioid Dependence
-Continue methadone as prior to admission
-Weaned off Zyprexa with transition to Risperdal.� Continue Risperdal, will attempt to reduce dose to 1 mg at bedtime and monitor closely, could come back to 2 mg if required
-Continue Zoloft and trazodone
-Mental status stable.
Tobacco Use Disorder
-Encourage smoking cessation
-Continue nicotine patch
DVT proph: SQ Lovenox
Code Status: Full Code
Anticipated Discharge: Within 24 hours
Subjective/Interval History
-
Date of Service: November 06, 2023
Objective Data
-
Vital Signs:
Vital Signs
Temp Pulse Resp BP Pulse Ox
97.8 F 61 19 107/72 96
11/06/23 15:30 11/06/23 15:30 11/06/23 15:30 11/06/23 15:30 11/06/23 15:30
I&O
11/05/23 11/06/23 11/07/23
06:59 06:59 06:59
Intake Total 2880 / 2880 240 / 240 400 / 400
Output Total 1100 / 1100 600 / 600
Balance 1780 / 1780 -360 / -360 400 / 400
Physical Exam
-
General: Well Developed and No Apparent Distress
HEENT: Normocephalic, Atraumatic and Moist Mucous Membranes
Respiratory: Clear to Auscultation
Cardiac: Regular Rhythm and S1/S2; Negative Murmur, Rub or Gallop
GI: Soft, Nontender, Nondistended and Normal Bowel Sounds; Negative Organomegaly
Rectal: Deferred by Provider
Musculoskeletal: No Clubbing, No Cyanosis and No Edema
Skin: Negative Rash
Neuro: Nonfocal/Grossly Intact
[2023-11-06] MEDS: LOVENOX 40 MG SC (17:32)
[2023-11-06] MEDS: DESYREL 75 MG PO (21:51)
[2023-11-06] MEDS: DEPAKOTE (12 HR RELEASE) 1000 MG PO (21:54)
[2023-11-06] MEDS: RISPERDAL 1 MG PO (21:54)
[2023-11-07 00:07] VITALS: BP 109/66
[2023-11-07] MEDS: NICODERM TRANSDERMAL 21 MG TRANSDERM (08:20)
[2023-11-07] MEDS: NEURONTIN 100 MG PO (08:21)
[2023-11-07] MEDS: PROTONIX 40 MG PO (08:21)
[2023-11-07] MEDS: KLONOPIN 0.5 MG PO ×2 (08:21→12:02)
[2023-11-07] MEDS: MIRALAX 17 GRAMS PO (08:21)
[2023-11-07] MEDS: ZOLOFT 100 MG PO (08:22)
[2023-11-07] MEDS: DEPAKOTE (12 HR RELEASE) 250 MG PO (08:22)
[2023-11-07] MEDS: METHADONE 100 MG/10 ML 140 MG PO (08:27)
[2023-11-07 09:00] VITALS: BP 105/68
--- NOTE | 2023-11-07 11:04 | CM ---
Addendum entered by Nadine Gee 11/07/23 13:47:
Patient has been approved for 7 days skilled Auth [id number], 11/06 to 11/13, NRD 11/13, case therapist faxed over approval and script for Methadone. Patient has a w/c van orange picking supervisor for 4pm, hospital is aware of $85 cost of transport. All updates provided
to Hong at [facility] [phone].
[facility]
Report [phone]

Original Note:
Chart reviewed and call placed to Tonja at [facility], still no determination from patient's insurance, patient's insurance denied skilled placement based on the fact that the facility is out of network, 75 referrals sent and all facilities
have denied patient except for [facility], the other facilities are not able to prescribe Methadone and administer Methadone at their facilities. stallion manager sent list of denials as requested yesterday and left a message this morning with Tonja
at [facility] [phone], .
Plan; Still attempting to place patient at a skilled facility, patient is on 140mg Methadone.
--- NOTE | 2023-11-07 12:59 | W.DS.TRANS ---
DC Summary - [employer]
-
Discharge Instructions:
Discharge Diagnosis/Procedures Sepsis/MSSA bacteremia
Opiate use disorder
Diet Regular
Instructions:
Stand-Alone Forms:
Changes to Home Medications: No
Discharge Medications:
DC Medications w/original date entered in [employer]
divalproex 500 mg tablet,delayed release 1,000 mg PO HS Seizures 10/21/23
divalproex 500 mg tablet,delayed release 250 mg PO DAILY Seizures 10/21/23
gabapentin 100 mg capsule 100 mg PO DAILY Pain 10/21/23
nicotine 21 mg/24 hr daily transdermal patch 1 patch transdermal DAILY Smoking Cessation 10/21/23
omeprazole 40 mg capsule,delayed release 40 mg PO DAILY Gastrointestinal Issue 10/21/23
sertraline 100 mg tablet 100 mg PO BID Mental Health/Anxiety 10/21/23
acetaminophen 325 mg tablet 650 mg PO Q4HPRN PRN SALMON/mild pain/temp > 100.4 F #30 tabs 10/31/23
bisacodyl 5 mg tablet,delayed release 10 mg PO DAILYPRN PRN constipation #30 tabs 10/31/23
cefazolin 10 gram solution for injection 2 g IV Q8H #10 ea 10/31/23
clonazepam 0.5 mg tablet 0.5 mg PO QID Mental Health/Anxiety #14 tabs 10/31/23
methadone 10 mg tablet 140 mg PO DAILY SUBSTANCE USE DISORDER #10 tabs 10/31/23
polyethylene glycol 3350 17 gram oral powder packet (HealthyLax) 17 g PO DAILY #30 ea 10/31/23
risperidone 1 mg tablet 1 mg PO HS #30 tabs 10/31/23
trazodone 50 mg tablet 75 mg PO HS #30 tabs 10/31/23
Home Medication Changes
Pending Results: No
== END 2023-11-07 16:02 | DRG 871 ==
LOC: 4 WEST ACU 18:27
PROVIDERS: Physician Assistant; Physician Assistant Medical; ADMITTING PHYSICIAN Internal Medicine; ATTENDING PHYSICIAN Internal Medicine; CONSULT PHYSICIAN Podiatrist Foot & Ankle Surgery; EMERGENCY PHYSICIAN Emergency Medicine; OTHER PHYSICIAN Psychiatry & Neurology Psychiatry; OTHER PHYSICIAN Student in an Organized Health Care Education/Training Program
DX: A41.01 Sepsis due to Methicillin susceptible Staphylococcus aureus (principal); G92.8 Other toxic encephalopathy; F11.20 Opioid dependence, uncomplicated; N17.9 Acute kidney failure, unspecified; L03.115 Cellulitis of right lower limb; R44.0 Auditory hallucinations; F32.3 Major depressive disorder, single episode, severe with psychotic features; D61.818 Other pancytopenia; F90.9 Attention-deficit hyperactivity disorder, unspecified type; G40.909 Epilepsy, unspecified, not intractable, without status epilepticus; G80.9 Cerebral palsy, unspecified; F41.9 Anxiety disorder, unspecified; F17.210 Nicotine dependence, cigarettes, uncomplicated; S90.821A Blister (nonthermal), right foot, initial encounter; X58.XXXA Exposure to other specified factors, initial encounter; L84 Corns and callosities; R65.20 Severe sepsis without septic shock; R09.02 Hypoxemia; Z11.52 Encounter for screening for COVID-19; Z79.899 Other long term (current) drug therapy; Z86.14 Personal history of Methicillin resistant Staphylococcus aureus infection; Z96.641 Presence of right artificial hip joint
CPT/HCPCS: 71275; 73502; 73630; 73718; 80048; 80053; 80143; 80164; 80179; 80202; 80306; 80307; 81003; 81015; 82077; 82140; 82607; 83036; 83540; 83550; 83605; 83735; 84132; 84484; 85025; 85027; 85610; 85730; 87040; 87070; 87149; 87186; 87205; 87389; 87502; 87811; 93005; 93306; 96361; 96365; 96366; 96375; 97116; 97163; 97530; 99285; Q9967

== ENCOUNTER 2023-11-10 11:05 | Inpatient (IN) | payer OTHER, SELFPAY ==
[2023-11-07 23:59] VITALS: BP 126/84
[2023-11-08] VITALS (9 sets, daily range): BP systolic 102–134; BP diastolic 65–85; PULSE 72–76; BMI 24.5
--- NOTE | 2023-11-08 00:02 | ED.GENMED ---
History of Present Illness
General
Chief Complaint: Medication Reaction
Time Seen by Provider: 11/08/23 00:01
History of Present Illness
History of Present Illness:
HPI: The patient was just discharged here with diagnosis of severe sepsis/PATRICIA. He is on methadone 140 mg. He was discharged [facility] as he appears rather debilitated. [facility] sent him back here because they refused to given the
methadone after discussion with their medical billing clerk and their pharmacy, Greg. I did speak to Dwain
EXAM:
GENERAL: The patient appears rather weak and debilitated
HEENT: Moist oral mucosa
CARDIOVASCULAR: No murmurs, normal heart rate and rhythm, No chest wall tenderness
PULMONARY: No respiratory distress, breath sounds are clear and equal
ABDOMEN: Soft with no peritoneal signs, no tenderness
NEUROLOGIC: Excellent strength all extremities, no coordination deficits
PSYCHIATRIC: Appropriate mental status, normal insight and judgement
EXTREMITIES: The patient has a shoe to the right foot
SKIN: Patient appears pale
ED COURSE:
12:30 AM: I initially evaluated patient
NUMBER AND COMPLEXITY OF PROBLEMS ADDRESSED AT THE ENCOUNTER
� Chronic conditions affecting care: Cerebral palsy, epilepsy, ADHD, alcohol abuse, anxiety/depression, substance abuse, on methadone, tobacco use, seizure disorder
� Acute Exacerbation and/or Progression of Chronic Illness: This is a chronic problem
� Differential Diagnosis includes: Disposition issue
AMOUNT AND/OR COMPLEXITY OF DATA TO BE REVIEWED AND ANALYZED
� I performed an independent evaluation of and my interpretation is:
EKG:
CT:
X-rays:
Laboratory Studies: Blood work from a few weeks ago showed pancytopenia and renal function was normal as of 5 days after admission
Other:
� Review of other/old records: I reviewed records. The patient was admitted here for the past 2 to 3 weeks with severe sepsis secondary to right lower extremity cellulitis with Michelle SSA bacteremia, PATRICIA. The patient is on
chronic methadone as well. MRI showed no osteomyelitis, TTE showed no vegetation, the notes indicate the patient was discharged to SNF for rehab
� Clinical information was obtained by an independent historian: See below
� Prescriptions/Medications Considered but not given:
� Further testing considered but not performed:
RISK OF COMPLICATIONS AND/OR MORBIDITY OR MORTALITY OF PATIENT MANAGEMENT
� Social determinants of health affecting care: As above
� Discussion with other providers: Dr. Chao
� Escalation of care including admission/observation vs risk of discharge considered: I discussed with Dwain, the nursing polymerization supervisor at [facility]. He spoke to his medical billing clerk and the [facility] pharmacy despite having the
prescription from our hospital, they are not willing to give the methadone 140 mg. The patient states he is no longer on antibiotics.
Phy Exam
Physical Exam
Physical Exam:
See HPI
Course
Orders/Labs/Results
Orders:
Orders
11/08/23 01:42
Admit/Transfer Patient As Directed
Co-Sign Provider:
Level of Care: Observation services
Assign to:: Medical/Surgical
Physician / Group: Jeremie
Diagnosis: Chronic Pain
11/08/23 01:46
Code Status As Directed
Resuscitation Status: Full Code
11/08/23 01:48
Divalproex Extended Rel. 24 Hr [Depakote ER (24 Hr Release)] 1,000 mg PO NOW STA
Trazodone [Desyrel] 75 mg PO NOW STA
Vital Signs
Initial and Last Documented VS:
Initial Vital Signs
Temp Pulse Resp BP Pulse Ox
97.8 F 79 14 126/84 96
11/07/23 23:59 11/07/23 23:59 11/07/23 23:59 11/07/23 23:59 11/07/23 23:59
Last Documented Vital Signs
Temp Pulse Resp BP Pulse Ox
97.8 F 63 10 132/85 94
11/07/23 23:59 11/08/23 02:45 11/08/23 02:45 11/08/23 01:00 11/08/23 02:15
*Critical Care Note
Total Time (30-74mins, 75-104mins- exclusive of procedures): Not Applicable
ED Attending Note
-
Portions of this chart may have been created with voice recognition software.� Occasional wrong word or��sound alike� substitutions may have occurred due to the inherent limitations of voice recognition software.
Discharge Plan
Departure
Patient Disposition: Admit
Date of Disposition: 11/08/23
Time of Disposition: 00:44
Presentation/result/management discussed w/ accepting MD/DO: Hospitalist
Discharge Problem:
Encounter for medical assessment
Interventions
Interventions:
*Risk Screen - Suicide Last Done: 11/07/23 23:59
*General Assessment Last Done: 11/07/23 23:59
*Neglect/Abuse Screening Last Done: 11/07/23 23:59
ED- Fall Risk Assessment Last Done: 11/07/23 23:59
*ED COVID-19 Vaccine History Last Done: 11/07/23 23:59
ED-Skin Assessment Last Done: 11/08/23 00:05
ED- Pulmonary Assessment Last Done: 11/08/23 00:05
ED-EENT Assessment Last Done: 11/08/23 00:00
--- NOTE | 2023-11-08 01:49 | HPS.HSE ---
Family Physician
-
Family Physician: NOT KNOW UNKNOWN - PT DOES
Chief Complaint
-
Lack of Medication
History of Present Illness
Patient is a 43y M with PMH significant for cerebral palsy, chronic opioid dependence and recent hospitalization for sepsis / RLE cellulitis and wound who presents to ED from local SNF where he was discharged to this afternoon. Patient just
completed hospital stay here from 10/21 - 11/06 secondary to RLE cellulitis with sepsis. He completed abx therapy during his stay and was discharged to [facility] for skilled rehab / deconditioning. On arrival to that facility, they noted that
they were unable / unwilling to supply his methadone prescription and patient was returned to ED.
Currently he is resting comfortably in the ED with no specific complaints.
Medical History
Past Medical History
Past Medical History: Reports Other
Additional Past Medical History:
Anxiety/Auditory Hallucination
Seizure Disorder
Cerebral Palsy
IV Drug Abuse
Past Surgical History: Reports Other
Additional Past Surgical History:
Right Foot Infection s/p I&D
Hip Replacement
Social History
Tobacco: Smoker (1 ppd)
Alcohol: Former (Quit in 2006)
Drug: Former User (Quit in 2006)
Family History
Family History: Not pertinent
Allergies / Home Medications
Allergies reflects when Allergies were last updated in [employer].
Home Medications with original date entered in [employer]
Allergy/Medication List:
Allergies
Allergy/AdvReac Type Severity Reaction Status Date / Time
aripiprazole [From Abilify] Allergy Rash Verified 11/07/23 23:57
Home Medications
divalproex 500 mg tablet,delayed release 1,000 mg PO HS Seizures 10/21/23
divalproex 500 mg tablet,delayed release 250 mg PO DAILY Seizures 10/21/23
gabapentin 100 mg capsule 100 mg PO DAILY Pain 10/21/23
nicotine 21 mg/24 hr daily transdermal patch 1 patch transdermal DAILY Smoking Cessation 10/21/23
omeprazole 40 mg capsule,delayed release 40 mg PO DAILY Gastrointestinal Issue 10/21/23
sertraline 100 mg tablet 100 mg PO BID Mental Health/Anxiety 10/21/23
acetaminophen 325 mg tablet 650 mg PO Q4HPRN PRN SALMON/mild pain/temp > 100.4 F #30 tabs 10/31/23
bisacodyl 5 mg tablet,delayed release 10 mg PO DAILYPRN PRN constipation #30 tabs 10/31/23
cefazolin 10 gram solution for injection 2 g IV Q8H #10 ea 10/31/23
clonazepam 0.5 mg tablet 0.5 mg PO QID Mental Health/Anxiety #14 tabs 10/31/23
polyethylene glycol 3350 17 gram oral powder packet (HealthyLax) 17 g PO DAILY #30 ea 10/31/23
risperidone 1 mg tablet 1 mg PO HS #30 tabs 10/31/23
trazodone 50 mg tablet 75 mg PO HS #30 tabs 10/31/23
methadone 10 mg tablet 140 mg PO DAILY SUBSTANCE USE DISORDER #42 tabs 11/07/23
Review of Systems
-
History Source: Patient
A 12 point ROS was completed and negative except as noted: Yes
Constitutional: Denies Fever or Chills
Respiratory: Denies Cough or Trouble Breathing
Cardiac: Denies Chest Pain or Palpitations
Abdomen/GI: Denies Abdominal Pain, Nausea, Vomiting or Diarrhea
: Denies Dysuria or Frequency
Neurological: Denies Dizzy or Headache
Physical Exam
Vital Signs
Vital Signs
Temp Pulse Resp BP Pulse Ox
97.8 F 69 10 132/85 96
11/07/23 23:59 11/08/23 01:15 11/08/23 01:15 11/08/23 01:00 11/08/23 01:15
Physical Exam
General: Other (43y M in no acute distress.)
HEENT: Moist mucous membranes
Respiratory: Clear; No Wheezes, Rales or Rhonchi
Cardiac: S1/S2 and Regular Rhythm; No Murmur
GI: Soft, Non Tender, Non Distended and Normal Bowel Sounds
Musculoskeletal: No Clubbing and No Cyanosis
Skin: Warm, Dry and Other (wound in area of 1st MTP joint)
Neuro: AO x 3
Impression/Plan
-
A/P: Patient is a 43y M with PMH significant for opioid dependence and recent admission for sepsis and cellulitis who presents to ED due to lack of available chronic medications at the facility to which he was discharged.
Chronic Opioid Dependence
- Observe overnight.
- Continue usual chronic medications including methadone.
- Case Management eval in AM to clarify issue with [facility].
- Note that prior documentation suggests that all arrangements had been confirmed prior to his discharge.
RLE Cellulitis / Wound
MSSA Bacteremia
- Wound care evaluation / continue local care.
- Note that patient completed his abx regimen on 3 according to prior documentation.
- No need for any further abx at this point and will discontinue.
Seizure Disorder
Cerebral Palsy
- Stable. Continue usual outpatient medications.
Mood Disorder
- Stable. Continue usual outpatient medications.
DVT Prophylaxis: Lovenox
Code Status: Full
[2023-11-08] MEDS: DESYREL 75 MG PO ×2 (02:12→21:31)
[2023-11-08] MEDS: DEPAKOTE ER (24 HR RELEASE) 1000 MG PO (02:13)
--- NOTE | 2023-11-08 08:35 | CM ---
Addendum entered by Rhonda Romero RN 11/08/23 10:29:
[facility] cannot accept.
Addendum entered by Rhonda Romero RN 11/08/23 10:11:
CM sent multiple referrals via [facility] for SNF placement.
Addendum entered by Rhonda Romero RN 11/08/23 09:07:
FABIANA spoke with Tarah nursing supervisory air intercept controller at [facility]. As per her DON and medical records clerk, they cannot accept patient back due to the dosage requirement for Methadone. They are unable to obtain the dose through their pharmacy. FABIANA is still
awaiting call from Hong at [facility] to discuss plan.
FABIANA updated Dr. Whelan with discharge efforts.
Original Note:
FABIANA left message for Hong director of income tax at [facility] to discuss Methadone.
--- NOTE | 2023-11-08 09:04 | W.PN.UPDATE ---
Update Note
Progress Note Update
Patient seen and examined after post midnight admission. Patient reports he feels unwell because he missed his medications yesterday for 6 hours. Vital signs stable. No acute distress. Regular rate and rhythm, normal S1-S2. Clear to
auscultation bilaterally. Positive bowel sounds, soft, nontender, nondistended. Case discussed with Rhonda Romero of [facility]. Will d/c once facility can confirm availability of patient's medications.
[2023-11-08] MEDS: KLONOPIN 0.5 MG PO ×4 (09:32→21:27)
[2023-11-08] MEDS: NICODERM TRANSDERMAL 21 MG TRANSDERM (09:32)
[2023-11-08] MEDS: NEURONTIN 100 MG PO (09:32)
[2023-11-08] MEDS: MIRALAX PO ×2 (09:32→09:43)
[2023-11-08] MEDS: DEPAKOTE (12 HR RELEASE) 250 MG PO ×2 (09:33)
[2023-11-08] MEDS: ZOLOFT 100 MG PO ×2 (09:33→21:27)
[2023-11-08] MEDS: PROTONIX 40 MG PO (09:33)
[2023-11-08] MEDS: METHADONE 100 MG/10 ML 140 MG PO (10:14)
--- NOTE | 2023-11-08 10:42 | CM ---
Addendum entered by Rhonda Romero RN 11/08/23 12:13:
CM met with patient in room. Patient was grateful for CM's assistance with placement. Patient stated that [facility] was 'horrible' and he doesn't want to return. He is agreeable to continued placement efforts. Patient did ask if he could stay
in the hospital a few days and then be discharged to home with VN.
CM will continue with placement efforts and follow PT recommendations.
OBS letter given.
Original Note:
CM sent referral via [facility] to [facility]. CM left message for Tessa in admissions at [facility] to discuss patient's discharge .
[2023-11-08] MEDS: LOVENOX 40 MG SC (17:45)
[2023-11-08] MEDS: RISPERDAL 1 MG PO (21:31)
[2023-11-08] MEDS: DEPAKOTE (12 HR RELEASE) 1000 MG PO (21:32)
[2023-11-09 00:19] VITALS: BP 106/65
[2023-11-09 07:20] VITALS: BP 122/80
--- NOTE | 2023-11-09 08:01 | W.PN.HOSP.TC ---
Today's Communication/Plan
-
see bold
Assessment / Plan
Assessment / Plan
43y M with PMH significant for opioid dependence and recent admission for sepsis and cellulitis who presents to ED due to lack of available chronic medications at the facility to which he was discharged.
Gen: NAD, Awake and alert, NCAT
Eyes: EOMI, PERRLA, no scleral icterus.
Neck: supple.
CV: RRR, +S1/S2, no m/r/g.
Resp: CTAB, no rales, wheezes, or rhonchi.
Abd: +BS, soft, NT, ND
Skin: No rashes.
Neuro: CN 2-12 intact
Psych: flat affect.
Chronic Opioid Dependence:
-cont Methadone
RLE Cellulitis/Wound with MSSA bacteremia:
-completed course of abx 11/03/23
Seizure Disorder:
-h/o cerebral Palsy
-Continue Klonopin/Depakote
Mood Disorder:
-Continue Klonopin/Depakote/Zoloft/trazodone/Risperdal
FULL/Lovenox
Remains medically stable for d/c. Case management aware.
Anticipated Discharge: Today
Subjective/Interval History
-
Date of Service: November 09, 2023
No new complaints.
Objective Data
-
Vital Signs:
Vital Signs
Temp Pulse Resp BP Pulse Ox
97.7 F 65 14 122/80 97
11/09/23 07:20 11/09/23 07:20 11/09/23 07:20 11/09/23 07:20 11/09/23 07:20
I&O
11/08/23 11/09/23 11/10/23
05:59 06:59 06:59
Intake Total
Output Total
Balance
[2023-11-09] MEDS: KLONOPIN 0.5 MG PO ×4 (10:00→21:28)
[2023-11-09] MEDS: PROTONIX 40 MG PO (10:00)
[2023-11-09] MEDS: MIRALAX 17 GRAMS PO (10:00)
[2023-11-09] MEDS: METHADONE 100 MG/10 ML 140 MG PO (10:00)
[2023-11-09] MEDS: DEPAKOTE (12 HR RELEASE) 250 MG PO (10:00)
[2023-11-09] MEDS: ZOLOFT 100 MG PO ×2 (10:00→19:44)
[2023-11-09] MEDS: NEURONTIN 100 MG PO (10:00)
[2023-11-09] MEDS: NICODERM TRANSDERMAL 21 MG TRANSDERM (10:02)
[2023-11-09 15:25] VITALS: BP 107/67
[2023-11-09] MEDS: LOVENOX 40 MG SC (17:43)
[2023-11-09] MEDS: DESYREL 75 MG PO (21:27)
[2023-11-09] MEDS: DEPAKOTE (12 HR RELEASE) 1000 MG PO (21:27)
[2023-11-09] MEDS: RISPERDAL 1 MG PO (21:28)
[2023-11-09 23:13] VITALS: BP 120/73
[2023-11-10 07:11] VITALS: BP 107/69
[2023-11-10] MEDS: MIRALAX 17 GRAMS PO (09:14)
[2023-11-10] MEDS: METHADONE 100 MG/10 ML 140 MG PO (09:14)
[2023-11-10] MEDS: NICODERM TRANSDERMAL 21 MG TRANSDERM (09:14)
[2023-11-10] MEDS: NEURONTIN 100 MG PO (09:15)
[2023-11-10] MEDS: ZOLOFT 100 MG PO ×2 (09:15→21:30)
[2023-11-10] MEDS: PROTONIX 40 MG PO (09:15)
[2023-11-10] MEDS: DEPAKOTE (12 HR RELEASE) 250 MG PO (09:15)
[2023-11-10] MEDS: KLONOPIN 0.5 MG PO ×4 (09:15→21:30)
[2023-11-10 10:25] VITALS: BP 114/72; PULSE 68; O2SAT 96
--- NOTE | 2023-11-10 10:28 | CM ---
Addendum entered by Mari Lopez RN 11/10/23 15:00:
Contacted [facility] ([phone]) to start auth. Spoke with Davina. Faxed clinicals to ([phone]).
Addendum entered by Mari Lopez RN 11/10/23 14:26:
Andre Oneill NPI# [id number]
Dr. Sheriff NPI# [id number]
Addendum entered by Mari Lopez RN 11/10/23 12:17:
Received call from Nadia director of recruitment for [facility] ([phone]), they are able to accept the patient with his current dose of Methadone. They will also accept patient once appended reference number from insurance is obtained.
Original Note:
Reviewed the chart notes. Additional referrals sent. Barrier is patient is on Methadone and his dosage. PT evaluated patient and recommends SNF. Precert will be required once a bed is found. CM continues to be available to patient/family and is
monitoring medical plan for needs at discharge.
Plan: Discharge to SNF once bed found and precert obtained.
--- NOTE | 2023-11-10 12:56 | W.PN.HOSP.TC ---
Today's Communication/Plan
-
Pending discharge
Assessment / Plan
Assessment / Plan
43y M with PMH significant for opioid dependence and recent admission for sepsis and cellulitis who presents to ED due to lack of available chronic medications at the facility to which he was discharged.
Chronic Opioid Dependence:
-cont Methadone
RLE Cellulitis/Wound with MSSA bacteremia:
-completed course of abx 11/03/23
Seizure Disorder:
-h/o cerebral Palsy
-Continue Klonopin/Depakote
Mood Disorder:
-Continue Klonopin/Depakote/Zoloft/trazodone/Risperdal
FULL/Lovenox
Remains medically stable for d/c.
Patient with sepsis and bacteremia, hospital course complicated with acute kidney injury and TME with currently improved mental status back to baseline.�There has to be no neurologic or behavioral abnormalities. Given significant deconditioning
patient will required further debilitation in alf facility with anticipated length of stay less than 30 days.
Anticipated Discharge: Today
Subjective/Interval History
-
Date of Service: November 10, 2023
Objective Data
-
Vital Signs:
Vital Signs
Temp Pulse Resp BP Pulse Ox
98.2 F 59 16 107/69 95
11/10/23 07:11 11/10/23 07:11 11/10/23 07:11 11/10/23 07:11 11/10/23 07:11
I&O
11/09/23 11/10/23 11/11/23
06:59 06:59 06:59
Intake Total 1170 / 1170
Output Total 1200 / 1200
Balance -30 / -30
Physical Exam
-
General: Well Developed and No Apparent Distress
HEENT: Normocephalic, Atraumatic and Moist Mucous Membranes
Respiratory: Clear to Auscultation
Cardiac: Regular Rhythm and S1/S2; Negative Murmur, Rub or Gallop
GI: Soft, Nontender, Nondistended and Normal Bowel Sounds; Negative Organomegaly
Rectal: Deferred by Provider
Musculoskeletal: No Clubbing, No Cyanosis and No Edema
Skin: Negative Rash
Neuro: Awake, Alert, Oriented, AO x 3 and Nonfocal/Grossly Intact
--- NOTE | 2023-11-10 14:25 | WOUNDNOTE ---
R 5TH TOENAIL BED.
--- NOTE | 2023-11-10 14:25 | WOUNDNOTE ---
R PLANTAR MEDIAL 1ST MTH
--- NOTE | 2023-11-10 14:46 | WOUNDNOTE ---
[facility] RN note: Patient admitted for chronic pain. For transfer to SNF who can provide Methadone as early as tomorrow.
See H&P for complete history.
PMH: Recent stay for RLE cellulitis, R plantar lateral 1st MTH head callus debridement by Dr. Salas, IVDA, CP, anxiety/depression, seizure disorder, R foot infection, s/p I+D R foot, hip replacement.
Wound Location and type/assessment: Patient admitted with: R plantar medial 1st MTH scattered callused skin with small dry black callus. No drainage. No erythema. Toes warm. R 5th toenail bed with small dry brown scab. Patient is able to
ambulate. He has his R pressure relief shoe.
Appetite: on regular diet.
Pressure redistribution devices in place: [employer] air bed. Patient can turn self in bed.
Plan: Moisture lotion applied R foot callus. Slipper socks reapplied. Heels elevated off bed with pillow.
Care plan to be updated. Will sign off. Re-consult if needed.
Patient to follow up with industrial engineering analyst.
[2023-11-10 15:15] VITALS: BP 112/60
[2023-11-10] MEDS: LOVENOX 40 MG SC (17:16)
[2023-11-10] MEDS: DEPAKOTE (12 HR RELEASE) 1000 MG PO (21:29)
[2023-11-10] MEDS: RISPERDAL 1 MG PO (21:30)
[2023-11-10] MEDS: DESYREL 75 MG PO (21:30)
[2023-11-10 23:22] VITALS: BP 120/64
[2023-11-11 07:10] VITALS: BP 149/85
[2023-11-11] MEDS: NICODERM TRANSDERMAL 21 MG TRANSDERM (07:53)
[2023-11-11] MEDS: PROTONIX 40 MG PO (07:53)
[2023-11-11] MEDS: ZOLOFT 100 MG PO ×2 (07:53→20:33)
[2023-11-11] MEDS: NEURONTIN 100 MG PO (07:53)
[2023-11-11] MEDS: METHADONE 100 MG/10 ML 140 MG PO (07:53)
[2023-11-11] MEDS: DEPAKOTE (12 HR RELEASE) 250 MG PO (07:53)
[2023-11-11] MEDS: MIRALAX 17 GRAMS PO (07:53)
[2023-11-11] MEDS: KLONOPIN 0.5 MG PO ×4 (07:53→21:26)
[2023-11-11 15:05] VITALS: BP 121/77
--- NOTE | 2023-11-11 16:08 | CM ---
Reviewed the chart notes and call placed to [facility]. Spoke with Kina, per Kina they have received clinicals and have a pended auth# [id number]. Plan for discharge tomorrow to [facility]. CM continues to be available to
patient/family and is monitoring medical plan for needs at discharge.
Plan: Discharge to [facility] hopefully tomorrow.
--- NOTE | 2023-11-11 17:24 | W.PN.HOSP.TC ---
Today's Communication/Plan
-
Medically stable
Ongoing disposition efforts pending insurance authorization
Assessment / Plan
Assessment / Plan
43y M with PMH significant for opioid dependence and recent admission for sepsis and cellulitis who presents to ED due to lack of available chronic medications at the facility to which he was discharged.
Chronic Opioid Dependence:
-cont Methadone
RLE Cellulitis/Wound with MSSA bacteremia:
-completed course of abx 11/03/23
Seizure Disorder:
-h/o cerebral Palsy
-Continue Klonopin/Depakote
Mood Disorder:
-Continue Klonopin/Depakote/Zoloft/trazodone/Risperdal
FULL/Lovenox
Remains medically stable for d/c.
Patient with sepsis and bacteremia, hospital course complicated with acute kidney injury and TME with currently improved mental status back to baseline.�There has to be no neurologic or behavioral abnormalities. Given significant deconditioning
patient will required further debilitation in long-term facility with anticipated length of stay less than 30 days.
Anticipated Discharge: Within 24 hours
Subjective/Interval History
-
Date of Service: November 11, 2023
Objective Data
-
Vital Signs:
Vital Signs
Temp Pulse Resp BP Pulse Ox
98.6 F 71 16 121/77 97
11/11/23 15:05 11/11/23 15:05 11/11/23 15:05 11/11/23 15:05 11/11/23 15:05
I&O
11/10/23 11/11/23 11/12/23
06:59 06:59 06:59
Intake Total 1170 / 1170 1620 / 1620
Output Total 1200 / 1200 500 / 500
Balance -30 / -30 1120 / 1120
Physical Exam
-
General: Well Developed and No Apparent Distress
HEENT: Normocephalic, Atraumatic and Moist Mucous Membranes
Respiratory: Clear to Auscultation
Cardiac: Regular Rhythm and S1/S2; Negative Murmur, Rub or Gallop
GI: Soft, Nontender, Nondistended and Normal Bowel Sounds; Negative Organomegaly
Rectal: Deferred by Provider
Musculoskeletal: No Clubbing, No Cyanosis and No Edema
Skin: Negative Rash
Neuro: Nonfocal/Grossly Intact
[2023-11-11] MEDS: LOVENOX 40 MG SC (17:58)
[2023-11-11] MEDS: DESYREL 75 MG PO (21:26)
[2023-11-11] MEDS: DEPAKOTE (12 HR RELEASE) 1000 MG PO (21:26)
[2023-11-11] MEDS: RISPERDAL 1 MG PO (21:26)
[2023-11-11 23:08] VITALS: BP 112/71
[2023-11-12 07:30] VITALS: BP 117/68
[2023-11-12] MEDS: METHADONE 100 MG/10 ML 140 MG PO (08:20)
[2023-11-12] MEDS: NEURONTIN 100 MG PO (08:26)
[2023-11-12] MEDS: DEPAKOTE (12 HR RELEASE) 250 MG PO (08:26)
[2023-11-12] MEDS: ZOLOFT 100 MG PO ×2 (08:26→20:27)
[2023-11-12] MEDS: PROTONIX 40 MG PO (08:26)
[2023-11-12] MEDS: KLONOPIN 0.5 MG PO ×4 (08:26→20:27)
[2023-11-12] MEDS: MIRALAX 17 GRAMS PO (08:26)
[2023-11-12] MEDS: NICODERM TRANSDERMAL 21 MG TRANSDERM (08:26)
--- NOTE | 2023-11-12 12:00 | CM ---
FABIANA received denial from insurance for [facility]. The patient would be out of state and his insurance would not cover. FABIANA spoke with Brandyn from [facility]. He e-mailed a list of providers within a 100 mile radius of . CM will
need to submit additional referrals. The patient being on Methadone is a barrier to placement. Looking for 30 day exceptional admission. Attending, RN and patient updated. Patient prior admission was receiving his Methadone from [facility]. FABIANA continues to be available to patient/family and is monitoring medical plan for needs at discharge.
Plan: Discharge to SNF/rehab once bed found that can accommodate the patient's Methadone and precert obtained.
--- NOTE | 2023-11-12 14:08 | W.PN.HOSP.TC ---
Today's Communication/Plan
-
Medically, neurologically and psychiatrically stable
Pending placement to fdc facility
Continue physical therapy assessment
Assessment / Plan
Assessment / Plan
43y M with PMH significant for opioid dependence and recent admission for sepsis and cellulitis who presents to ED due to lack of available chronic medications at the facility to which he was discharged.
Chronic Opioid Dependence:
-cont Methadone
RLE Cellulitis/Wound with MSSA bacteremia:
-completed course of abx 11/03/23
Seizure Disorder:
-h/o cerebral Palsy
-Continue Klonopin/Depakote
Mood Disorder:
-Continue Klonopin/Depakote/Zoloft/trazodone/Risperdal
FULL/Lovenox
Remains medically stable for d/c.
Patient with sepsis and bacteremia, hospital course complicated with acute kidney injury and TME with currently improved mental status back to baseline.�There has to be no neurologic or behavioral abnormalities. Given significant deconditioning
patient will required further debilitation in fdc facility with anticipated length of stay less than 30 days.
Anticipated Discharge: Within 24 hours
Subjective/Interval History
-
Date of Service: November 12, 2023
Objective Data
-
Vital Signs:
Vital Signs
Temp Pulse Resp BP Pulse Ox
98.3 F 55 14 117/68 98
11/12/23 07:30 11/12/23 07:30 11/12/23 07:30 11/12/23 07:30 11/12/23 10:50
I&O
11/11/23 11/12/23 11/13/23
06:59 06:59 06:59
Intake Total 1620 / 1620 1170 / 1170
Output Total 500 / 500 1250 / 1250
Balance 1120 / 1120 -80 / -80
Physical Exam
-
General: Well Developed and No Apparent Distress
HEENT: Normocephalic, Atraumatic and Moist Mucous Membranes
Respiratory: Clear to Auscultation
Cardiac: Regular Rhythm and S1/S2; Negative Murmur, Rub or Gallop
GI: Soft, Nontender, Nondistended and Normal Bowel Sounds; Negative Organomegaly
Rectal: Deferred by Provider
Musculoskeletal: No Clubbing, No Cyanosis and No Edema
Skin: Negative Rash
Neuro: Nonfocal/Grossly Intact
[2023-11-12 15:20] VITALS: BP 96/55
[2023-11-12] MEDS: LOVENOX 40 MG SC (17:33)
[2023-11-12] MEDS: DEPAKOTE (12 HR RELEASE) 1000 MG PO (20:27)
[2023-11-12] MEDS: DESYREL 75 MG PO (20:28)
[2023-11-12] MEDS: RISPERDAL 1 MG PO (20:28)
[2023-11-12 23:38] VITALS: BP 118/71
[2023-11-13 07:56] VITALS: BP 121/65
[2023-11-13] MEDS: KLONOPIN 0.5 MG PO ×4 (09:06→21:23)
[2023-11-13] MEDS: NEURONTIN 100 MG PO (09:06)
[2023-11-13] MEDS: DEPAKOTE (12 HR RELEASE) 250 MG PO (09:06)
[2023-11-13] MEDS: PROTONIX 40 MG PO (09:06)
[2023-11-13] MEDS: ZOLOFT 100 MG PO ×2 (09:06→19:58)
[2023-11-13] MEDS: NICODERM TRANSDERMAL 21 MG TRANSDERM (09:28)
[2023-11-13] MEDS: MIRALAX PO (09:28)
[2023-11-13] MEDS: METHADONE 100 MG/10 ML 140 MG PO (09:39)
[2023-11-13 13:08] VITALS: BP 111/77; PULSE 58; O2SAT 98
[2023-11-13 15:15] VITALS: BP 101/67
--- NOTE | 2023-11-13 15:23 | CM ---
Plan is now for the patient to discharge back to his home [address] [place] [address] [address] [address] (cell: [phone]). Appointment made at [place] [address] [facility] [id number]; Reference #[id number]; Phone for
clinic: ([phone]; option 2 then option 0). Friday @ 12pm. Patient instructed to bring ID, insurance card, medication list, and used medication bottles. Information written on paper and provided to the patient. Transportation
will need to be arranged by . CM continues to be available to patient/family and is monitoring medical plan for needs at discharge.
Plan: Discharge to home on Friday after Methadone dose.
[2023-11-13] MEDS: LOVENOX 40 MG SC (17:57)
--- NOTE | 2023-11-13 18:36 | W.PN.HOSP.TC ---
Today's Communication/Plan
-
Placement
Assessment / Plan
Assessment / Plan
43y M with PMH significant for opioid dependence and recent admission for sepsis and cellulitis who presents to ED due to lack of available chronic medications at the facility to which he was discharged.
Chronic Opioid Dependence:
-cont Methadone
RLE Cellulitis/Wound with MSSA bacteremia:
-completed course of abx 11/03/23
Seizure Disorder:
-h/o cerebral Palsy
-Continue Klonopin/Depakote
Mood Disorder:
-Continue Klonopin/Depakote/Zoloft/trazodone/Risperdal
FULL/Lovenox
Remains medically stable for d/c.
Patient with sepsis and bacteremia, hospital course complicated with acute kidney injury and TME with currently improved mental status back to baseline.�There has to be no neurologic or behavioral abnormalities. Given significant deconditioning
patient will required further debilitation in [facility] facility with anticipated length of stay less than 30 days.
Anticipated Discharge: 24 - 48 hours
Subjective/Interval History
-
Date of Service: November 13, 2023
Objective Data
-
Vital Signs:
Vital Signs
Temp Pulse Resp BP Pulse Ox
97.7 F 63 14 101/67 96
11/13/23 15:15 11/13/23 15:15 11/13/23 15:15 11/13/23 15:15 11/13/23 15:15
I&O
11/12/23 11/13/23 11/14/23
06:59 06:59 06:59
Intake Total 1170 / 1170 720 / 720 840 / 840
Output Total 1250 / 1250 825 / 825 400 / 400
Balance -80 / -80 -105 / -105 440 / 440
Physical Exam
-
General: Well Developed and No Apparent Distress
HEENT: Normocephalic, Atraumatic and Moist Mucous Membranes
Respiratory: Clear to Auscultation
Cardiac: Regular Rhythm and S1/S2; Negative Murmur, Rub or Gallop
GI: Soft, Nontender, Nondistended and Normal Bowel Sounds; Negative Organomegaly
Rectal: Deferred by Provider
Musculoskeletal: No Clubbing, No Cyanosis and No Edema
Skin: Negative Rash
Neuro: Nonfocal/Grossly Intact
[2023-11-13] MEDS: DESYREL 75 MG PO (21:23)
[2023-11-13] MEDS: RISPERDAL 1 MG PO (21:23)
[2023-11-13] MEDS: DEPAKOTE (12 HR RELEASE) 1000 MG PO (21:24)
[2023-11-13 23:17] VITALS: BP 123/67
[2023-11-14 07:32] VITALS: BP 124/84
[2023-11-14] MEDS: METHADONE 100 MG/10 ML 140 MG PO (08:17)
[2023-11-14] MEDS: ZOLOFT 100 MG PO ×2 (08:18→19:35)
[2023-11-14] MEDS: DEPAKOTE (12 HR RELEASE) 250 MG PO (08:18)
[2023-11-14] MEDS: NICODERM TRANSDERMAL 21 MG TRANSDERM (08:18)
[2023-11-14] MEDS: KLONOPIN 0.5 MG PO ×4 (08:18→21:31)
[2023-11-14] MEDS: PROTONIX 40 MG PO (08:18)
[2023-11-14] MEDS: NEURONTIN 100 MG PO (08:18)
[2023-11-14] MEDS: MIRALAX 17 GRAMS PO (08:19)
--- NOTE | 2023-11-14 12:49 | CM ---
CM following re: discharge planning.
Reviewed pt's chart, met with pt and discussed with PT.
A referral to many many SNFs noted and none of SNFs looking for to accept the pt. Pt is aware, expressed his disappointed feelings and he stated he lives in [facility] and he is looking for to return back home in [place] when physically able.
Per PT pt is at supervision level and in a few days pt might get to more independent level. Per PT they will work with the pt on a daily basis to improve his functional ability.
D/C plan: most likely return back home in [facility] with VN services. Pt stated he will need help to get to [place] at discharge.
CM will follow to assist pt with discharge plan updates as hospitalization progresses
--- NOTE | 2023-11-14 14:11 | W.PN.HOSP.TC ---
Today's Communication/Plan
-
Pending outpatient arrangements discharge home on 11/15
Assessment / Plan
Assessment / Plan
43y M with PMH significant for opioid dependence and recent admission for sepsis and cellulitis who presents to ED due to lack of available chronic medications at the facility to which he was discharged.
Chronic Opioid Dependence:
-cont Methadone
RLE Cellulitis/Wound with MSSA bacteremia:
-completed course of abx 11/03/23
Seizure Disorder:
-h/o cerebral Palsy
-Continue Klonopin/Depakote
Mood Disorder:
-Continue Klonopin/Depakote/Zoloft/trazodone/Risperdal
FULL/Lovenox
Remains medically stable for d/c.
Patient with sepsis and bacteremia, hospital course complicated with acute kidney injury and TME with currently improved mental status back to baseline.�There has to be no neurologic or behavioral abnormalities. Given significant deconditioning
patient will required further debilitation in custodial facility with anticipated length of stay less than 30 days.
Anticipated Discharge: 24 - 48 hours
Subjective/Interval History
-
Date of Service: November 14, 2023
Objective Data
-
Vital Signs:
Vital Signs
Temp Pulse Resp BP Pulse Ox
97.8 F 60 18 124/84 99
11/14/23 07:32 11/14/23 07:32 11/14/23 07:32 11/14/23 07:32 11/14/23 07:32
I&O
11/13/23 11/14/23 11/15/23
06:59 06:59 06:59
Intake Total 720 / 720 1800 / 1800
Output Total 825 / 825 700 / 700 600 / 600
Balance -105 / -105 1100 / 1100 -600 / -600
Physical Exam
-
General: Well Developed and No Apparent Distress
HEENT: Normocephalic, Atraumatic and Moist Mucous Membranes
Respiratory: Clear to Auscultation
Cardiac: Regular Rhythm and S1/S2; Negative Murmur, Rub or Gallop
GI: Soft, Nontender, Nondistended and Normal Bowel Sounds; Negative Organomegaly
Rectal: Deferred by Provider
Musculoskeletal: No Clubbing, No Cyanosis and No Edema
Skin: Negative Rash
Neuro: Nonfocal/Grossly Intact
[2023-11-14 15:34] VITALS: BP 112/80
[2023-11-14] MEDS: LOVENOX 40 MG SC (17:10)
[2023-11-14] MEDS: DEPAKOTE (12 HR RELEASE) 1000 MG PO (21:31)
[2023-11-14] MEDS: DESYREL 75 MG PO (21:31)
[2023-11-14] MEDS: RISPERDAL 1 MG PO (21:31)
[2023-11-14 23:32] VITALS: BP 130/79
[2023-11-15 07:11] VITALS: BP 131/81
[2023-11-15] MEDS: PROTONIX 40 MG PO (08:22)
[2023-11-15] MEDS: DEPAKOTE (12 HR RELEASE) 250 MG PO (08:22)
[2023-11-15] MEDS: ZOLOFT 100 MG PO ×2 (08:22→20:49)
[2023-11-15] MEDS: NEURONTIN 100 MG PO (08:22)
[2023-11-15] MEDS: KLONOPIN 0.5 MG PO ×4 (08:22→22:02)
[2023-11-15] MEDS: NICODERM TRANSDERMAL 21 MG TRANSDERM (08:22)
[2023-11-15] MEDS: MIRALAX PO (08:23)
[2023-11-15] MEDS: METHADONE 100 MG/10 ML 140 MG PO (08:23)
--- NOTE | 2023-11-15 08:37 | W.PN.HOSP.TC ---
Today's Communication/Plan
-
Continue current management. Discharge planning in progress
Assessment / Plan
Assessment / Plan
Physical exam:
General: Well Developed, Well Nourished and No Apparent Distress
HEENT: Normocephalic, Atraumatic and Moist Mucous Membranes
Respiratory: Clear to Auscultation; Negative Wheezes, Rales or Rhonchi
Cardiac: Regular Rhythm and S1/S2
GI: Soft, Nontender and Nondistended
Musculoskeletal: No Clubbing, No Cyanosis and No Edema
Neuro: Awake, Alert and Oriented
Psych: Calm
A/P:
43y M with PMH significant for opioid dependence and recent admission for sepsis and cellulitis who presents to ED due to lack of available chronic medications at the facility to which he was discharged.
Chronic Opioid Dependence:
-cont Methadone
RLE Cellulitis/Wound with MSSA bacteremia:
-completed course of abx 11/03/23
Seizure Disorder:
-h/o cerebral Palsy
-Continue Klonopin/Depakote
Mood Disorder:
-Continue Klonopin/Depakote/Zoloft/trazodone/Risperdal
FULL/Lovenox
Remains medically stable for d/c.
Patient with sepsis and bacteremia, hospital course complicated with acute kidney injury and TME with currently improved mental status back to baseline.�There has to be no neurologic or behavioral abnormalities. Given significant deconditioning
patient will required further debilitation in intermediate facility with anticipated length of stay less than 30 days.
Anticipated Discharge: 24 - 48 hours
Subjective/Interval History
-
Date of Service: November 15, 2023
Patient seen and examined today. No new complaints. She expresses some concerns about discharge plan and he will talk to case repairer.
Objective Data
-
Vital Signs:
Vital Signs
Temp Pulse Resp BP Pulse Ox
98.1 F 57 18 130/79 97
11/14/23 23:32 11/14/23 23:32 11/14/23 23:32 11/14/23 23:32 11/15/23 01:16
I&O
11/14/23 11/15/23 11/16/23
06:59 06:59 06:59
Intake Total 1800 / 1800 480 / 480
Output Total 700 / 700 600 / 600
Balance 1100 / 1100 -120 / -120
[2023-11-15 15:10] VITALS: BP 124/78
[2023-11-15] MEDS: LOVENOX 40 MG SC (17:12)
[2023-11-15] MEDS: DESYREL 75 MG PO (22:00)
[2023-11-15] MEDS: RISPERDAL 1 MG PO (22:01)
[2023-11-15] MEDS: DEPAKOTE (12 HR RELEASE) 1000 MG PO (22:01)
[2023-11-15 23:12] VITALS: BP 110/74
[2023-11-16 07:48] VITALS: BP 129/89
[2023-11-16] MEDS: NICODERM TRANSDERMAL 21 MG TRANSDERM (08:20)
[2023-11-16] MEDS: MIRALAX 17 GRAMS PO (08:20)
[2023-11-16] MEDS: KLONOPIN 0.5 MG PO ×4 (08:21→21:38)
[2023-11-16] MEDS: NEURONTIN 100 MG PO (08:21)
[2023-11-16] MEDS: ZOLOFT 100 MG PO ×2 (08:21→20:09)
[2023-11-16] MEDS: PROTONIX 40 MG PO (08:21)
[2023-11-16] MEDS: DEPAKOTE (12 HR RELEASE) 250 MG PO (08:21)
[2023-11-16] MEDS: METHADONE 100 MG/10 ML 140 MG PO (08:21)
--- NOTE | 2023-11-16 08:38 | W.PN.HOSP.TC ---
Today's Communication/Plan
-
Continue current management. Discharge planning in progress.
Assessment / Plan
Assessment / Plan
Physical exam:
General: Well Developed, Well Nourished and No Apparent Distress
HEENT: Normocephalic, Atraumatic and Moist Mucous Membranes
Respiratory: Clear to Auscultation; Negative Wheezes, Rales or Rhonchi
Cardiac: Regular Rhythm and S1/S2
GI: Soft, Nontender and Nondistended
Musculoskeletal: No Clubbing, No Cyanosis and No Edema
Neuro: Awake, Alert and Oriented
Psych: Calm
A/P:
43y M with PMH significant for opioid dependence and recent admission for sepsis and cellulitis who presents to ED due to lack of available chronic medications at the facility to which he was discharged.
Chronic Opioid Dependence:
-cont Methadone
RLE Cellulitis/Wound with MSSA bacteremia:
-completed course of abx 11/03/23
Seizure Disorder:
-h/o cerebral Palsy
-Continue Klonopin/Depakote
Mood Disorder:
-Continue Klonopin/Depakote/Zoloft/trazodone/Risperdal
FULL/Lovenox
Remains medically stable for d/c.
Patient with sepsis and bacteremia, hospital course complicated with acute kidney injury and TME with currently improved mental status back to baseline.�There has to be no neurologic or behavioral abnormalities. Given significant deconditioning
patient will required [facility] debilitation in [facility] facility with anticipated length of stay less than 30 days. Currently the plan is to go home with home health services. Case management will discuss patient today.
Anticipated Discharge: Within 24 hours
Subjective/Interval History
-
Date of Service: November 16, 2023
Patient seen and examined. Patient tells me he is not comfortable going home today so I asked case preparer and liner to discuss with him today.
Objective Data
-
Vital Signs:
Vital Signs
Temp Pulse Resp BP Pulse Ox
98.4 F 62 16 129/89 97
11/16/23 07:48 11/16/23 07:48 11/16/23 07:48 11/16/23 07:48 11/16/23 07:48
I&O
11/15/23 11/16/23 11/17/23
06:59 06:59 06:59
Intake Total 480 / 480 1200 / 1200
Output Total 600 / 600 2270 / 2270
Balance -120 / -120 -1070 / -1070
--- NOTE | 2023-11-16 14:00 | CM ---
Addendum entered by Katie Muller 11/16/23 15:01:
patient address in [place] is [address] [place] [id number]. Patient agreed to referral to [facility] and CM sent referral via all scripts. Patient will need to have referral to [facility] services for services assessment. CM will
continue to follow for discharge planning needs.
Original Note:
Patient seen at bedside. Patient stated that he has concerns about transportation when he does go home and indicated that he normally rides a bus. Patient open to referral for VN at [facility] following review of PAC data. Patient may benefit from
referral to adult services in [facility] closer to discharge for services/supports that he may qualify for. CM will continue to follow for discharge planning needs.
Plan; home with VN; will need referral
[2023-11-16 14:59] VITALS: BP 116/68
[2023-11-16] MEDS: LOVENOX 40 MG SC (17:11)
[2023-11-16] MEDS: RISPERDAL 1 MG PO (21:38)
[2023-11-16] MEDS: DESYREL 75 MG PO (21:38)
[2023-11-16] MEDS: DEPAKOTE (12 HR RELEASE) 1000 MG PO (21:39)
[2023-11-16 23:31] VITALS: BP 113/66
[2023-11-17 07:45] VITALS: BP 120/75
[2023-11-17] MEDS: METHADONE 100 MG/10 ML 140 MG PO (08:24)
[2023-11-17] MEDS: DEPAKOTE (12 HR RELEASE) 250 MG PO (08:24)
[2023-11-17] MEDS: KLONOPIN 0.5 MG PO (08:24)
[2023-11-17] MEDS: ZOLOFT 100 MG PO (08:24)
[2023-11-17] MEDS: PROTONIX 40 MG PO (08:25)
[2023-11-17] MEDS: MIRALAX 17 GRAMS PO (08:25)
[2023-11-17] MEDS: NEURONTIN 100 MG PO (08:25)
[2023-11-17] MEDS: NICODERM TRANSDERMAL 21 MG TRANSDERM (08:25)
--- NOTE | 2023-11-17 11:46 | W.DS.TRANS ---
DC Summary - Cotton Breeder
-
Discharge Instructions:
Discharge Diagnosis/Procedures Bacteremia
Opiate dependence
CP
Diet Regular
Instructions:
Stand-Alone Forms:
Changes to Home Medications: No
Discharge Medications:
DC Medications w/original date entered in [employer]
divalproex 500 mg tablet,delayed release 1,000 mg PO HS Seizures 10/21/23
divalproex 500 mg tablet,delayed release 250 mg PO DAILY Seizures 10/21/23
gabapentin 100 mg capsule 100 mg PO DAILY Pain 10/21/23
nicotine 21 mg/24 hr daily transdermal patch 1 patch transdermal DAILY Smoking Cessation 10/21/23
omeprazole 40 mg capsule,delayed release 40 mg PO DAILY Gastrointestinal Issue 10/21/23
sertraline 100 mg tablet 100 mg PO BID Mental Health/Anxiety 10/21/23
acetaminophen 325 mg tablet 650 mg PO Q4HPRN PRN SALMON/mild pain/temp > 100.4 F #30 tabs 10/31/23
bisacodyl 5 mg tablet,delayed release 10 mg PO DAILYPRN PRN constipation #30 tabs 10/31/23
polyethylene glycol 3350 17 gram oral powder packet ([employer]) 17 g PO DAILY #30 ea 10/31/23
risperidone 1 mg tablet 1 mg PO HS #30 tabs 10/31/23
trazodone 50 mg tablet 75 mg PO HS #30 tabs 10/31/23
clonazepam 0.5 mg tablet 0.5 mg PO QID Mental Health/Anxiety #14 tabs 11/10/23
methadone 10 mg tablet 140 mg PO DAILY SUBSTANCE USE DISORDER #42 tabs 11/10/23
Home Medication Changes
Pending Results: No
--- NOTE | 2023-11-17 14:28 | CM ---
Reviewed the chart notes and spoke with the patient at the bedside. The patient is being discharged to home via Lyft. Patient's mother Meghana notified of discharge. CM attempting to arrange for VN for the patient. Patient's PCP is Dr. Bates
Marco A NASH. CM continues to be available to patient/family and is monitoring medical plan for needs at discharge.
Plan: Discharge to home today via Ly[employer] paid for by .
[2023-11-17] MEDS: KLONOPIN PO (14:30)
[2023-11-17 15:20] VITALS: BP 127/77
== END 2023-11-17 15:08 | disposition home or self-care (01) | DRG 897 ==
LOC: 2 NORTH 11:05
PROVIDERS: ADMITTING PHYSICIAN Hospitalist; ATTENDING PHYSICIAN Internal Medicine; EMERGENCY PHYSICIAN Emergency Medicine
DX: F11.20 Opioid dependence, uncomplicated (principal); G80.9 Cerebral palsy, unspecified; Z75.1 Person awaiting admission to adequate facility elsewhere; G40.909 Epilepsy, unspecified, not intractable, without status epilepticus; F41.9 Anxiety disorder, unspecified; F90.9 Attention-deficit hyperactivity disorder, unspecified type; F10.10 Alcohol abuse, uncomplicated; F32.A Depression, unspecified; F39 Unspecified mood [affective] disorder; F17.210 Nicotine dependence, cigarettes, uncomplicated; G89.29 Other chronic pain; Z96.649 Presence of unspecified artificial hip joint; Z88.8 Allergy status to other drugs, medicaments and biological substances
CPT/HCPCS: 87070; 97116; 97166; 97530; 97535; 99284